=== PATIENT | male | born 1965 | race Caucasian/White ===

== ENCOUNTER → 2016-12-08 | Outpatient (CLI) | payer BC ==
[~2016-12-08] MED LIST: ATEN25TA PO; BAYE325T12 PO; ELIQ5TAB PO; FLEC150T PO; FLEC50TA PO
--- NOTE | 2016-12-10 06:27 | SLEEPCENT ---
DATE OF PROCEDURE: 12/08/2016 ORDERED BY: MIS Woods Nocturnal polysomnography was performed for re-titration of pressure therapy in this patient with obstructive sleep apnea syndrome. For testing, a ResMed Mirage Quattro full face mask was used of medium size. 10 cm of water was applied to the circuit and the lights were extinguished. 7 hours and 54 minutes of data were reviewed. There were 376 minutes of sleep identified. Sleep latency was mildly prolonged at 27 minutes. Rapid eye movement (REM) latency was short at 55 minutes. Sleep architecture was fair, but there was some fragmentation early in the study. Overall sleep efficiency was good at 81%. The patient's electrocardiogram (EKG) showed a sinus rhythm with an average heart rate of 56 beats per minute. Electroencephalogram (EEG) showed fairly normal waveforms for awake and sleep. Respiratory events were found best palliated with CPAP at pressure of +12. CPAP tolerance was reasonably good. Some limb activity was noted. Only 1 train of 30 events. Limb movement arousal index was 5.3. IMPRESSION: Obstructive sleep apnea syndrome (G47.33). RECOMMENDATION: Nightly use of pressure therapy 12 cm of water.
== END ==
LOC: M SLEEP 19:52
PROVIDERS: ATTEND Nurse Practitioner Adult Health
DX: G47.33 Obstructive sleep apnea (adult) (pediatric) (principal)

== ENCOUNTER → 2016-12-16 | Outpatient (REF) | payer BC ==
[2016-12-16 13:06] LABS: MEAN CORPUSCULAR HEMOGLOBIN 29.8 pg (27.0-33.0); MEAN CORPUSCULAR HGB CONC 33.2 g/dl (32.0-36.5); MEAN CORPUSCULAR VOLUME 89.5 fl (80.0-96.0); RED CELL DISTRIBUTION WIDTH 12.5 % (11.5-14.5); WHITE BLOOD COUNT 5.3 K/mm3 (4.0-10.0)
[2016-12-16 13:30] LABS: ALBUMIN 3.9 GM/DL (3.2-5.2); ALBUMIN/GLOBULIN RATIO 1.44 (1.00-1.93); ALKALINE PHOSPHATASE 65 U/L (45-117); ALT/SGPT 59 U/L (12-78); ANION GAP 6 MEQ/L (8-16); AST/SGOT 24 U/L (15-37); BILIRUBIN,TOTAL 0.5 MG/DL (0.2-1.0); BLOOD UREA NITROGEN 17 MG/DL (7-18); CALCIUM LEVEL 8.6 MG/DL (8.5-10.1); CARBON DIOXIDE LEVEL 31 MEQ/L (21-32); CHLORIDE LEVEL 104 MEQ/L (98-107); CHOLESTEROL LEVEL 170 MG/DL (<200); CREATININE FOR GFR 0.84 MG/DL (0.70-1.30); FREE T4 1.13 NG/DL (0.76-1.46); GLOMERULAR FILTRATION RATE > 60.0 (>60); GLUCOSE, FASTING 97 MG/DL (70-105); POTASSIUM SERUM 4.6 MEQ/L (3.5-5.1); SODIUM LEVEL 141 MEQ/L (136-145); TOTAL PROTEIN 6.6 GM/DL (6.4-8.2); TRIGLYCERIDES LEVEL 90 MG/DL (<150)
== END ==
LOC: M SFHCADAM 12:33
PROVIDERS: ATTEND Family Medicine
DX: R53.82 Chronic fatigue, unspecified (principal); R94.6 Abnormal results of thyroid function studies; E29.1 Testicular hypofunction; E55.9 Vitamin D deficiency, unspecified

== ENCOUNTER → 2017-05-29 | Outpatient (REF) | payer BC | LOC: M LAB REF 08:33 | PROVIDERS: ATTEND Family Medicine | DX: R19.7 Diarrhea, unspecified (principal) ==

== ENCOUNTER → 2017-10-27 | Outpatient (REF) | payer BC ==
[2017-10-27 12:35] LABS: MEAN CORPUSCULAR HEMOGLOBIN 29.7 pg (27.0-33.0); MEAN CORPUSCULAR HGB CONC 33.8 g/dl (32.0-36.5); PLATELET COUNT, AUTOMATED 197 10^3/uL (150-450); RED CELL DISTRIBUTION WIDTH 12.7 % (11.5-14.5); WHITE BLOOD COUNT 7.6 10^3/uL (4.0-10.0)
[2017-10-27 13:32] LABS: ALBUMIN 3.7 GM/DL (3.2-5.2); ALBUMIN/GLOBULIN RATIO 1.12 (1.00-1.93); ALKALINE PHOSPHATASE 67 U/L (45-117); ALT/SGPT 33 U/L (12-78); ANION GAP 5 MEQ/L (8-16); AST/SGOT 18 U/L (7-37); BILIRUBIN,TOTAL 0.4 MG/DL (0.2-1.0); BLOOD UREA NITROGEN 21 MG/DL (7-18); CALCIUM LEVEL 8.8 MG/DL (8.5-10.1); CARBON DIOXIDE LEVEL 31 MEQ/L (21-32); CHLORIDE LEVEL 107 MEQ/L (98-107); CHOLESTEROL LEVEL 196 MG/DL (<200); CREATININE FOR GFR 0.86 MG/DL (0.70-1.30); FREE T4 1.07 NG/DL (0.76-1.46); GLOMERULAR FILTRATION RATE > 60.0 (>56); GLUCOSE, FASTING 97 MG/DL (70-105); POTASSIUM SERUM 4.4 MEQ/L (3.5-5.1); PSA SCREENING 1.27 NG/ML (< 4.0); SODIUM LEVEL 143 MEQ/L (136-145); TRIGLYCERIDES LEVEL 53 MG/DL (<150)
== END ==
LOC: M SFHCADAM 08:19
DX: I48.91 Unspecified atrial fibrillation (principal); Z98.890 Other specified postprocedural states; I11.9 Hypertensive heart disease without heart failure; R94.6 Abnormal results of thyroid function studies; E78.5 Hyperlipidemia, unspecified; Z12.5 Encounter for screening for malignant neoplasm of prostate; E55.9 Vitamin D deficiency, unspecified
CPT/HCPCS: 84443

== ENCOUNTER → 2018-05-09 | Outpatient (REF) | payer BC ==
[2018-05-09 12:48] LABS: CHOLESTEROL LEVEL 188 MG/DL (<200); HDL CHOLESTEROL 39 MG/DL (>40); NON-HDL-C 149 MG/DL; TRIGLYCERIDES LEVEL 60 MG/DL (<150)
== END ==
LOC: M SFHCADAM 10:51
DX: E78.5 Hyperlipidemia, unspecified (principal)

== ENCOUNTER → 2018-11-16 | Outpatient (REF) | payer BC ==
[~2018-11-16] MED LIST changes: +FLEC50HA PO; -FLEC50TA PO
[2018-11-16 13:01] LABS: HEMATOCRIT 48.7 % (42.0-52.0); HEMOGLOBIN 16.1 g/dl (13.5-17.5); MEAN CORPUSCULAR HEMOGLOBIN 29.7 pg (27.0-33.0); MEAN CORPUSCULAR HGB CONC 33.1 g/dl (32.0-36.5); MEAN CORPUSCULAR VOLUME 89.9 fl (80.0-96.0); PLATELET COUNT, AUTOMATED 204 10^3/uL (150-450); RED BLOOD COUNT 5.42 10^6/uL (4.30-6.10); WHITE BLOOD COUNT 6.6 10^3/uL (4.0-10.0)
[2018-11-16 13:13] LABS: ALBUMIN 3.7 GM/DL (3.2-5.2); ALT/SGPT 34 U/L (12-78); BILIRUBIN,TOTAL 0.7 MG/DL (0.2-1.0); BLOOD UREA NITROGEN 16 MG/DL (7-18); CALCIUM LEVEL 8.9 MG/DL (8.5-10.1); CARBON DIOXIDE LEVEL 27 MEQ/L (21-32); CHLORIDE LEVEL 106 MEQ/L (98-107); CHOLESTEROL LEVEL 173 MG/DL (<200); CHOLESTEROL RISK RATIO 4.805 (<5); CREATININE FOR GFR 0.79 MG/DL (0.70-1.30); FREE T4 1.07 NG/DL (0.76-1.46); GLOMERULAR FILTRATION RATE > 60.0 (>56); GLUCOSE, FASTING 92 MG/DL (70-100); HDL CHOLESTEROL 36 MG/DL (>40); LDL CHOLESTEROL 125 MG/DL (<100); NON-HDL-C 137 MG/DL; POTASSIUM SERUM 4.4 MEQ/L (3.5-5.1); SODIUM LEVEL 142 MEQ/L (136-145); TOTAL PROTEIN 6.9 GM/DL (6.4-8.2); TRIGLYCERIDES LEVEL 60 MG/DL (<150)
== END ==
LOC: M SFHCADAM 08:11
PROVIDERS: ATTEND Family Medicine
DX: I11.9 Hypertensive heart disease without heart failure (principal); I48.91 Unspecified atrial fibrillation; R94.6 Abnormal results of thyroid function studies; E78.5 Hyperlipidemia, unspecified; Z12.5 Encounter for screening for malignant neoplasm of prostate
CPT/HCPCS: 80053; 80061; 84439; 84443; 85027; G0103

== ENCOUNTER 2019-01-08 08:10 | Day surgery (SDC) | payer BC ==
[~2019-01-08] VITALS: Ht 170.2 cm; Wt 85.3 kg
[~2019-01-08 08:10] MED LIST changes: +AMLO10TA5 PO; +ASPI1TAB PO; +SOTA80TA2 PO
[2019-01-08] MEDS ORDERED: LIDOCAINE 2% INJ 100 MG/5 ML SDV (FOR ANES.) As Ordered ONE (08:43)
[2019-01-08] MEDS ORDERED: PROPOFOL 200 MG/20 ML VIAL As Ordered ONE ×2 (08:43→09:34)
[2019-01-08] MEDS ORDERED: NS 1,000 ML IV ONE (09:00)
--- NOTE | 2019-01-08 09:45 | ROOR ---
Patient Name: Dyllan Cuevas Procedure Date: 01/08/2019 9:00 AM Date of : 1965 Age: 53 Room: [facility] Gender: Male Note Status: Finalized Procedure: Colonoscopy Indications: Screening for colorectal malignant neoplasm Providers: Aleks DUNCAN MD Referring MD: Aron Ayon MD Requesting Provider: Medicines: Monitored Anesthesia Care Complications: No immediate complications. Procedure: Pre-Anesthesia Assessment: - The heart rate, respiratory rate, oxygen saturations, blood pressure, adequacy of pulmonary ventilation, and response to care were monitored throughout the procedure. The Colonoscope was introduced through the anus and advanced to the cecum, identified by appendiceal orifice and ileocecal valve. The colonoscopy was performed without difficulty. The patient tolerated the procedure well. The quality of the bowel preparation was good. Findings: The perianal and digital rectal examinations were normal. A 40 mm polyp was found in the mid ascending colon. The polyp was multi-lobulated. The polyp was removed with a piecemeal technique using a hot snare. Polyp resection was incomplete, and the resected tissue was partially retrieved. To prevent bleeding after the polypectomy, six hemostatic clips were successfully placed. Area was successfully injected with 4 mL Vivian ink for tattooing. The ileocecal valve was moderately lipomatous. This was biopsied with a cold forceps for histology-r/o adenoma. The exam was otherwise without abnormality on direct and retroflexion views. Impression: - One large (~40 mm) flat multilobed polyp in the mid ascending colon, removed piecemeal using a hot snare. Polyp resection was INCOMPLETE, and the resected tissue was partially retrieved. Clips were placed. Injected with Tattoo. - Lipomatous ileocecal valve. Biopsied. - The examination was otherwise normal on direct and retroflexion views. Recommendation: - No ibuprofen, naproxen, or other non-steroidal anti-inflammatory drugs for 10 days after polyp removal. - Await pathology results. - If the pathology report is benign, then repeat colonoscopy for surveillance after piecemeal polypectomy in 4 months. - If the pathology report is malignant, then refer to a surgeon. - Telephone endoscopist for pathology results in 2 weeks. Aleks Duncan MD Aleks DUNCAN MD 01/08/2019 9:44:24 AM This report has been signed electronically. Number of Addenda: 0 Note Initiated On: 01/08/2019 9:00 AM Estimated Blood Loss: Estimated blood loss: none.
[2019-01-08 10:37] VITALS: BP 127/79
== END 2019-01-08 10:37 | disposition home or self-care (01) ==
LOC: M OPP 08:10
PROVIDERS: ATTEND Internal Medicine Gastroenterology
DX: Z12.11 Encounter for screening for malignant neoplasm of colon (principal); D12.2 Benign neoplasm of ascending colon; K63.89 Other specified diseases of intestine; I48.91 Unspecified atrial fibrillation; G47.30 Sleep apnea, unspecified; Z79.82 Long term (current) use of aspirin; Z79.899 Other long term (current) drug therapy

== ENCOUNTER → 2019-05-04 | Outpatient (REF) | payer BC ==
[~2019-05-04] MED LIST changes: -ASPI1TAB PO; +ASPI81TA26 PO
[2019-05-04 13:09] LABS: CHOLESTEROL RISK RATIO 4.093 (<5)
[2019-05-04 13:10] LABS: TOTAL 25(OH) VITAMIN D 55.6 NG/ML (30.0-100.0)
== END ==
LOC: M SFHCADAM 08:08
PROVIDERS: ATTEND Family Medicine
DX: I11.9 Hypertensive heart disease without heart failure (principal); I48.91 Unspecified atrial fibrillation; E78.5 Hyperlipidemia, unspecified; E55.9 Vitamin D deficiency, unspecified

== ENCOUNTER → 2019-05-10 | Outpatient (REF) | payer BC ==
[2019-05-10 13:41] LABS: FREE T4 0.99 NG/DL (0.76-1.46); THYROID STIMULATING HORMONE 2.71 uIU/ML (0.358-3.740)
== END ==
LOC: M SFHCADAM 08:48
PROVIDERS: ATTEND Family Medicine
DX: I48.91 Unspecified atrial fibrillation (principal); R94.6 Abnormal results of thyroid function studies

== ENCOUNTER 2019-08-07 07:51 | Day surgery (SDC) | payer BC ==
[~2019-08-07] VITALS: Ht 170.2 cm; Wt 83.0 kg
[~2019-08-07 07:51] MED LIST changes: +propofoL 200 MG/20 ML VIAL As Ordered ONE
[2019-08-07] MEDS ORDERED: NS 1,000 ML IV ONE (08:30)
[2019-08-07] MEDS ORDERED: propofoL 200 MG/20 ML VIAL As Ordered ONE (09:32)
--- NOTE | 2019-08-07 09:36 | ROOR ---
Patient Name: Dyllan Cuevas Procedure Date: 08/07/2019 9:00 AM Date of : 1965 Age: 53 Room: [facility] Gender: Male Note Status: Finalized Procedure: Colonoscopy Indications: Last colonoscopy: December 2018, Therapeutic procedure for known colon polyp, Therapeutic procedure for known colon mass Providers: Aleks DUNCAN MD Referring MD: Aron Ayon MD Requesting Provider: Medicines: Monitored Anesthesia Care Complications: No immediate complications. Procedure: Pre-Anesthesia Assessment: - The heart rate, respiratory rate, oxygen saturations, blood pressure, adequacy of pulmonary ventilation, and response to care were monitored throughout the procedure. The Colonoscope was introduced through the anus and advanced to the cecum, identified by appendiceal orifice and ileocecal valve. The colonoscopy was performed without difficulty. The patient tolerated the procedure well. The quality of the bowel preparation was good. Findings: The perianal and digital rectal examinations were normal. A tattoo was seen in the mid ascending colon. The tattoo site appeared abnormal. A 30 mm polyp was found in the mid ascending colon. The polyp was sessile. The polyp was removed with a hot snare. Resection and retrieval were complete. The exam was otherwise without abnormality on direct and retroflexion views. Impression: - A tattoo was seen in the mid ascending colon. The tattoo site appeared abnormal. - One 25-30 mm residual polyp/lesion in the mid ascending colon, removed sucessfully piecemeal with a hot snare. Resected piecemeal and retrieved. Final visual result suggests excision is complete. - The examination was otherwise normal on direct and retroflexion views. Recommendation: - No ibuprofen, naproxen, or other non-steroidal anti-inflammatory drugs for 10 days after polyp removal. - Await pathology results. - Repeat colonoscopy in 1 year for surveillance after piecemeal polypectomy. - Telephone endoscopist for pathology results in 2 weeks. Aleks Duncan MD Aleks DUNCAN MD 08/07/2019 9:36:23 AM Electronically signed by Aleks DUNCAN MD Number of Addenda: 0 Note Initiated On: 08/07/2019 9:00 AM Estimated Blood Loss: Estimated blood loss: none.
[2019-08-07 09:50] VITALS: BP 120/72
== END 2019-08-07 10:03 | disposition home or self-care (01) ==
LOC: M OPP 07:51
PROVIDERS: ATTEND Internal Medicine Gastroenterology
DX: D37.4 Neoplasm of uncertain behavior of colon (principal); Z86.010 Personal history of colon polyps; D12.2 Benign neoplasm of ascending colon; K63.89 Other specified diseases of intestine; I48.91 Unspecified atrial fibrillation; I10 Essential (primary) hypertension; G47.30 Sleep apnea, unspecified; Z79.82 Long term (current) use of aspirin; Z79.899 Other long term (current) drug therapy

== ENCOUNTER → 2019-11-15 | Outpatient (REF) | payer BC ==
[~2019-11-15] MED LIST changes: -propofoL 200 MG/20 ML VIAL As Ordered ONE
[2019-11-15 12:51] LABS: HEMATOCRIT 52.9 % (42.0-52.0); HEMOGLOBIN 17.1 g/dl (13.5-17.5); MEAN CORPUSCULAR HEMOGLOBIN 29.3 pg (27.0-33.0); MEAN CORPUSCULAR HGB CONC 32.3 g/dl (32.0-36.5); MEAN CORPUSCULAR VOLUME 90.7 fl (80.0-96.0); PLATELET COUNT, AUTOMATED 169 10^3/uL (150-450); RED BLOOD COUNT 5.83 10^6/uL (4.30-6.10); WHITE BLOOD COUNT 7.2 10^3/uL (4.0-10.0)
[2019-11-15 13:03] LABS: ALBUMIN 3.9 GM/DL (3.2-5.2); ALT/SGPT 41 U/L (12-78); BILIRUBIN,TOTAL 0.5 MG/DL (0.2-1.0); BLOOD UREA NITROGEN 18 MG/DL (7-18); CALCIUM LEVEL 8.6 MG/DL (8.5-10.1); CARBON DIOXIDE LEVEL 28 MEQ/L (21-32); CHLORIDE LEVEL 109 MEQ/L (98-107); CHOLESTEROL LEVEL 188 MG/DL (<200); CHOLESTEROL RISK RATIO 4.947 (<5); CREATININE FOR GFR 0.86 MG/DL (0.70-1.30); FREE T4 0.96 NG/DL (0.76-1.46); GLOMERULAR FILTRATION RATE > 60.0 (>56); GLUCOSE, FASTING 93 MG/DL (70-100); HDL CHOLESTEROL 38 MG/DL (>40); LDL CHOLESTEROL 140 MG/DL (<100); NON-HDL-C 150 MG/DL; POTASSIUM SERUM 4.3 MEQ/L (3.5-5.1); SODIUM LEVEL 141 MEQ/L (136-145); TOTAL PROTEIN 7.1 GM/DL (6.4-8.2); TRIGLYCERIDES LEVEL 52 MG/DL (<150)
[2019-11-15 13:04] LABS: VITAMIN B12 LEVEL 730 PG/ML (247-911)
[2019-11-15 15:16] LABS: FOLATE > 24.0 NG/ML (>5.4)
== END ==
LOC: M SFHCADAM 08:04
PROVIDERS: ATTEND Family Medicine
DX: Z12.5 Encounter for screening for malignant neoplasm of prostate (principal); R53.83 Other fatigue; I11.9 Hypertensive heart disease without heart failure; E78.5 Hyperlipidemia, unspecified; R94.6 Abnormal results of thyroid function studies
CPT/HCPCS: 80053; 80061; 82607; 82746; 84439; 84443; 85027; G0103

== ENCOUNTER → 2020-01-01 | Outpatient (REF) | payer BC ==
[2020-01-01 13:04] LABS: FREE T4 1.13 NG/DL (0.76-1.46); THYROID STIMULATING HORMONE 0.98 uIU/ML (0.358-3.740)
== END ==
LOC: M SFHCADAM 08:16
PROVIDERS: ATTEND Family Medicine
DX: E03.9 Hypothyroidism, unspecified (principal)

== ENCOUNTER → 2020-01-10 | Outpatient (REF) | payer BC ==
[2020-01-10 13:23] LABS: HEMATOCRIT 50.3 % (42.0-52.0); HEMOGLOBIN 16.3 g/dl (13.5-17.5); MEAN CORPUSCULAR HEMOGLOBIN 29.4 pg (27.0-33.0); MEAN CORPUSCULAR HGB CONC 32.4 g/dl (32.0-36.5); MEAN CORPUSCULAR VOLUME 90.8 fl (80.0-96.0); PLATELET COUNT, AUTOMATED 167 10^3/uL (150-450); RED BLOOD COUNT 5.54 10^6/uL (4.30-6.10); WHITE BLOOD COUNT 9.2 10^3/uL (4.0-10.0)
[2020-01-10 13:52] LABS: ALBUMIN 3.8 GM/DL (3.2-5.2); ALT/SGPT 39 U/L (12-78); BILIRUBIN,TOTAL 0.6 MG/DL (0.2-1.0); BLOOD UREA NITROGEN 20 MG/DL (7-18); CALCIUM LEVEL 9.2 MG/DL (8.5-10.1); CARBON DIOXIDE LEVEL 30 MEQ/L (21-32); CHLORIDE LEVEL 108 MEQ/L (98-107); CREATININE FOR GFR 0.77 MG/DL (0.70-1.30); GLOMERULAR FILTRATION RATE > 60.0 (>56); GLUCOSE, FASTING 112 MG/DL (70-100); POTASSIUM SERUM 4.2 MEQ/L (3.5-5.1); SODIUM LEVEL 141 MEQ/L (136-145); TOTAL PROTEIN 6.9 GM/DL (6.4-8.2)
[2020-01-12 00:11] LABS: LEAD BLOOD ADULT <1 ug/dL (0-4); MERCURY LEVEL None Detected ug/L (0.0-14.9)
== END ==
LOC: M SFHCADAM 10:37
PROVIDERS: ATTEND Family Medicine
DX: R53.83 Other fatigue (principal); Z91.89 Other specified personal risk factors, not elsewhere classified

== ENCOUNTER → 2020-04-23 | Outpatient (REF) | payer BC ==
[~2020-04-23] MED LIST changes: -AMLO10TA5 PO; +AMLO1TAB25 PO
[2020-04-23 17:40] LABS: FREE T4 1.05 NG/DL (0.76-1.46); MAGNESIUM LEVEL 2.4 MG/DL (1.8-2.4); THYROID STIMULATING HORMONE 0.77 uIU/ML (0.358-3.740); TOTAL 25(OH) VITAMIN D 28.3 NG/ML (30.0-100.0)
== END ==
LOC: M SFHCADAM 15:08
PROVIDERS: ATTEND Family Medicine
DX: R94.6 Abnormal results of thyroid function studies (principal); I48.91 Unspecified atrial fibrillation; E55.9 Vitamin D deficiency, unspecified

== ENCOUNTER → 2020-09-08 | Outpatient (REF) | payer BC ==
[2020-09-08 13:55] LABS: HEMATOCRIT 51.6 % (42.0-52.0); HEMOGLOBIN 16.3 g/dl (13.5-17.5); MEAN CORPUSCULAR HEMOGLOBIN 29.2 pg (27.0-33.0); MEAN CORPUSCULAR HGB CONC 31.6 g/dl (32.0-36.5); MEAN CORPUSCULAR VOLUME 92.3 fl (80.0-96.0); PLATELET COUNT, AUTOMATED 183 10^3/uL (150-450); RED BLOOD COUNT 5.59 10^6/uL (4.30-6.10); WHITE BLOOD COUNT 5.8 10^3/uL (4.0-10.0)
[2020-09-08 14:59] LABS: ALBUMIN 3.8 GM/DL (3.2-5.2); ALT/SGPT 45 U/L (12-78); BILIRUBIN,TOTAL 0.7 MG/DL (0.2-1.0); BLOOD UREA NITROGEN 17 MG/DL (7-18); CALCIUM LEVEL 9.2 MG/DL (8.5-10.1); CARBON DIOXIDE LEVEL 31 MEQ/L (21-32); CHLORIDE LEVEL 107 MEQ/L (98-107); GLOMERULAR FILTRATION RATE > 60.0 (>56); GLUCOSE, FASTING 95 MG/DL (70-100); POTASSIUM SERUM 4.5 MEQ/L (3.5-5.1); SODIUM LEVEL 141 MEQ/L (136-145)
== END ==
LOC: M SFHCADAM 08:21
PROVIDERS: ATTEND Family Medicine
DX: E55.9 Vitamin D deficiency, unspecified (principal); B35.1 Tinea unguium

== ENCOUNTER → 2020-12-04 | Outpatient (REF) | payer BC | LOC: M SFHCADAM 13:52 | PROVIDERS: ATTEND Physician Assistant | DX: J01.90 Acute sinusitis, unspecified (principal) ==

== ENCOUNTER → 2020-12-19 | Outpatient (CLI) | payer BC ==
[~2020-12-19] MED LIST changes: +LEVO50TA5 PO; +METO1TAB7 PO
== END ==
LOC: M LABSMTC 13:06
PROVIDERS: ATTEND Anesthesiology
DX: Z01.812 Encounter for preprocedural laboratory examination (principal); Z20.822 Contact with and (suspected) exposure to COVID-19

== ENCOUNTER 2020-12-23 11:43 | Day surgery (SDC) | payer BC ==
[~2020-12-23] VITALS: Ht 170.2 cm; Wt 87.1 kg
[~2020-12-23 11:43] MED LIST changes: +NS 1,000 ML IV ONE
--- OUTSIDE RECORDS SUMMARY | 2020-12-23 11:46 | CCD | Continuity of Care Document ---
Author Author Dyllan SURESH Organization Unknown Address [address], [place] [address] Phone [phone] Care Team Providers Care Financial Processing Clerk Name Role Phone Aron Ayon MD AUTM [phone] Problems Active Problems Provider Date Allergic rhinitis due to house dust mite Jordon Suresh M.D. Onset: 07/09/2020 Note: On IT. 3+ reaction to dust mite on intradermal test completed in 2018. Allergic rhinitis due to pollen Onset: 0 03/16/2018 Note: On IT. 2+ reaction to tree mix #1 and ragweed on intradermal test completed in 2019. Essential hypertension ISABELL Gibson Onset: 08/23/20 19 Vasomotor rhinitis Jordon Suresh M.D. Onset: 020 Social History Type Date Description Comments Sex Unknown Tobacco Use Reviewed: 07/10/20 Patient has never smoked Smoking Status Reviewed: 07/10/20 Patient has never smoked Allergies, Adverse Reactions, Alerts Description No Known Drug Allergies Medications Active Medications SIG Qnty Indications Ordering Provide r Date Levocetirizine Dihydrochloride 5mg Tablets take 1 tablet (5 mg) by oral route once daily prn itching and sn eezing 30tabs Jordon Suresh M.D. 08/13/2020 Azelastine HCL (Nasal) 0.15% Solut ion 2 sprays each nostril twice a day for congestion 90ml J30.0 Jordon Suresh M.D. 07/10/2020 Flonase Allergy Relief 50mcg/Act Suspension 2 sprays each nostril daily for congestion 15.800ml J30.8 9 Jordon Suresh M.D. 03/06/2020 Levothyroxine Sodium 100mcg Tablet s Take one half-tablet ( 50 mcg) by mouth once daily as directed Unknown SM Aspirin Adult Low Strength 81mg Tablets DR Unknown Metoprolol Succinate ER 50mg Tablets ER 24HR Take One Tablet By Mouth Every Day Unknow n Medications Administered in Office Medication SIG Qnty Indications Ordering Provider Date Allergy Injection 2 Or More Injection Jordon Suresh M.D. 12/22/2020 Allergy Injection 2 Or More Injection Jordon Suresh M.D. 12/03/2020 Allergy Injection 2 Or More Injection Jordon Suresh M.D. 11/11/2020 Allergy Injection 2 Or More Injection Jordon Suresh M.D. 10/21/2020 Allergy Injection 2 Or More Injection Jordon Suresh M.D. 09/30/2020 Allergy Injection 2 Or More Injection Jordon Suresh M.D. 09/11/2020 Allergy Injection 2 Or More Injection Jordon Suresh M.D. 08/21/2020 Allergy Injection 2 Or More Injection MIS Chavez 07/31/2020 Allergy Injection 2 Or More Injection Jordon Suresh M.D. 07/31/2020 Allergy Injection 2 Or More Injection Jordon Suresh M.D. 07/10/2020 Allergy Injection 2 Or More Injection Jordon Suresh M.D. 06/17/2020 Allergy Injection 2 Or More Injection Jordon Suresh M.D. 05/29/2020 Allergy Injection 2 Or More Injection Jordon Suresh M.D. 05/08/2020 Allergy Injection 2 Or More Injection Jordon Suresh M.D. 04/17/2020 Allergy Injection 2 Or More Injection Jordon Suresh M.D. 03/27/2020 Allergy Injection 2 Or More Injection Jordon Suresh M.D. 03/05/2020 Allergy Injection 2 Or More Injection Jordon Suresh M.D. 02/14/2020 Allergy Injection 2 Or More Injection Jordon Suresh M.D. 01/24/2020 Allergy Injection 2 Or More Injection Camila Perla.Allyssa 01/01/2020 Allergy Injection 2 Or More Injection Jordonterrie Suresh M.DMarie 12/18/2019 Allergy Injection 2 Or More Injection Jordonterrie Suresh M.DMarie 12/11/2019 Allergy Injection 2 Or More Injection Jordonterrie Suresh M.DMarie 12/04/2019 Allergy Injection 2 Or More Injection JordonCamila Bob.DMarie 11/27/2019 Allergy Injection 2 Or More Injection Jordonterrie Suresh M.DMarie 11/20/2019 Allergy Injection 2 Or More Injection Jordonterrie Suresh M.DMarie 11/13/2019 Allergy Injection 2 Or More Injection JordonCamila Bob.DMarie 11/06/2019 Allergy Injection 2 Or More Injection JordonCamila Bob.DMarie 10/29/2019 Allergy Injection 2 Or More Injection Camila Perla.Allyssa 10/22/2019 Allergy Injection 2 Or More Injection Camila Perla.Allyssa 10/16/2019 Allergy Injection 2 Or More Injection Jordon Suresh M.DMarie 10/10/2019 Allergy Injection 2 Or More Injection Camila Perla.lAlyssa 10/02/2019 Allergy Injection 2 Or More Injection Camila Perla.DMarie 09/25/2019 Allergy Injection 2 Or More Injection Jordonterrie Suresh M.DMarie 09/18/2019 Allergy Injection 2 Or More Injection Camila Perla.DMarie 09/11/2019 Allergy Injection 2 Or More Injection Jordon Suresh M.DMarie 09/04/2019 Allergy Injection 2 Or More Injection Jordonterrie Suresh M.DMarie 08/28/2019 Allergy Injection 2 Or More Injection Jordonterrie Suresh M.DMarie 08/21/2019 Allergy Injection 2 Or More Injection Jordonterrie Suresh M.DMarie 08/14/2019 Allergy Injection 2 Or More Injection Jordonterrie Suresh M.DMarie 08/07/2019 Allergy Injection 2 Or More Injection ISABELL Gibson 07/31/2019 Allergy Injection 2 Or More Injection Jordonterrie Suresh M.D. 07/31/2019 Allergy Injection 2 Or More Injection NATHANAEL Gibson-Jean 07/24/2019 Allergy Injection 2 Or More Injection Jordon Suresh M.D. 07/24/2019 Allergy Injection 2 Or More Injection Jordon Suresh M.D. 07/17/2019 Allergy Injection 2 Or More Injection Jordon Suresh M.D. 07/10/2019 Allergy Injection 2 Or More Injection Jordon Suresh M.D. 07/03/2019 Allergy Injection 2 Or More Injection Jordon Suresh M.D. 06/26/2019 Immunizations Description No Information Available Vital Signs Date Vital Result Comment 07/10/2020 3:52pm Weight 188.50 lb Height 67 inches 5'7" Heart Rate 66 /min Respiratory Rate 16 /min BP Systolic 138 mmHg BP Diastolic 77 mmHg BMI (Body Mass Index) 29.5 kg/m2 03/06/2020 3:47pm Weight 188.38 lb Height 67 inches 5'7" Heart Rate 61 /min Respiratory Rate 18 /min BP Systolic 154 mmHg BP Diastolic 76 mmHg BMI (Body Mass Index) 29.5 kg/m2 Results Description No Information Available Procedures Date Code Description Status 12/22/2020 06697 Allergy Injection 2 Or More Comp leted 12/03/2020 37040 Allergy Injection 2 Or More Comp leted 11/11/2020 99062 Allergy Injection 2 Or More Comp leted 10/21/2020 49880 Allergy Injection 2 Or More Comp leted 09/30/2020 96177 Allergy Injection 2 Or More Comp leted 09/19/2020 41528 Allergy Antigens Single Or Multi ple Completed 09/11/2020 91823 Allergy Injection 2 Or More Comp leted 08/21/2020 86821 Allergy Injection 2 Or More Comp leted 07/31/2020 72627 Allergy Injection 2 Or More Comp leted 07/31/2020 65886 Allergy Injection 2 Or More Comp leted 07/10/2020 93607 Allergy Injection 2 Or More Comp leted Medical Devices Description No Information Available Encounters Description No Information Available Assessments Date Code Description Provider 12/22/2020 J30.1 Allergic rhinitis due to pollen Jordon Suresh M.D. 12/22/2020 J30.89 Other allergic rhinitis Jordon Suresh M.D. Plan of Treatment Future Appointment(s):* 03/10/2021 9:15 am - Jordon Suresh M.D. at Main Office 07/10/2020 - Jordon Suresh M.D.* J30.1 Allergic rhinitis due to pollen* Recommendations:* The patient should stay on immunotherapy as per protocol. Risks and benefits associated with allergy injections were reviewed. Because of severity of symptoms and significant nonallergic component to his symptoms I decided to start mr. Cuevas on Astelin. * J30.89 Allergic rhinitis due to house dust mite* Recommendations:* See recommendations above. * J30.0 Vasomotor rhinitis* New Medication:* Azelastine HCL (Nasal) 0.15 % - 2 sprays each nostril twice a day for congestion * Recommendations:* Because his rhinitis problem is to some extent nonallergic I recommended to try this patient on Astelin nasal as that spray is considered more effective in treating nonallergic rhinitis symptoms. * All * Follow up:* 8 months. Sooner if needed. Functional Status Description No Information Available Mental Status Description No Information Available Referrals Description No Information Available
--- OUTSIDE RECORDS SUMMARY | 2020-12-23 11:46 | CCD ---
Author Author [facility] Organization [facility] Address Unknown Phone Unavailable Care Team Providers Care Land Title Examiner Name Role Phone Katie Harvey Unavailable PROBLEMS Type Condition ICD9-CM Code RNO07-SA Code Onset Dates Condition S tatus W/U Status Risk SNOMED Code Notes Problem Low testosterone level in male E29.1 Active confir med 325191046 Problem S/P ablation of atrial fibrillation Z98.89 Active c onfirmed Problem KIKI on CPAP G47.33 Active confirmed 03210062 Problem Potential for heavy metal poisoning Z91.89 Acti ve confirmed 15887073 Problem Thyroid function test abnormal R94.6 Active confir med 216030223 Problem Atrial fibrillation I48.91 Active confirmed 13244106 converted to NSR, Eliquis d/c 18 by cardio Problem Personal history of other diseases of the circulatory syst em Z86.79 Active confirmed 076269640 Problem Chronic fatigue and malaise R53.82 Active confirmed 424057821 Problem Hypertensive heart disease without heart failure I 11.9 Active confirmed 67093527 Problem Allergic rhinitis, unspecified J30.9 Active confir med 21644860 Problem Vitamin D deficiency E55.9 Active confirmed 97874853 Problem Hypothyroidism, unspecified type E03.9 Active conf irmed 10256609 Problem Allergic rhinitis J30.9 Active confirmed 61 187969 Problem Allergic rhinitis, unspecifi ed allergic rhinitis trigger, unspecified rhinitis seasonality J30.9 Active confirmed 11904339 Problem Screening for prostate cancer Z12.5 Active confirm ed 306696520 Problem Other and unspecified hyperlipidemia E78.5 Act stephanie confirmed 88324369 Problem Acute atopic conjunctivitis, bilateral H10.13 A ctive confirmed [id number] ALLERGIES No Known Allergies ENCOUNTERS from 1965 to 2020-12-18 Encounter Location Date Provider Diagnosis [facility] D[facility]at[facility] [address] [place] [address] Dec, Katie Harvey IMMUNIZATIONS No Information SOCIAL HISTORY Tobacco Use: Social History Observation Description Date Details (start date - stop date) Never Smoker Sex Assigned At : Social History Observation Description Sex Assigned At Unknown Audit Question Answer Notes Interpretation: Alcohol Education Total Score: 0 Sexual Hx: Question Answer Notes Had sex in the last 12 months (vaginal, oral, or anal)? No Have you ever had an STD? No Drug and Alcohol Question Answer Notes Interpretation: No problems reported Total Score: 0 Tobacco Use: Question Answer Notes Are you a: never smoker REASON FOR REFERRAL No Information VITAL SIGNS No information MEDICATIONS Medication SIG (Take, Route, Frequency, Duration) Notes Start Da te End Date Status Amoxicillin 875 MG 1 tablet Orally every 12 hrs for 10 days Dec, Active Levothyroxine Sodium 50 MCG 1 tablet in the morning on an empty stomach Orally Once a day for 30 Active Diflucan 150 MG 1 tablet Orally once weekly as instructed for 30 days Active Metoprolol Tartrate 50 MG 1 tablet with food Orally Daily Active Vitamin D 125 MCG (5000 UT) 1 capsule Orally twice a week Active Flonase Allergy Relief 50 MCG/ACT 1 spray in each nost ril Nasally Once a day for 30 day(s) Not-Taking Aspir-81 81 MG 2 tablet Orally Once a day Active Diflucan 150 MG 1 tablet Orally Once a week for 30 days Apr, Active PROCEDURES No Information RESULTS No Results REASON FOR VISIT RX refill MEDICAL (GENERAL) HISTORY Type Description Date Medical History at [facility], failed ablation-- fo [place] cardio Dr Sorenson (limited records). Converted NSR, taken off Eliquis by cardio 02/15, started aspirin Medical History chronic fatigue Medical History ? hypothyroidism-- saw endoc rine 03/15, nl TFTs off TRT, felt to be euthyroid; nl TFT 10/16 Medical History hypogonadism- saw endo 03/15, offered tx/ declined Medical History contaminated well 2015, saw chalk cutter [facility] 05/15, felt to be w/o evidence of poisoning Medical History all rhinitis Medical History KIKI, on nasal CPAP Medical History TIA Medical History HTN Medical History Vit D defic-- resolved 11/20 Medical History hyperlipidemia-10 yr ASCVD risk 3.7% (6 ) Surgical History cardiac ablation Dr Delta ABDI 03/08/15 Surgical History colonoscopy--tubular adenoma (fragments) 01/16 Hospitalization History at [facility]-- [facility]15 Goals Section No Information Health Concerns No Information MEDICAL EQUIPMENT No Information MENTAL STATUS No Information FUNCTIONAL STATUS No Information ASSESSMENTS No Information PLAN OF TREATMENT Medication Medication Name Sig Start Date Stop Date Diflucan 150 MG 1 tablet Orally Once a week for 30 days Apr, Amoxicillin 875 MG 1 tablet Orally every 12 hrs for 10 days 05 eb, 2020 Next Appt Details Provider Name:Katie Harvey, 02:30:00 PM, [address], [address], [place], [address], Provider Name:Aron Gabo, 2021-02 08:15:00 AM, [address], [place], [address], Insurance Providers Payer Name Payer Address Payer Phone Insured Name Patient Relati onship to Insured Coverage Start Date Coverage End Date BCBS [place] PPO [phone] [facility] [place] [id number] [place] O[employer] self
--- OUTSIDE RECORDS SUMMARY | 2020-12-23 11:47 | CCD ---
Author Author [facility] Organization [facility] Address Unknown Phone Unavailable Care Team Providers Care Relations Specialist Name Role Phone Aron Ayon Unavailable PROBLEMS Type Condition ICD9-CM Code [id number] Code Onset Dates Condition S tatus SNOMED Code Notes Problem Low testosterone level in male E29.1 Active 1 77938051 Problem S/P ablation of atrial fibrillation Z98.89 Acti ve Problem KIKI on CPAP G47.33 Active 80749030 Problem Potential for heavy metal poisoning Z91.89 Acti ve 08734912 Problem Thyroid function test abnormal R94.6 Active 3 69028467 Problem Atrial fibrillation I48.91 Active 83835201 con verted to Erum ARTEAGA d/c 02/15 by cardio Problem Personal history of other diseases of the circulatory syst em Z86.79 Active 326527020 Problem Chronic fatigue and malaise R53.82 Active 2717 23776 Problem Hypertensive heart disease without heart failure I 11.9 Active 68598110 Problem Allergic rhinitis, unspecified J30.9 Active 6 4846394 Problem Vitamin D deficiency E55.9 Active 95953610 Problem Hypothyroidism, unspecified type E03.9 Active 04638858 Problem Allergic rhinitis J30.9 Active 21410046 Problem Allergic rhinitis, unspecifi ed allergic rhinitis trigger, unspecified rhinitis seasonality J30.9 Active 88001220 Problem Screening for prostate cancer Z12.5 Active 24 2416825 Problem Other and unspecified hyperlipidemia E78.5 Act stephanie 10717913 Problem Acute atopic conjunctivitis, bilateral H10.13 A ctive 414201627 ALLERGIES No Known Allergies ENCOUNTERS from 1965 to 2020-11-18 Encounter Location Date Provider Diagnosis [facility] [address] [place] [address] Oct, Bharathi Ayon Hypothyroidism, unspecified type E03.9 IMMUNIZATIONS No Information SOCIAL HISTORY Tobacco Use: Social History Observation Description Date Details (start date - stop date) Never Smoker Sex Assigned At : Social History Observation Description Sex Assigned At Unknown Audit Question Answer Notes Total Score: 0 Interpretation: Alcohol Education Sexual Hx: Question Answer Notes Had sex in the last 12 months (vaginal, oral, or anal)? No Have you ever had an STD? No Drug and Alcohol Question Answer Notes Total Score: 0 Interpretation: No problems reported Tobacco Use: Question Answer Notes Are you a: never smoker REASON FOR REFERRAL No Information VITAL SIGNS No information MEDICATIONS Medication SIG (Take, Route, Frequency, Duration) Notes Start Da te End Date Status Vitamin D 125 MCG (5000 UT) 1 capsule Orally twice a week Active Aspir-81 81 MG 2 tablet Orally Once a day Active Levothyroxine Sodium 50 MCG 1 tablet in the morning on an empty stomach Orally Once a day for 30 Active Flonase Allergy Relief 50 MCG/ACT 1 spray in each nost ril Nasally Once a day for 30 day(s) Not-Taking Diflucan 150 MG 1 tablet Orally Once a week for 30 days Apr, Active Metoprolol Tartrate 50 MG 1 tablet with food Orally Daily Active Diflucan 150 MG 1 tablet Orally once weekly as instructed for 30 days Aug, Active PROCEDURES No Information RESULTS No Results REASON FOR VISIT refill MEDICAL (GENERAL) HISTORY Type Description Date Medical History at [facility], failed ablation[facility] cardio [facility] Sorenson (limited records). Converted NSR, taken off Eliquis by cardio 02/15, started aspirin Medical History chronic fatigue Medical History ? hypothyroidism-- saw endoc rine 03/15, nl TFTs off TRT, felt to be euthyroid; nl TFT 10/16 Medical History hypogonadism- saw endo 03/15, offered tx/ declined Medical History contaminated well 2015, saw guard lieutenant TRINIDAD 05/15, felt to be w/o evidence of poisoning Medical History all rhinitis Medical History KIKI, on nasal CPAP Medical History TIA Medical History HTN Medical History Vit D defic-- resolved 09/19 Medical History hyperlipidemia-10 yr ASCVD risk 3.7% () Surgical History cardiac ablation Dr Delta ABDI 03/08/15 Surgical History colonoscopy--tubular adenoma (fragments) 01/16 Hospitalization History at [facility]-- [facility] 10/13/15 Goals Section No Information Health Concerns No Information MEDICAL EQUIPMENT No Information MENTAL STATUS No Information FUNCTIONAL STATUS No Information ASSESSMENTS Encounter Date Diagnosis Assessment Notes Treatment Notes Treatm ent Clinical Notes Oct, Hypothyroidism, unspecified type (ICD-10 - E03.9 ) PLAN OF TREATMENT Medication Medication Name Sig Start Date Stop Date Metoprolol Tartrate 50 MG 1 tablet with food Orally Daily Vitamin D 125 MCG (5000 UT) 1 capsule Orally twice a week Aspir-81 81 MG 2 tablet Orally Once a day Levothyroxine Sodium 50 MCG 1 tablet in the morning on an empty stomach Orally Once a day for 30 Diflucan 150 MG 1 tablet Orally once weekly as instructe d for 30 days Aug, Next Appt Details Provider Name:Katie Harvey, 11:15:00 AM, [address] [place], [address], Insurance Providers Payer Name Payer Address Payer Phone Insured Name Patient Relati onship to Insured Coverage Start Date Coverage End Date [facility] [phone] [facility] Ablynx [address] [facility] [id number] EST[place]LS[place] self
--- OUTSIDE RECORDS SUMMARY | 2020-12-23 11:47 | CCD ---
Author Author [facility] Organization [facility] Address Unknown Phone Unavailable Care Team Providers Care Garment Form Assembler Name Role Phone Xiao Ayon Unavailable PROBLEMS Type Condition ICD9-CM Code [id number] Code Onset Dates Condition S tatus W/U Status Risk SNOMED Code Notes Problem Low testosterone level in male E29.1 Active confir med 904477347 Problem S/P ablation of atrial fibrillation Z98.89 Active c onfirmed Problem KIKI on CPAP G47.33 Active confirmed 96020253 Problem Potential for heavy metal poisoning Z91.89 Acti ve confirmed 56468246 Problem Thyroid function test abnormal R94.6 Active confir med 714559317 Problem Atrial fibrillation I48.91 Active confirmed 40759621 converted to NSR, Eliquis d/c /18 by cardio Problem Personal history of other diseases of the circulatory syst em Z86.79 Active confirmed 364801078 Problem Chronic fatigue and malaise R53.82 Active confirmed 434712834 Problem Hypertensive heart disease without heart failure I 11.9 Active confirmed 63084029 Problem Allergic rhinitis, unspecified J30.9 Active confir med 14639215 Problem Vitamin D deficiency E55.9 Active confirmed 35975840 Problem Hypothyroidism, unspecified type E03.9 Active conf irmed 89762058 Problem Allergic rhinitis J30.9 Active confirmed 61 419877 Problem Allergic rhinitis, unspecifi ed allergic rhinitis trigger, unspecified rhinitis seasonality J30.9 Active confirmed 30679460 Problem Screening for prostate cancer Z12.5 Active confirm ed 222045420 Problem Other and unspecified hyperlipidemia E78.5 Act stephanie confirmed 66704216 Problem Acute atopic conjunctivitis, bilateral H10.13 A ctive confirmed 318349617 ALLERGIES No Known Allergies ENCOUNTERS from 1965 to 2020-12-05 Encounter Location Date Provider Diagnosis [address] [address] Dec, Xiao Ayon IMMUNIZATIONS No Information SOCIAL HISTORY Tobacco Use: [...] weekly as instructed for 30 days Active Diflucan 150 MG 1 tablet Orally Once a week for 30 days Apr, Active Vitamin D 125 MCG (5000 UT) 1 capsule Orally twice a week Active Flonase Allergy Relief 50 MCG/ACT 1 spray in each nost ril Nasally Once a day for 30 day(s) Not-Taking Aspir-81 81 MG 2 tablet Orally Once a day Active Metoprolol Tartrate 50 MG 1 tablet with food Orally Daily Active PROCEDURES No Information RESULTS No Results REASON FOR VISIT Sinus drainge MEDICAL (GENERAL) HISTORY Type Description Date Medical History at [facility], failed ablation-- fo [facility] cardio Dr Sorenson (limited records). Converted NSR, taken off Eliquis by cardio 02/15, started aspirin Medical History chronic fatigue Medical History ? hypothyroidism-- saw endoc rine 03/15, nl TFTs off TRT, felt to be euthyroid; nl TFT 10/16 Medical History hypogonadism- saw endo 03/15, offered tx/ declined Medical History contaminated well 2015, saw mica washer gluer TRINIDAD 05/15, felt to be w/o evidence of poisoning Medical History all rhinitis Medical History KIKI, on nasal CPAP Medical History TIA Medical History HTN Medical History Vit D defic-- resolved 09/19 Medical History hyperlipidemia-10 yr ASCVD risk 3.7% (6 ) Surgical History cardiac ablation Dr Delta ABDI 03/08/15 Surgical History colonoscopy--tubular adenoma (fragments) 01/16 Hospitalization History at [facility]-- [facility] 10/13/15 Goals Section No Information Health Concerns No Information MEDICAL EQUIPMENT No Information MENTAL STATUS No Information FUNCTIONAL STATUS No Information ASSESSMENTS No Information PLAN OF TREATMENT Medication Medication Name Sig Start Date Stop Date Amoxicillin 875 MG 1 tablet Orally every 12 hrs for 10 days 05 F , 2020 Next Appt Details Provider Name:Katie Harvey, 02:30:00 PM, [address] [facility], [address] Floor, [place], [address], Insurance Providers Payer Name Payer Address Payer Phone Insured Name Patient Relati onship to Insured Coverage Start Date Coverage End Date BCBS [place] [facility] [id number] [facility] [place] [id number] ESTEVAN OLSEN self
--- OUTSIDE RECORDS SUMMARY | 2020-12-23 11:47 | CCD | Continuity of Care Document ---
Author Author Dyllan SURESH Organization Unknown Address [address], [place] [address] Phone [phone] Care Team Providers Care Infantry Assaultman Name Role Phone Aron Ayon MD AUTM [phone] Problems Active Problems Provider Date Allergic rhinitis [...] 01/24/2020 Allergy Injection 2 Or More Injection Jordon Suresh M.D. 01/01/2020 Allergy Injection 2 Or More Injection Jordon Suresh M.D. 12/18/2019 Allergy Injection 2 Or More Injection Jordon Suresh M.D. 12/11/2019 Allergy Injection 2 Or More Injection Jordon Suresh M.D. 12/04/2019 Allergy Injection 2 Or More Injection Jordon Suresh M.D. 11/27/2019 Allergy Injection 2 Or More Injection Jordon Suresh M.D. 11/20/2019 Allergy Injection 2 Or More Injection Jordon Suresh M.D. 11/13/2019 Allergy Injection 2 Or More Injection Jordon Suresh M.D. 11/06/2019 Allergy Injection 2 Or More Injection Jordon Suresh M.D. 10/29/2019 Allergy Injection 2 Or More Injection Jordon Suresh M.D. 10/22/2019 Allergy Injection 2 Or More Injection Jordon Surehs M.D. 10/16/2019 Allergy Injection 2 Or More Injection Jordon Suresh M.D. 10/10/2019 Allergy Injection 2 Or More Injection Jordon Suresh M.D. 10/02/2019 Allergy Injection 2 Or More Injection Jordon Suresh M.D. 09/25/2019 Allergy Injection 2 Or More Injection Jordon Suresh M.D. 09/18/2019 Allergy Injection 2 Or More Injection Jordon Suresh M.D. 09/11/2019 Allergy Injection 2 Or More Injection Jordon Suresh M.D. 09/04/2019 Allergy Injection 2 Or More Injection Jordon Suresh M.D. 08/28/2019 Allergy Injection 2 Or More Injection Jordon Suresh M.D. 08/21/2019 Allergy Injection 2 Or More Injection Jordon Suresh M.D. 08/14/2019 Allergy Injection 2 Or More Injection Jordon Suresh M.D. 08/07/2019 Allergy Injection 2 Or More Injection ISABELL Gibson 07/31/2019 Allergy Injection 2 Or More Injection Jordon Suresh M.D. 07/31/2019 Allergy Injection 2 Or More Injection ISABELL Gibson 07/24/2019 Allergy Injection 2 Or More Injection [...] Information Available Procedures Date Code Description Status 10/21/2020 50537 Allergy Injection 2 Or More Comp leted 09/30/2020 84163 Allergy Injection 2 Or More Comp leted 09/19/2020 45318 Allergy Antigens Single Or Multi ple Completed 09/11/2020 57653 Allergy Injection 2 Or More Comp leted 08/21/2020 69915 Allergy Injection 2 Or More Comp leted 07/31/2020 55806 Allergy Injection 2 Or More Comp leted 07/31/2020 40978 Allergy Injection 2 Or More Comp leted 07/10/2020 97624 Allergy Injection 2 Or More Comp leted 06/17/2020 77409 Allergy Injection 2 Or More Comp leted 05/29/2020 07958 Allergy Injection 2 Or More Comp leted 05/08/2020 18239 Allergy Injection 2 Or More Comp leted Medical Devices Description No Information Available Encounters Description No Information Available Assessments Date Code Description Provider 10/21/2020 J30.1 Allergic rhinitis due to pollen Jordon Suresh M.D. 10/21/2020 J30.89 Other allergic rhinitis Jordon Suresh M.D. Plan of Treatment Future Appointment(s):* 11/11/2020 9:40 am - Allergy Injection at Main Office * 03/10/2021 9:15 am - Jordon Suresh M.D. [...]
--- OUTSIDE RECORDS SUMMARY | 2020-12-23 11:47 | CCD ---
Author Author [facility] Organization [facility] Address Unknown Phone Unavailable Care Team Providers Care Corporate Legal Secretary Name Role Phone Xiao Ayon Unavailable PROBLEMS Type Condition ICD9-CM Code [id number] Code Onset Dates Condition S tatus W/U Status Risk SNOMED Code Notes Problem Low testosterone level in male E29.1 Active confir med 465949923 Problem S/P ablation of atrial fibrillation Z98.89 Active c onfirmed Problem KIKI on CPAP G47.33 Active confirmed 74844430 Problem Potential for heavy metal poisoning Z91.89 Acti ve confirmed 08119978 Problem Thyroid function test abnormal R94.6 Active confir med 163448895 Problem Atrial fibrillation I48.91 Active confirmed 63304443 converted to NSR, Eliquis d/c 4/18 by cardio Problem Personal history of other diseases of the circulatory syst em Z86.79 Active confirmed 273131006 Problem Chronic fatigue and malaise R53.82 Active confirmed 989403407 Problem Hypertensive heart disease without heart failure I 11.9 Active confirmed 26106109 Problem Allergic rhinitis, unspecified J30.9 Active confir med 66546082 Problem Vitamin D deficiency E55.9 Active confirmed 61365997 Problem Hypothyroidism, unspecified type E03.9 Active conf irmed 54709593 Problem Allergic rhinitis J30.9 Active confirmed 61 105479 Problem Allergic rhinitis, unspecifi ed allergic rhinitis trigger, unspecified rhinitis seasonality J30.9 Active confirmed 35132633 Problem Screening for prostate cancer Z12.5 Active confirm ed 208148183 Problem Other and unspecified hyperlipidemia E78.5 Act stephanie confirmed 02989688 Problem Acute atopic conjunctivitis, bilateral H10.13 A ctive confirmed 436904019 ALLERGIES No Known Allergies ENCOUNTERS from 1965 to 2020-12-10 Encounter Location Date Provider Diagnosis [facility] [address] [place] [address] Dec, Reg ruben Ayon Acute non-recurrent sinusitis, unspecified location J01.90 IMMUNIZATIONS No Information SOCIAL HISTORY Tobacco Use: [...] REASON FOR REFERRAL No Information VITAL SIGNS Weight 194 lbs Dec, Height 5'6" in Dec, BMI 31.31 kg/m2 Dec, Heart Rate 87 /min Dec, Respiratory Rate 18 /min Dec, Temperature 97.5 degrees Fahrenheit Dec, Oximetry 95 Dec, Blood pressure systolic 130 mm Hg Dec, Blood pressure diastolic 74 mm Hg Dec, MEDICATIONS Medication SIG (Take, Route, Frequency, Duration) [...] Orally Daily Active PROCEDURES No Information RESULTS Component Value Reference Range Coronavirus 2019 Nasopharygeal (Send Out ) COVID Reviewed date:12/09/2020 08:17:36 Interpretation: Performing Lab:[facility], [facility] [address] [facility] [address] , ,[place] [address] CORONAVIRUS 2019 NASOPHARYGEAL This nucleic acid ampli fication test was developed and its CORONAVIRUS 2019 NASOPHARYGEAL performance characteris tics determined by [facility] CORONAVIRUS 2019 NASOPHARYGEAL Laboratories. Nucleic a jesús amplification tests include RT- CORONAVIRUS 2019 NASOPHARYGEAL PCR and TMA. This test has not been FDA cleared or CORONAVIRUS 2019 NASOPHARYGEAL approved. This test has been authorized by FDA under an CORONAVIRUS 2019 NASOPHARYGEAL Emergency Use Authoriza tion (EUA). This test is only CORONAVIRUS 2019 NASOPHARYGEAL authorized for the dura tion of time the declaration that CORONAVIRUS 2019 NASOPHARYGEAL circumstances exist jus tifying the authorization of the CORONAVIRUS 2019 NASOPHARYGEAL emergency use of in vit ro diagnostic tests for detection of CORONAVIRUS 2019 NASOPHARYGEAL SARS-CoV-2 virus and/or diagnosis of COVID-19 infection CORONAVIRUS 2019 NASOPHARYGEAL under section 564(b)(1) of the Act, 21 U.S.C. 360bbb-3(b) CORONAVIRUS 2019 NASOPHARYGEAL (1), unless the authori zation is terminated or revoked CORONAVIRUS 2019 NASOPHARYGEAL sooner. CORONAVIRUS 2019 NASOPHARYGEAL When diagnostic testing is negative, the possibility of a CORONAVIRUS 2019 NASOPHARYGEAL false negative result s hould be considered in the context CORONAVIRUS 2019 NASOPHARYGEAL of a patient's recent e xposures and the presence of CORONAVIRUS 2019 NASOPHARYGEAL clinical signs and symp toms consistent with COVID-19. An CORONAVIRUS 2019 NASOPHARYGEAL individual without symp toms of COVID-19 and who is not CORONAVIRUS 2019 NASOPHARYGEAL shedding SARS-CoV-2 vir us would expect to have a negative CORONAVIRUS 2019 NASOPHARYGEAL (not detected) result in this assay. CORONAVIRUS 2019 NASOPHARYGEAL Performed at: [facility] CORONAVIRUS 2019 NASOPHARYGEAL [address], [place], [place] [id number] CORONAVIRUS 2019 NASOPHARYGEAL Shaker Operator: Loly Schaeffer PhD, Phone: [phone] CORONAVIRUS 2019 NASOPHARYGEAL CORONAVIRUS 2019 NASOPHARYGEAL Not Detected CORONAVIRUS 2019 NASOPHARYGEAL REASON FOR VISIT Pt is c/o sinus pain,sinus congestion,post nasal drip x 3 days [id number] MEDICAL (GENERAL) HISTORY Type Description Date Medical History at [facility], failed ablation-- [facility] Sorenson (limited records). Converted NSR, taken off Eliquis by cardio 02/15, started aspirin Medical History chronic fatigue Medical History ? hypothyroidism-- saw endoc rine 03/15, nl TFTs off TRT, felt to be euthyroid; nl TFT 10/16 Medical History hypogonadism- saw endo 03/15, offered tx/ declined Medical History contaminated well 2015, saw carrot buncher TRINIDAD 05/15, felt to be w/o evidence of poisoning Medical History all rhinitis Medical History KIKI, on nasal CPAP Medical History TIA Medical History HTN Medical History Vit D defic-- resolved 09/19 Medical History hyperlipidemia-10 yr ASCVD risk 3.7% () Surgical History cardiac ablation Dr Delta ABDI 03/08/15 Surgical History colonoscopy--tubular adenoma (fragments) 01/16 Hospitalization History at [facility]-- [facility] 10/13/15 Goals Section No Information Health Concerns No Information MEDICAL EQUIPMENT No Information MENTAL STATUS No Information FUNCTIONAL STATUS No Information ASSESSMENTS Encounter Date Diagnosis Assessment Notes Treatment Notes Treatm ent Clinical Notes Dec, Acute non-recurrent sinusiti s, unspecified location (ICD-10 - J01.90) viral infection, no indication for antibiotics. Symptomatic tx only at this point. Discussed indications for reevaluation. handout given on supportive care Initiate saline rinses - info givne. Start abx if symptoms worsen or persist PLAN OF TREATMENT Medication Medication Name Sig Start Date Stop Date Amoxicillin 875 MG 1 tablet Orally every 12 hrs for 10 days 2020 Treatment Notes Assessment Notes Clinical Notes Acute non-recurrent sinusitis, unspecified location viral infection, no indication for antibiotics. Symptomatic tx only at this point. Discussed indications for reevaluation. handout given on supportive careInitiate saline rinses - info givne. Start abx if symptoms worsen or persist Treatment Notes Test Name Order Date [place] (Point of Care) 2020-12-04 Next Appt Details prn Reason: Provider Name:Katie Harvey, 02:30:00 PM, [address] [facility], [address] Floor, [place], [address], Insurance Providers Payer Name Payer Address Payer Phone Insured Name Patient Relati onship to Insured Coverage Start Date Coverage End Date [facility] [place] [facility] [phone] [facility] [place] [id number] ESTEVAN OLSEN self
--- OUTSIDE RECORDS SUMMARY | 2020-12-23 11:47 | CCD ---
Author Author [facility] Organization [facility] Address Unknown Phone Unavailable Care Team Providers Care Autoglazier Name Role Phone Katie Harvey Unavailable PROBLEMS Type Condition ICD9-CM Code [id number] Code Onset Dates Condition S tatus SNOMED Code Notes Problem Low testosterone level in male E29.1 Active 1 39765241 Problem S/P ablation of atrial fibrillation Z98.89 Acti ve Problem KIKI on CPAP G47.33 Active 92541114 Problem Potential for heavy metal poisoning Z91.89 Acti ve 35307924 Problem Thyroid function test abnormal R94.6 Active 3 21593370 Problem Atrial fibrillation I48.91 Active 93662110 con verted to Erum ARTEAGA d/c 02/15 by cardio Problem Personal history of other diseases of the circulatory syst em Z86.79 Active 835830844 Problem Chronic fatigue and malaise R53.82 Active 2717 49993 Problem Hypertensive heart disease without heart failure I 11.9 Active 58243109 Problem Allergic rhinitis, unspecified J30.9 Active 6 9836307 Problem Vitamin D deficiency E55.9 Active 34716373 Problem Hypothyroidism, unspecified type E03.9 Active 83938317 Problem Allergic rhinitis J30.9 Active 22691183 Problem Allergic rhinitis, unspecifi ed allergic rhinitis trigger, unspecified rhinitis seasonality J30.9 Active 89851860 Problem Screening for prostate cancer Z12.5 Active 24 8184197 Problem Other and unspecified hyperlipidemia E78.5 Act stephanie 30716388 Problem Acute atopic conjunctivitis, bilateral H10.13 A ctive [id number] ALLERGIES No Known Allergies ENCOUNTERS from 1967 to 2020-11-19 Encounter Location Date Provider Diagnosis [facility] Dermatology [address] [address] Oct, Katie Gamingsarbjit Onychomycosis B35.1 IMMUNIZATIONS No Information SOCIAL HISTORY Tobacco Use: [...] 1 capsule Orally twice a week Active Levothyroxine Sodium 50 MCG 1 tablet in the morning on an empty stomach Orally Once a day for 30 Active Metoprolol Tartrate 50 MG 1 tablet with food Orally Daily Active Flonase Allergy Relief 50 MCG/ACT 1 spray in each nost ril Nasally Once a day for 30 day(s) Not-Taking Diflucan 150 MG 1 tablet Orally Once a week for 30 days Apr, Active Diflucan 150 MG 1 tablet Orally once weekly as instructed for 30 days Aug, Active Aspir-81 81 MG 2 tablet Orally Once a day Active PROCEDURES No Information RESULTS No Results REASON FOR VISIT NEW SCRIPT MEDICAL (GENERAL) HISTORY Type Description Date Medical History at [facility], failed ablation-- fo [facility] cardio Dr Sorenson (limited records). Converted NSR, taken off Eliquis by cardio 02/15, started aspirin Medical History chronic fatigue Medical History ? hypothyroidism-- saw endoc rine 03/15, nl TFTs off TRT, felt to be euthyroid; nl TFT 10/16 Medical History hypogonadism- saw endo 03/15, offered tx/ declined Medical History contaminated well 2015, saw economic developer TRINIDAD 05/15, felt to be w/o evidence of poisoning Medical History all rhinitis Medical History KIKI, on nasal CPAP Medical History TIA Medical History HTN Medical History Vit D defic-- resolved 09/19 Medical History hyperlipidemia-10 yr ASCVD risk 3.7% () Surgical History cardiac ablation Dr Delta ABDI 03/08/15 Surgical History colonoscopy--tubular adenoma (fragments) 01/16 Hospitalization History at [facility]-- [facility] 10/13/15 Goals Section No Information Health Concerns No Information MEDICAL EQUIPMENT No Information MENTAL STATUS No Information FUNCTIONAL STATUS No Information ASSESSMENTS Encounter Date Diagnosis Assessment Notes Treatment Notes Treatm ent Clinical Notes Oct, Onychomycosis (ICD-10 - B35.1) PLAN OF TREATMENT Medication Medication Name Sig Start Date Stop Date Diflucan 150 MG 1 tablet Orally once weekly as instructe d for 30 days Aug, Vitamin D 125 MCG (5000 UT) 1 capsule Orally twice a week Levothyroxine Sodium 50 MCG 1 tablet in the morning on an empty stomach Orally Once a day for 30 Metoprolol Tartrate 50 MG 1 tablet with food Orally Daily Aspir-81 81 MG 2 tablet Orally Once a day Next Appt Details Provider Name:Katie Harvey, 11:15:00 AM, [facility] [place], [address], Insurance Providers Payer Name Payer Address Payer Phone Insured Name Patient Relati onship to Insured Coverage Start Date Coverage End Date [facility] [phone] [facility] [employer] [facility] [id number] ESTEVAN OLSEN self
--- OUTSIDE RECORDS SUMMARY | 2020-12-23 11:47 | CCD ---
Author Author [facility] Organization [facility] Address Unknown Phone Unavailable Care Team Providers Care Clerk Guide Name Role Phone Katie Harvey Unavailable PROBLEMS Type Condition ICD9-CM Code [id number] Code Onset Dates Condition S tatus SNOMED Code Notes Problem Low testosterone level in male E29.1 Active 1 24850135 Problem S/P ablation of atrial fibrillation Z98.89 Acti ve Problem KIKI on CPAP G47.33 Active 60426177 Problem Potential for heavy metal poisoning Z91.89 Acti ve 10384224 Problem Thyroid function test abnormal R94.6 Active 3 91176495 Problem Atrial fibrillation I48.91 Active 43988876 con verted to Erum ARTEAGA d/c 02/15 by cardio Problem Personal history of other diseases of the circulatory syst em Z86.79 Active 281121001 Problem Chronic fatigue and malaise R53.82 Active 2717 19180 Problem Hypertensive heart disease without heart failure I 11.9 Active 60627870 Problem Allergic rhinitis, unspecified J30.9 Active 6 3824147 Problem Vitamin D deficiency E55.9 Active 20235356 Problem Hypothyroidism, unspecified type E03.9 Active 16961402 Problem Allergic rhinitis J30.9 Active 34765135 Problem Allergic rhinitis, unspecifi ed allergic rhinitis trigger, unspecified rhinitis seasonality J30.9 Active 23923297 Problem Screening for prostate cancer Z12.5 Active 24 4345073 Problem Other and unspecified hyperlipidemia E78.5 Act stephanie 08019142 Problem Acute atopic conjunctivitis, bilateral H10.13 A ctive 548980208 ALLERGIES No Known Allergies ENCOUNTERS from 1967 to 2020-10-21 Encounter Location Date Provider Diagnosis [facility] Dermatology [address] [address] Sep, Katie Harvey Onychomycosis B35.1 IMMUNIZATIONS No Information SOCIAL HISTORY [...] an empty stomach Orally Once a day Active Aspir-81 81 MG 2 tablet Orally Once a day Active Flonase Allergy Relief 50 MCG/ACT 1 [...] Information RESULTS No Results REASON FOR VISIT REFILL MEDICAL (GENERAL) HISTORY Type Description Date Medical History at [facility], failed ablation-- fo [place] cardio Dr Sorenson (limited records). Converted NSR, taken off Eliquis by cardio 02/15, started aspirin Medical History chronic fatigue Medical History ? hypothyroidism-- saw endoc rine 03/15, nl TFTs off TRT, felt to be euthyroid; nl TFT 10/16 Medical History hypogonadism- saw endo 03/15, offered tx/ declined Medical History contaminated well 2015, saw piped pocket machine operator TRINIDAD 05/15, felt to be w/o evidence of poisoning Medical History all rhinitis Medical History KIKI, on nasal CPAP Medical History TIA Medical History HTN Medical History Vit D defic-- resolved 09/19 Medical History hyperlipidemia-10 yr ASCVD risk 3.7% () Surgical History cardiac ablation Dr Delta ABDI 03/08/15 Surgical History colonoscopy--tubular adenoma (fragments) 01/16 Hospitalization History at [facility]-- [facility] 10/13/15 Goals Section No Information Health Concerns No Information MEDICAL EQUIPMENT No Information MENTAL STATUS No Information FUNCTIONAL STATUS No Information ASSESSMENTS Encounter Date Diagnosis Assessment Notes Treatment Notes Treatm ent Clinical Notes Sep, Onychomycosis (ICD-10 - B35.1) PLAN OF TREATMENT Medication Medication Name Sig Start Date Stop Date Metoprolol Tartrate 50 MG 1 tablet with food Orally Daily Vitamin D 125 MCG (5000 UT) 1 capsule Orally twice a week Levothyroxine Sodium 50 MCG 1 tablet in the morning on an empty stomach Orally Once a day Aspir-81 81 MG 2 tablet Orally Once a day Diflucan 150 MG 1 tablet Orally once weekly as instructe d for 30 days Aug, Next Appt Details Provider Name:Katie Harvey, 11:15:00 AM, [address], [address], [place], [address], Insurance Providers Payer Name Payer Address Payer Phone Insured Name Patient Relati onship to Insured Coverage Start Date Coverage End Date [facility] [phone] [facility] [place] [address] ESTEVAN OLSEN self
--- OUTSIDE RECORDS SUMMARY | 2020-12-23 11:47 | CCD | Continuity of Care Document ---
Author Author Dyllan [facility] Organization Unknown Address [address] [place] [address], [address] [place] [address] Phone [phone] Care Team Providers Care Layer Out Name Role Phone Aron Ayon M.D. AUTM [phone] Problems Active Problems Provider Date Deviated nasal septum Edward Albrecht MD Onset: 10/02/2015 Dysfunction of eustachian tube Edwrad Albrecht MD Onset: Other specified disorders of Eustachian tube, bilateral Hermelindo as Brayden OTERO PA-C Onset: 03/18/2016 Atrial fibrillation Shavonne Maria, A.N.P. Onset: 2014 Disturbance of consciousness Shavonne Maria A.N.P. Onse t: 09/11/2015 Obstructive sleep apnea syndrome Shavonne Maria, A.N.P. Onset: 09/11/2015 Social History Type Date Description Comments Sex Unknown ETOH Use Denies alcohol use Tobacco Use Start: Unknown Patient has never smoked Smoking Status Reviewed: 04/17/20 Patient has never smoked Allergies, Adverse Reactions, Alerts Active Allergies Reaction Severity Comments Date NKDA 06/26/2018 Dust Mites 06/11/2015 Mold 06/11/2015 Pollen 06/26/2018 Medications Active Medications SIG Qnty Indications Ordering Provide r Date Clenpiq 10-3.5-12mg-GM -GM/160ML S olution take as directed per doctor's bowel prep instructions. 320ml Z12.1 1 Aleks Duncan MD 10/09/2020 Milk Of Magnesia 1200mg/15ML Suspe nsion take 45 milliliters by mouth as directed on colonoscopy prep sheet. Z12.11 Aleks Duncan MD 10/09/2020 CPAP 12cm lcw Unknown Aspirin Adult Low Dose 81mg Tablet s DR 2 tabs by mouth every day Unknown 00 Levothyroxine Sodium 50mcg Tablets 1 tab by mouth every day 30tabs Unknown Metoprolol Succinate ER 50mg Tablets ER 24HR 1 tab by mouth everyday Unknown Vitamin D 2000Unit Tablets Take 1 tablet daily. Unknown Immunizations Description No Information Available Vital Signs Date Vital Result Comment 10/09/2020 11:01am BP Systolic 132 mmHg BP Diastolic 78 mmHg Height 67 inches 5'7" Weight 193.00 lb BMI (Body Mass Index) 30.2 kg/m2 [place] Body Weight 148 lb Weight 87.545 kg BSA (Body Surface Area) 1.99 m2 04/17/2020 8:27am BP Systolic 124 mmHg BP Diastolic 72 mmHg Heart Rate 78 /min O2 % BldC Oximetry 97 % Room Air Body Temperature 96.7 F Height 67 inches 5'7" Weight 191.00 lb BMI (Body Mass Index) 29.9 kg/m2 [place] Body Weight 148 lb Weight 86.638 kg BSA (Body Surface Area) 1.98 m2 Results Description No Information Available Procedures Description No Information Available Medical Devices Description No Information Available Encounters Type Date Location Provider Dx Diagnosis Office Visit 04/17/2020 8:30a [facility] Lawrenc jazmín Hull MD G47.33 Obstructive sleep apnea (adult) (pediatr ic) J30.9 Allergic rhinitis, unspecifi ed Assessments Date Code Description Provider 10/09/2020 Z12.11 Encounter for screening for jan gnant neoplasm of colon Batool Damon RPA-Jean 10/09/2020 Z86.010 Personal history of colonic poly ps Batool Damon RPA-C 04/17/2020 G47.33 Obstructive sleep apnea (adult) (pediatric) Rusty Hull MD 04/17/2020 J30.9 Allergic rhinitis, unspecified L evert Hull MD Plan of Treatment 10/09/2020 - WENCESLAO Kirk* Z12.11 Encounter for screening for malignant neoplasm of colon * Z86.010 Personal history of colonic polyps * * New Medication:* Clenpiq 10-3.5-12 mg-GM -GM/160ML * Milk Of Magnesia 1200 mg/15ML * New Orders:* Colonoscopy, Ordered: 10/09/20 * Comments:* Will arrange for colonoscopy. Reviewed risks and benefits of the procedure, as well as other options, with the patient. Bowel prep procedure was discussed with patient, as well as risks and side effects associated with the bowel prep. Patient verbalized understanding of all of the above and is in agreement to proceed. Patient will seek medical attention for any acute changes. Will monitor. * Follow up:* As scheduled, sooner if needed. Functional Status Description No Information Available Mental Status Description No Information Available Referrals Description No Information Available
--- OUTSIDE RECORDS SUMMARY | 2020-12-23 11:47 | CCD | Continuity of Care Document ---
Author Author Dyllan SURESH Organization Unknown Address [address], [place] [address] Phone [phone] Care Team Providers Care Supervisor Ticket Sales Name Role Phone Aron Ayon MD AUTM [phone] Problems Active Problems Provider Date Allergic rhinitis [...] a day for congestion 90ml J30.0 Jordon Surseh M.D. 07/10/2020 Flonase Allergy Relief 50mcg/Act Suspension [...] 11/27/2019 Allergy Injection 2 Or More Injection Camila Perla.Allyssa 11/20/2019 Allergy Injection 2 Or More Injection Jordon Suresh M.D. 11/13/2019 Allergy Injection 2 Or More Injection Camila Perla.Allyssa 11/06/2019 Allergy Injection 2 Or More Injection Camila Perla.Allyssa 10/29/2019 Allergy Injection 2 Or More Injection Jordon Suresh M.D. 10/22/2019 Allergy Injection 2 Or More Injection Camila Perla.Allyssa 10/16/2019 Allergy Injection 2 Or More Injection Jordon Suresh M.D. 10/10/2019 Allergy Injection 2 Or More Injection Jordon Suresh M.D. 10/02/2019 Allergy Injection 2 Or More Injection Camila Perla.Allyssa 09/25/2019 Allergy Injection 2 Or More Injection Jordon Suresh M.D. 09/18/2019 Allergy Injection 2 Or More Injection Jordon Suresh M.D. 09/11/2019 Allergy Injection 2 Or More Injection Camila Perla.Allyssa 09/04/2019 Allergy Injection 2 Or More Injection Jordon Suresh M.D. 08/28/2019 Allergy Injection 2 Or More Injection Jordon Suresh M.D. 08/21/2019 Allergy Injection 2 Or More Injection Camila Perla.Allyssa 08/14/2019 Allergy Injection 2 Or More Injection [...] Information Available Procedures Date Code Description Status 11/11/2020 49127 Allergy Injection 2 Or More Comp leted 10/21/2020 16234 Allergy Injection 2 Or More Comp leted 09/30/2020 95141 Allergy Injection 2 Or More Comp leted 09/19/2020 77130 Allergy Antigens Single Or Multi ple Completed 09/11/2020 67094 Allergy Injection 2 Or More Comp leted 08/21/2020 52527 Allergy Injection 2 Or More Comp leted 07/31/2020 06033 Allergy Injection 2 Or More Comp leted 07/31/2020 92242 Allergy Injection 2 Or More Comp leted 07/10/2020 05015 Allergy Injection 2 Or More Comp leted 06/17/2020 35275 Allergy Injection 2 Or More Comp leted 05/29/2020 31632 Allergy Injection 2 Or More Comp leted Medical Devices Description No Information Available Encounters Description No Information Available Assessments Date Code Description Provider 11/11/2020 J30.1 Allergic rhinitis due to pollen Jordon Suresh M.D. 11/11/2020 J30.89 Other allergic rhinitis Jordon Suresh M.D. Plan of Treatment Future Appointment(s):* 12/02/2020 9:10 am - Allergy Injection at Main Office [...]
--- OUTSIDE RECORDS SUMMARY | 2020-12-23 11:48 | CCD ---
Author Author [facility] Organization [facility] Address Unknown Phone Unavailable Care Team Providers Care Electrophysiology Scientist Name Role Phone Noreen, L Chelsie SUPERVISOR [employer]ICE STORE Unavailable Unavailable [place], L Chelsie SUPERVISOR SEL[employer] SERVICE STORE Unavailable Unavailable [place], L Chelsie SUPERVISOR SELF SERVICE STORE Unavailable Unavailable Noreen, L Chelsie SUPERVISOR SELF SERVICE STORE Unavailable Unavailable Noreen, L Chelsie SUPERVISOR SELF SERVICE STORE Unavailable Unavailable [place], L Chelsie SUPERVISOR SELF SERVICE STORE Unavailable Unavailable Noreen, L Chelsie SUPERVISOR SELF SERVICE STORE Unavailable Unavailable [place], L Chelsie SUPERVISOR SELF SERVICE STORE Unavailable Unavailable [place], L Chelsie SUPERVISOR SELF SERVICE STORE Unavailable Unavailable [place], L Chelsie SUPERVISOR SELF SERVICE STORE Unavailable Unavailable [place], L Chelsie SUPERVISOR SELF SERVICE STORE Unavailable Unavailable Noreen, L Chelsie SUPERVISOR SELF SERVICE STORE Unavailable Unavailable [place], L Chelsie SUPERVISOR SELF SERVICE STORE Unavailable Unavailable Noreen, L Chelsei SUPERVISOR SELF SERVICE STORE Unavailable Unavailable Noreen, L Chelsie SUPERVISOR SELF SERVICE STORE Unavailable Unavailable [place], L Chelsie SUPERVISOR SELF SERVICE STORE Unavailable Unavailable [place], L Chelsie SUPERVISOR SELF SERVICE STORE Unavailable Unavailable [place], L Chelsie SUPERVISOR SELF SERVICE STORE Unavailable Unavailable [place], L Chelsie SUPERVISOR SELF SERVICE STORE Unavailable Unavailable [place], L Chelsie SUPERVISOR SELF SERVICE STORE Unavailable Unavailable Noreen, L Chelsie SUPERVISOR SELF SERVICE STORE Unavailable Unavailable Noreen, L Chelsie SUPERVISOR SEL[facility] SERVICE STORE Unavailable Unavailable Noreen, L Chelsie SUPERVISOR SELF SERVICE STORE Unavailable Unavailable [place], L Chelsie SUPERVISOR SELF SERVICE STORE Unavailable Unavailable Noreen, L Chelsie SUPERVISOR SELF SERVICE STORE Unavailable Unavailable [place], L Chelsie SUPERVISOR SELF SERVICE STORE Unavailable Unavailable [place], L Chelsie SUPERVISOR SELF SERVICE STORE Unavailable Unavailable Noreen, L Chelsie SUPERVISOR SELF SERVICE STORE Unavailable Unavailable Noreen, L Chelsie SUPERVISOR SELF SERVICE STORE Unavailable Unavailable [place], L Chelsie SUPERVISOR SELF SERVICE STORE Unavailable Unavailable Noreen, L Chelsie SUPERVISOR SELF SERVICE STORE Unavailable Unavailable [place], L Chelsie SUPERVISOR SELF SERVICE STORE Unavailable Unavailable [place], L Chelsie SUPERVISOR SELF SERVICE STORE Unavailable Unavailable Eren Hull MD Unavailable Unavailable Eren Hull MD Unavailable Unavailable Eren Hull MD Unavailable Unavailable Eren Hull MD Unavailable Unavailable Eren Hull MD Unavailable Unavailable Eren Hull MD Unavailable Unavailable Eren Hull MD Unavailable Unavailable Eren Hull MD Unavailable Unavailable Eren Hull MD Unavailable Unavailable Eren Hull MD Unavailable Unavailable Eren Hull MD Unavailable Unavailable Eren Hull MD Unavailable Unavailable Eren Hull MD Unavailable Unavailable Eren Hull MD Unavailable Unavailable Eren Hull MD Unavailable Unavailable Eren Hull MD Unavailable Unavailable Eren Hull MD Unavailable Unavailable Eren Hull MD Unavailable Unavailable Eren Hull MD Unavailable Unavailable Eren Hull MD Unavailable Unavailable Eren Hull MD Unavailable Unavailable Eren Hull MD Unavailable Unavailable Eren Hull MD Unavailable Unavailable Eren Hull MD Unavailable Unavailable Eren Hull MD Unavailable Unavailable Eren Hull MD Unavailable Unavailable Eren Hull MD Unavailable Unavailable Eren Hull MD Unavailable Unavailable Eren Hull MD Unavailable Unavailable Eren Hull MD Unavailable Unavailable Eren Hull MD Unavailable Unavailable Eren Hull MD Unavailable Unavailable Eren Hull MD Unavailable Unavailable Eren Hull MD Unavailable Unavailable Eren Hull MD Unavailable Unavailable Eren Hull MD Unavailable Unavailable Eren Hull MD Unavailable Unavailable Eren Hull MD Unavailable Unavailable Eren Hull MD Unavailable Unavailable Eren Hull MD Unavailable Unavailable Eren Hull MD Unavailable Unavailable Eren Hull MD Unavailable Unavailable Eren Hull MD Unavailable Unavailable Eren Hull MD Unavailable Unavailable Eren Hull MD Unavailable Unavailable Eren Hull MD Unavailable Unavailable Eren Hull MD Unavailable Unavailable Eren Hull MD Unavailable Unavailable Eren Hull MD Unavailable Unavailable Eren Hull MD Unavailable Unavailable Eren Hull MD Unavailable Unavailable Re-disclosure Warning The records that you are about to access may contain information from federally-assisted alcohol or drug abuse programs. If such information is present, then the following federally mandated warning applies: This information has been disclosed to you from records protected by federal confidentiality rules (42 CFR part 2). The federal rules prohibit you from making any further disclosure of this information unless further disclosure is expressly permitted by the written consent of the person to whom it pertains or as otherwise permitted by 42 CFR part 2. A general authorization for the release of medical or other information is NOT sufficient for this purpose. The Federal rules restrict any use of the information to criminally investigate or prosecute any alcohol or drug abuse patient.The records that you are about to access may contain highly sensitive health information, the redisclosure of which is protected by Article 27-F of the [facility] Public Health law. If you continue you may have access to information: Regarding HIV / AIDS; Provided by facilities licensed or operated by the [facility] Office of Mental Health; or Provided by the [facility] Office for People With Developmental Disabilities. If such information is present, then the following [facility] mandated warning applies: This information has been disclosed to you from confidential records which are protected by state law. State law prohibits you from making any further disclosure of this information without the specific written consent of the person to whom it pertains, or as otherwise permitted by law. Any unauthorized further disclosure in violation of state law may result in a fine or intermediate sentence or both. A general authorization for the release of medical or other information is NOT sufficient authorization for further disc losure. Family History Family Member Name Family Member Gender Family Member Status Date o f Status Description Data Source(s) Unknown Unknown Problem MEDENT ([facility]) Encounters Encounter Providers Location Date Indications Data Source(s ) [place] [address] [facility] [address] 12/16/2020 12:00:00 AM EST eCW1 ([facility]) Outpatient [address] [facility] [address] 12/04/2020 12:00:00 AM EST eCW1 ([facility]) [place] [address] [facility] [address] 12/04/2020 12:00:00 AM EST eCW1 ([facility]) [place] [address] [facility] [address] 11/17/2020 12:00:00 AM EST eCW1 ([facility]) [place] [address] [facility] [address] 11/17/2020 12:00:00 AM EST eCW1 ([facility]) [place] [address] [facility] [address] 10/21/2020 12:00:00 AM EST eCW1 ([facility]) [place] [address] [facility] [address] 09/11/2020 12:00:00 AM EST eCW1 ([facility]) [place] [address] [facility] [address] 09/09/2020 12:00:00 AM EST eCW1 ([facility]) [place] [address] [facility] [address] 09/05/2020 12:00:00 AM EST eCW1 ([facility]) [place] [address] [facility] [address] 09/05/2020 12:00:00 AM EST eCW1 ([facility]) [place] [address] [facility] [address] 08/25/2020 12:00:00 AM EDT eCW1 ([facility]) [place] [address] [facility] [address] 08/25/2020 12:00:00 AM EDT eCW1 ([facility]) Unknown [address] [facility] [address] 08/18/2020 12:00:00 AM EDT eCW1 ([facility]) [place] [address] [facility] [address] 08/15/2020 12:00:00 AM EDT eCW1 ([facility]) [facility] Dermatology [address] [place] [phone] 06/19/2020 12:00:00 AM EDT eCW1 ([facility]) Unknown [address] [place] [address] 05/21/2020 12:00:00 AM EDT [facility] [address] [address] 05/06/2020 12:00:00 AM EDT [facility] Outpatient [address] [place] [phone] 05/01/2020 12:00:00 AM EDT eCW1 [facility]) Outpatient Attender: Rusty Huang/Joseph/Ambrocio/Darrian blanca 04/17/2020 08:30:00 AM EDT MEDENT ([facility]) [address] [address] 03/18/2020 12:00:00 AM EDT eCW1 [facility]) Outpatient Attender: Chelsie COOLEY Main Office 03/06/2020 03:45:0 0 PM EDT MEDENT ([facility]) [address] [address] 01/10/2020 12:00:00 AM EDT eCW1 ([facility]) [address] [place] [address] 01/01/2020 12:00:00 AM EST eCW1 [facility]) [address] [place] [address] 11/28/2019 12:00:00 AM EST eCW1 ([facility]) [address] [address] 11/22/2019 12:00:00 AM EST [facility]CW[facility] [address] [facility] [address] 11/01/2019 12:00:00 AM EST eCW1 ([facility]) Medications Medication Brand Name Start Date Product Form Dose Route Admi nistrative Instructions Pharmacy Instructions Status Indications Reaction Description Data Source(s) 1-0.05 % 12/22/2020 12:00:00 AM EST cream 15 APPLY TWO TIMES A DAY FOR 5 DAYS APPLY TWO TIMES A DAY FOR 5 DAYS SOLD: 12/22/2020 [facility] Allergy Injection 2 Or More 12/22/2020 12:00:00 AM EST completed MEDENT ([facility]) Medication administered onsite 150 mg 12/16/2020 12:00:00 AM EST tablet 4 TAKE ONE TABLET BY MOUTH ONCE A WEEK TAKE ONE TABLET BY MOUTH ONCE A WEEK SOLD: 12/17/2020 [facility] 875 mg 12/05/2020 12:00:00 AM EST tablet 20 TAKE ONE TABLET BY MOUTH EVERY 12 HOURS TAKE ONE TABLET BY MOUTH EVERY 12 HOURS SOLD: 12/05/2020 [facility] Amoxicillin 875 MG Oral Tablet Amoxicillin 875 MG 12/05/2020 12:00: 00 AM EST 1.0 {tablet} active Amoxicillin 875 MG eCW1 ([facility]) Amoxicillin 875 MG Oral Tablet Amoxicillin 875 MG 12/05/2020 12:00: 00 AM EST 1.0 {tablet} active Amoxicillin 875 MG eCW1 ([facility]) Amoxicillin 875 MG Oral Tablet Amoxicillin 875 MG 12/05/2020 12:00: 00 AM EST 1.0 {tablet} active Amoxicillin 875 MG eCW1 ([facility]) Allergy Injection 2 Or More 12/03/2020 12:00:00 AM EST completed MED[facility] ([facility]) Medication administered onsite 150 mg 11/19/2020 12:00:00 AM EST tablet 4 TAKE ONE TABLET BY MOUTH ONCE WEEKLY DIRECTED TAKE ONE TABLET BY MOUTH ONCE WEEKLY DIRECTED SOLD: 11/19/2020 [facility] 50 mcg 11/18/2020 12:00:00 AM EST tablet 30 TAKE ONE TABLET BY MOUTH EVERY MORNING ON AN EMPTY STOMACH TAKE ONE TABLET BY MOUTH EVERY MORNING O N AN EMPTY STOMACH SOLD: 12/17/2020 [facility] 50 mcg 11/18/2020 12:00:00 AM EST tablet 30 TAKE ONE TABLET BY MOUTH EVERY MORNING ON AN EMPTY STOMACH TAKE ONE TABLET BY MOUTH EVERY MORNING O N AN EMPTY STOMACH SOLD: 11/18/2020 [facility] Allergy Injection 2 Or More 11/11/2020 12:00:00 AM EST completed MED[facility] ([facility]) Medication administered onsite Allergy Injection 2 Or More 10/21/2020 12:00:00 AM EST completed [facility] ([facility]) Medication administered onsite 150 mg 10/21/2020 12:00:00 AM EST tablet 4 TAKE ONE TABLET BY MOUTH EVERY WEEK DIRECTED TAKE ONE TABLET BY MOUTH EVERY WEEK DIRECTED SOLD: 10/23/2020 [facility] 10 mg-3.5 gram -12 gram/160 mL 10/09/2020 12:00:00 AM EST so lution 320 TAKE DIRECTED PER [employer] PREP INSTRUCTIONS TAKE DIRECTED PER [employer] PREP INSTRUCTIONS SOLD: 10/18/2020 [facility] Magnesium Hydroxide 80 MG/ML Oral Suspension Milk Of Magnesi a 10/09/2020 12:00:00 AM EST ORAL active M EDENT ([facility] ) Clenpiq Clenpiq 10/09/2020 12:00:00 AM EST active MEDENT ([facility] ) Allergy Injection 2 Or More 09/30/2020 12:00:00 AM EST completed MED[facility] ([facility]) Medication administered onsite 150 mg 09/20/2020 12:00:00 AM EST tablet 4 TAKE 1 TABLET BY MOUTH ONCE A WEEK TAKE 1 TABLET BY MOUTH ONCE A WEEK SOLD: 09/21/2020 [facility] Allergy Injection 2 Or More 09/11/2020 12:00:00 AM EST completed [facility] ([facility]) Medication administered onsite Fluconazole 150 MG Oral Tablet [Diflucan] Diflucan 150 MG Di flucan 150 MG 09/05/2020 12:00:00 AM EST 1.0 {tablet} active Diflucan 150 MG eCW1 ([facility]) Fluconazole 150 MG Oral Tablet [Diflucan] Diflucan 150 MG Di flucan 150 MG 09/05/2020 12:00:00 AM EST 1.0 {tablet} active Diflucan 150 MG eCW1 ([facility]) Fluconazole 150 MG Oral Tablet [Diflucan] Diflucan 150 MG Di flucan 150 MG 09/05/2020 12:00:00 AM EST 1.0 {tablet} active Diflucan 150 MG eCW1 ([facility]) Fluconazole 150 MG Oral Tablet [Diflucan] Diflucan 150 MG Di flucan 150 MG 09/05/2020 12:00:00 AM EST 1.0 {tablet} active Diflucan 150 MG eCW1 ([facility]) Fluconazole 150 MG Oral Tablet [Diflucan] Diflucan 150 MG Di flucan 150 MG 09/05/2020 12:00:00 AM EST 1.0 {tablet} active Diflucan 150 MG eCW1 ([facility]) Fluconazole 150 MG Oral Tablet [Diflucan] Diflucan 150 MG Di flucan 150 MG 09/05/2020 12:00:00 AM EST 1.0 {tablet} active Diflucan 150 MG eCW1 ([facility]) Fluconazole 150 MG Oral Tablet [Diflucan] Diflucan 150 MG Di flucan 150 MG 09/05/2020 12:00:00 AM EST 1.0 {tablet} active Diflucan 150 MG eCW1 ([facility]) 150 mg 08/25/2020 12:00:00 AM EDT tablet 4 TAKE ONE TABLET BY MOUTH ONCE A WEEK TAKE ONE TABLET BY MOUTH ONCE A WEEK SOLD: 2020 [facility] Allergy Injection 2 Or More 08/21/2020 12:00:00 AM EDT completed MEDENT ([facility]) Medication administered onsite 50 mg 08/16/2020 12:00:00 AM EDT tablet extended release 24 hr 30 TAKE ONE TABLET BY MOUTH EVERY DAY TAKE ONE TABLET BY MOUTH EVERY DAY SOLD: 10/26/2020 [facility] 50 mg 08/16/2020 12:00:00 AM EDT tablet extended release 24 hr 30 TAKE ONE TABLET BY MOUTH EVERY DAY TAKE ONE TABLET BY MOUTH EVERY DAY SOLD: 11/24/2020 [facility] 50 mg 08/16/2020 12:00:00 AM EDT tablet extended release 24 hr 30 TAKE ONE TABLET BY MOUTH EVERY DAY TAKE ONE TABLET BY MOUTH EVERY DAY SOLD: 08/19/2020 [facility] 50 mg 08/16/2020 12:00:00 AM EDT tablet extended release 24 hr 30 TAKE ONE TABLET BY MOUTH EVERY DAY TAKE ONE TABLET BY MOUTH EVERY DAY SOLD: 09/24/2020 [facility] levocetirizine dihydrochloride 5 MG Oral Tablet Levocetirizi ne Dihydrochloride 08/13/2020 12:00:00 AM EDT active MEDENT ([facility]) Allergy Injection 2 Or More 07/31/2020 12:00:00 AM EDT completed MED[facility] ([facility]) Medication administered onsite Allergy Injection 2 Or More 07/31/2020 12:00:00 AM EDT completed MED[facility] ([facility]) Medication administered onsite Azelastine hydrochloride 0.206 MG/ACTUAT Metered Dose Nasal [place] 0.15 % (205.5 mcg) AZELASTINE HCL 07/11/2020 12:00:00 AM EDT spray,non-aerosol 30 SPRAY 2 SPRAYS IN EACH NOSTRIL TWO TIMES A DAY SPRAY 2 SPRAYS IN EACH NOSTRIL TWO TIMES A DAY SOLD: 07/14/2020 [facility] Allergy Injection 2 Or More 07/10/2020 12:00:00 AM EDT completed MED[facility] ([facility]) Medication administered onsite Azelastine HCL (Nasal) Azelastine HCL (Nasal) 07/10/2020 12:00:00 AM E DT active [facility] ([facility]) Allergy Injection 2 Or More 06/17/2020 12:00:00 AM EDT completed MEDENT ([facility]) Medication administered onsite Allergy Injection 2 Or More 05/29/2020 12:00:00 AM EDT completed MEDENT ([facility]) Medication administered onsite 50 mcg 05/22/2020 12:00:00 AM EDT tablet 30 TAKE 1 TABLET BY MOUTH ONCE DAILY IN THE MORNING ON EMPTY STOMACH TAKE 1 TABLET BY MOUTH ONCE DAILY IN THE MORNING ON EMPTY STOMACH SOLD: 06/21/2020 [facility] 50 mcg 05/22/2020 12:00:00 AM EDT tablet 30 TAKE 1 TABLET BY MOUTH ONCE DAILY IN THE MORNING ON EMPTY STOMACH TAKE 1 TABLET BY MOUTH ONCE DAILY IN THE MORNING ON EMPTY STOMACH SOLD: 07/21/2020 [facility] 50 mcg 05/22/2020 12:00:00 AM EDT tablet 30 TAKE 1 TABLET BY MOUTH ONCE DAILY IN THE MORNING ON EMPTY STOMACH TAKE 1 TABLET BY MOUTH ONCE DAILY IN THE MORNING ON EMPTY STOMACH SOLD: 08/19/2020 [facility] 50 mcg 05/22/2020 12:00:00 AM EDT tablet 30 TAKE 1 TABLET BY MOUTH ONCE DAILY IN THE MORNING ON EMPTY STOMACH TAKE 1 TABLET BY MOUTH ONCE DAILY IN THE MORNING ON EMPTY STOMACH SOLD: 05/22/2020 [facility] 50 mcg 05/22/2020 12:00:00 AM EDT tablet 30 TAKE 1 TABLET BY MOUTH ONCE DAILY IN THE MORNING ON EMPTY STOMACH TAKE 1 TABLET BY MOUTH ONCE DAILY IN THE MORNING ON EMPTY STOMACH SOLD: 10/18/2020 [facility] 50 mcg 05/22/2020 12:00:00 AM EDT tablet 30 TAKE 1 TABLET BY MOUTH ONCE DAILY IN THE MORNING ON EMPTY STOMACH TAKE 1 TABLET BY MOUTH ONCE DAILY IN THE MORNING ON EMPTY STOMACH SOLD: 09/18/2020 [facility] 150 mg 05/08/2020 12:00:00 AM EDT tablet 4 TAKE ONE TABLET BY MOUTH ONCE WEEKLY TAKE ONE TABLET BY MOUTH ONCE WEEKLY SOLD: 06/30/2020 [facility] 150 mg 05/08/2020 12:00:00 AM EDT tablet 4 TAKE ONE TABLET BY MOUTH ONCE WEEKLY TAKE ONE TABLET BY MOUTH ONCE WEEKLY SOLD: 06/05/2020 [facility] 150 mg 05/08/2020 12:00:00 AM EDT tablet 4 TAKE ONE TABLET BY MOUTH ONCE WEEKLY TAKE ONE TABLET BY MOUTH ONCE WEEKLY SOLD: 05/09/2020 [facility] 150 mg 05/08/2020 12:00:00 AM EDT tablet 4 TAKE ONE TABLET BY MOUTH ONCE WEEKLY TAKE ONE TABLET BY MOUTH ONCE WEEKLY SOLD: 07/29/2020 [facility] Allergy Injection 2 Or More 05/08/2020 12:00:00 AM EDT completed MEDENT ([facility]) Medication administered onsite Fluconazole 150 MG Oral Tablet [Diflucan] Diflucan 150 MG Di flucan 150 MG 05/07/2020 12:00:00 AM EDT 1.0 {tablet} active Diflucan 150 MG W1 ([facility]) Fluconazole 150 MG Oral Tablet [Diflucan] Diflucan 150 MG Di flucan 150 MG 05/07/2020 12:00:00 AM EDT 1.0 {tablet} active Diflucan 150 MG eCW1 ([facility]) Fluconazole 150 MG Oral Tablet [Diflucan] Diflucan 150 MG Di flucan 150 MG 05/07/2020 12:00:00 AM EDT 1.0 {tablet} active Diflucan 150 MG eCW1 ([facility]) Fluconazole 150 MG Oral Tablet [Diflucan] Diflucan 150 MG Di flucan 150 MG 05/07/2020 12:00:00 AM EDT 1.0 {tablet} active Diflucan 150 MG eCW1 ([facility]) Fluconazole 150 MG Oral Tablet [Diflucan] Diflucan 150 MG Di flucan 150 MG 05/07/2020 12:00:00 AM EDT 1.0 {tablet} active Diflucan 150 MG eCW1 ([facility]) Fluconazole 150 MG Oral Tablet [Diflucan] Diflucan 150 MG Di flucan 150 MG 05/07/2020 12:00:00 AM EDT 1.0 {tablet} active Diflucan 150 MG eCW1 ([facility]) Fluconazole 150 MG Oral Tablet [Diflucan] Diflucan 150 MG Di flucan 150 MG 05/07/2020 12:00:00 AM EDT 1.0 {tablet} active Diflucan 150 MG eCW1 ([facility]) Fluconazole 150 MG Oral Tablet [Diflucan] Diflucan 150 MG Di flucan 150 MG 05/07/2020 12:00:00 AM EDT 1.0 {tablet} active Diflucan 150 MG eCW1 ([facility]) Fluconazole 150 MG Oral Tablet [Diflucan] Diflucan 150 MG Di flucan 150 MG 05/07/2020 12:00:00 AM EDT 1.0 {tablet} active Diflucan 150 MG eCW1 ([facility]) Fluconazole 150 MG Oral Tablet [Diflucan] Diflucan 150 MG Di flucan 150 MG 05/07/2020 12:00:00 AM EDT 1.0 {tablet} active Diflucan 150 MG eCW1 ([facility]) Fluconazole 150 MG Oral Tablet [Diflucan] Diflucan 150 MG Di flucan 150 MG 05/07/2020 12:00:00 AM EDT 1.0 {tablet} active Diflucan 150 MG eCW1 ([facility]) Fluconazole 150 MG Oral Tablet [Diflucan] Diflucan 150 MG Di flucan 150 MG 05/07/2020 12:00:00 AM EDT 1.0 {tablet} active Diflucan 150 MG eCW1 ([facility]) Fluconazole 150 MG Oral Tablet [Diflucan] Diflucan 150 MG Di flucan 150 MG 05/07/2020 12:00:00 AM EDT 1.0 {tablet} active Diflucan 150 MG eCW1 ([facility]) Fluconazole 150 MG Oral Tablet [Diflucan] Diflucan 150 MG Di flucan 150 MG 05/07/2020 12:00:00 AM EDT 1.0 {tablet} active Diflucan 150 MG eCW1 ([facility]) Fluconazole 150 MG Oral Tablet [Diflucan] Diflucan 150 MG Di flucan 150 MG 05/07/2020 12:00:00 AM EDT 1.0 {tablet} active Diflucan 150 MG eCW1 ([facility]) Fluconazole 150 MG Oral Tablet [Diflucan] Diflucan 150 MG Di flucan 150 MG 05/07/2020 12:00:00 AM EDT 1.0 {tablet} active Diflucan 150 MG eCW1 ([facility]) Allergy Injection 2 Or More 04/17/2020 12:00:00 AM EDT completed MED[facility] ([facility]) Medication administered onsite Allergy Injection 2 Or More 03/27/2020 12:00:00 AM EDT completed MED[facility] ([facility]) Medication administered onsite Flonase Allergy Relief Flonase Allergy Relief 03/06/2020 12:00:00 AM E DT active [facility] ([facility] 50 mcg/actuation 03/06/2020 12:00:00 AM EDT spray,suspension 16 SPRAY TWO SPRAYS IN EACH NOSTRIL DAILY FOR CONGESTION SPRAY TWO SPRAYS IN EACH NOSTRIL DAILY FOR CONGESTION SOLD: 04/06/2020 [facility] 50 mcg/actuation 03/06/2020 12:00:00 AM EDT spray,suspension 16 SPRAY TWO SPRAYS IN EACH NOSTRIL DAILY FOR CONGESTION SPRAY TWO SPRAYS IN EACH NOSTRIL DAILY FOR CONGESTION SOLD: 03/06/2020 [facility] Allergy Injection 2 Or More 03/05/2020 12:00:00 AM EDT completed MEDENT ([facility]) Medication administered onsite 81 mg 03/01/2020 12:00:00 AM EDT tablet,delayed release (DR/EC) 60 TAKE TWO TABLETS BY MOUTH EVERY DAY TAKE TWO TABLETS BY MOUTH EVERY DAY SOLD: 10/30/2020 [facility] 81 mg 03/01/2020 12:00:00 AM EDT tablet,delayed release (DR/EC) 60 TAKE TWO TABLETS BY MOUTH EVERY DAY TAKE TWO TABLETS BY MOUTH EVERY DAY SOLD: 06/02/2020 [facility] 81 mg 03/01/2020 12:00:00 AM EDT tablet,delayed release (DR/EC) 60 TAKE TWO TABLETS BY MOUTH EVERY DAY TAKE TWO TABLETS BY MOUTH EVERY DAY SOLD: 03/30/2020 [facility] 81 mg 03/01/2020 12:00:00 AM EDT tablet,delayed release (DR/EC) 60 TAKE TWO TABLETS BY MOUTH EVERY DAY TAKE TWO TABLETS BY MOUTH EVERY DAY SOLD: 11/29/2020 [facility] 81 mg 03/01/2020 12:00:00 AM EDT tablet,delayed release (DR/EC) 60 TAKE TWO TABLETS BY MOUTH EVERY DAY TAKE TWO TABLETS BY MOUTH EVERY DAY SOLD: 04/29/2020 [facility] 81 mg 03/01/2020 12:00:00 AM EDT tablet,delayed release (DR/EC) 60 TAKE TWO TABLETS BY MOUTH EVERY DAY TAKE TWO TABLETS BY MOUTH EVERY DAY SOLD: 07/02/2020 [facility] 81 mg 03/01/2020 12:00:00 AM EDT tablet,delayed release (DR/EC) 60 TAKE TWO TABLETS BY MOUTH EVERY DAY TAKE TWO TABLETS BY MOUTH EVERY DAY SOLD: 03/01/2020 [facility] 81 mg 03/01/2020 12:00:00 AM EDT tablet,delayed release (DR/EC) 60 TAKE TWO TABLETS BY MOUTH EVERY DAY TAKE TWO TABLETS BY MOUTH EVERY DAY SOLD: 09/01/2020 [facility] 81 mg 03/01/2020 12:00:00 AM EDT tablet,delayed release (DR/EC) 60 TAKE TWO TABLETS BY MOUTH EVERY DAY TAKE TWO TABLETS BY MOUTH EVERY DAY SOLD: 10/01/2020 [facility] 81 mg 03/01/2020 12:00:00 AM EDT tablet,delayed release (DR/EC) 60 TAKE TWO TABLETS BY MOUTH EVERY DAY TAKE TWO TABLETS BY MOUTH EVERY DAY SOLD: 08/01/2020 [facility] Allergy Injection 2 Or More 02/14/2020 12:00:00 AM EDT completed [facility] ([facility] Medication administered onsite Allergy Injection 2 Or More 01/24/2020 12:00:00 AM EDT completed [facility] ([facility] Medication administered onsite Allergy Injection 2 Or More 01/01/2020 12:00:00 AM EST completed [facility] ([facility] Medication administered onsite Allergy Injection 2 Or More 12/18/2019 12:00:00 AM EST completed [facility] ([facility] Medication administered onsite Allergy Injection 2 Or More 12/11/2019 12:00:00 AM EST completed [facility] ([facility] Medication administered onsite Allergy Injection 2 Or More 12/04/2019 12:00:00 AM EST completed [facility] ([facility] Medication administered onsite Allergy Injection 2 Or More 11/27/2019 12:00:00 AM EST completed [facility] ([facility] Medication administered onsite Levothyroxine Sodium 0.05 MG Oral Tablet Levothyroxine Sodium 50 MCG Levothyroxine Sodium 50 MCG 11/22/2019 12:00:00 AM EST active 1 tablet in the morning on an empty stomach eCW1 ([facility]) 50 mcg 11/22/2019 12:00:00 AM EST tablet 30 TAKE ONE TABLET BY MOUTH EVERY MORNING ON EMPTY STOMACH TAKE ONE TABLET BY MOUTH EVERY MORNING O N EMPTY STOMACH SOLD: 02/20/2020 [facility] 50 mcg 11/22/2019 12:00:00 AM EST tablet 30 TAKE ONE TABLET BY MOUTH EVERY MORNING ON EMPTY STOMACH TAKE ONE TABLET BY MOUTH EVERY MORNING O N EMPTY STOMACH SOLD: 12/20/2019 [facility] Levothyroxine Sodium 0.05 MG Oral Tablet Levothyroxine Sodium 50 MCG Levothyroxine Sodium 50 MCG 11/22/2019 12:00:00 AM EST active 1 tablet in the morning on an empty stomach eCW1 ([facility]) 50 mcg 11/22/2019 12:00:00 AM EST tablet 30 TAKE ONE TABLET BY MOUTH EVERY MORNING ON EMPTY STOMACH TAKE ONE TABLET BY MOUTH EVERY MORNING O N EMPTY STOMACH SOLD: 04/21/2020 [facility] Levothyroxine Sodium 0.05 MG Oral Tablet Levothyroxine Sodium 50 MCG Levothyroxine Sodium 50 MCG 11/22/2019 12:00:00 AM EST active 1 tablet in the morning on an empty stomach eCW1 ([facility]) 50 mcg 11/22/2019 12:00:00 AM EST tablet 30 TAKE ONE TABLET BY MOUTH EVERY MORNING ON EMPTY STOMACH TAKE ONE TABLET BY MOUTH EVERY MORNING O N EMPTY STOMACH SOLD: 11/22/2019 [facility] 50 mcg 11/22/2019 12:00:00 AM EST tablet 30 TAKE ONE TABLET BY MOUTH EVERY MORNING ON EMPTY STOMACH TAKE ONE TABLET BY MOUTH EVERY MORNING O N EMPTY STOMACH SOLD: 03/21/2020 [facility] 50 mcg 11/22/2019 12:00:00 AM EST tablet 30 TAKE ONE TABLET BY MOUTH EVERY MORNING ON EMPTY STOMACH TAKE ONE TABLET BY MOUTH EVERY MORNING O N EMPTY STOMACH SOLD: 01/18/2020 [facility] Levothyroxine Sodium 0.05 MG Oral Tablet Levothyroxine Sodium 50 MCG Levothyroxine Sodium 50 MCG 11/22/2019 12:00:00 AM EST active Levothyroxine Sodium 50 MCG eCW1 ([facility]) Allergy Injection 2 Or More 11/20/2019 12:00:00 AM EST completed [facility] ([facility] Medication administered onsite Allergy Injection 2 Or More 11/13/2019 12:00:00 AM EST completed [facility] ([facility] Medication administered onsite Allergy Injection 2 Or More 11/06/2019 12:00:00 AM EST completed [facility] ([facility]) Medication administered onsite Allergy Injection 2 Or More 10/29/2019 12:00:00 AM EST completed [facility] ([facility] Medication administered onsite 25 mg 08/21/2019 12:00:00 AM EDT tablet extended release 24 hr 30 TAKE ONE TABLET BY MOUTH EVERY DAY TAKE ONE TABLET BY MOUTH EVERY DAY SOLD: 08/09/2020 [facility] 25 mg 08/21/2019 12:00:00 AM EDT tablet extended release 24 hr 30 TAKE ONE TABLET BY MOUTH EVERY DAY TAKE ONE TABLET BY MOUTH EVERY DAY SOLD: 06/08/2020 [facility] 25 mg 08/21/2019 12:00:00 AM EDT tablet extended release 24 hr 30 TAKE ONE TABLET BY MOUTH EVERY DAY TAKE ONE TABLET BY MOUTH EVERY DAY SOLD: 04/08/2020 [facility] 25 mg 08/21/2019 12:00:00 AM EDT tablet extended release 24 hr 30 TAKE ONE TABLET BY MOUTH EVERY DAY TAKE ONE TABLET BY MOUTH EVERY DAY SOLD: 02/07/2020 [facility] 25 mg 08/21/2019 12:00:00 AM EDT tablet extended release 24 hr 30 TAKE ONE TABLET BY MOUTH EVERY DAY TAKE ONE TABLET BY MOUTH EVERY DAY SOLD: 03/09/2020 [facility] 25 mg 08/21/2019 12:00:00 AM EDT tablet extended release 24 hr 30 TAKE ONE TABLET BY MOUTH EVERY DAY TAKE ONE TABLET BY MOUTH EVERY DAY SOLD: 05/08/2020 [facility] 25 mg 08/21/2019 12:00:00 AM EDT tablet extended release 24 hr 30 TAKE ONE TABLET BY MOUTH EVERY DAY TAKE ONE TABLET BY MOUTH EVERY DAY SOLD: 07/08/2020 [facility] 10 mg 04/24/2019 12:00:00 AM EDT tablet 30 TAKE ONE TABLET BY MOUTH EVERY DAY TAKE ONE TABLET BY MOUTH EVERY DAY SOLD: 01/18/2020 [facility] 10 mg 04/24/2019 12:00:00 AM EDT tablet 30 TAKE ONE TABLET BY MOUTH EVERY DAY TAKE ONE TABLET BY MOUTH EVERY DAY SOLD: 11/01/2019 [facility] 81 mg 02/08/2019 12:00:00 AM EDT tablet,delayed release (DR/EC) 60 TAKE TWO TABLETS BY MOUTH EVERY DAY TAKE TWO TABLETS BY MOUTH EVERY DAY SOLD: 11/16/2019 [facility] 81 mg 02/08/2019 12:00:00 AM EDT tablet,delayed release (DR/EC) 60 TAKE TWO TABLETS BY MOUTH EVERY DAY TAKE TWO TABLETS BY MOUTH EVERY DAY SOLD: 01/15/2020 [facility] 81 mg 02/08/2019 12:00:00 AM EDT tablet,delayed release (DR/EC) 60 TAKE TWO TABLETS BY MOUTH EVERY DAY TAKE TWO TABLETS BY MOUTH EVERY DAY SOLD: 12/16/2019 [facility] 81 mg 02/08/2019 12:00:00 AM EDT tablet,delayed release (DR/EC) 60 TAKE TWO TABLETS BY MOUTH EVERY DAY TAKE TWO TABLETS BY MOUTH EVERY DAY SOLD: 01/31/2020 [facility] Insurance Providers Payer name Policy type / Coverage type Policy ID Covered green party ID 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 Policy Barber Plan Information [place] [facility] 302/[id number] SP [id number] [place] 302/307 [id number] SP [id number] [place] 302/307 [id number] SP [id number] [facility] [place] [id number] Self [id number] ANSI-Commercial [id number] ANSI-Commercial [id number] [facility] [id number] Blue Cross/Blue Shield [id number] [facility] [place] [id number] Self [id number] ANSI-Commercial [id number] [facility] [id number] Self [id number] ANSI-Commercial [id number] ANSI-Commercial [id number] [facility] [id number] Self [id number] ANSI-Commercial [id number] [facility] (HMO) [id number] Self [id number] ANSI-Commercial [id number] ANSI-Commercial [id number] ANSI-Commercial [id number] ANSI-Commercial [id number] [place] P[place] 302/307 [id number] SP [id number] [facility] (HMO) [id number] Self [id number] [facility] (HMO) [id number] Self [id number] BCBS Ppo Commercial [id number] Self [id number] [place] 302/307 [id number] SP [id number] [place]PO 302/307 [id number] SP [id number] [place] 305/805 [id number] SP [id number] Blue Cross Blue Shield Commercial Self [employer] Blue Ppo Ufcw Commercial Self BLUE CROSS BLUE SHIELD-O/P [id number] BLUE CROSS O [id number] S [id number] Problems, Conditions, and Diagnoses Code Display Name Description Problem Type Effective Dates Data Source(s) J30.0 Vasomotor rhinitis Vasomotor rhinitis Problem 0 12:00:00 AM EDT [facility] ([facility]) [id number] Allergic rhinitis due to house dust mite Allergic rhinitis due to house dust mite Problem 07/09/2020 12:00:00 AM EDT [facility] ([facility]) Note: On IT. 3+ reaction to dust mite on intradermal test completed in 2019. E03.9 [id number] Hypothyroidism, unspecified type Problem 11/22/2019 12:00:00 AM EST eCW1 ([facility]) E03.9 [id number] Hypothyroidism, unspecified type Problem 11/22/2019 12:00:00 AM EST eCW1 ([facility]) Surgeries/Procedures Procedure Description Date Indications Data Source(s) PROF ARACELI GHOSH IMMNTX X W/PRV ALLGIC XTRCS NJXS 2020 12:00:00 AM EST [facility] ([facility]) PROF CHARLES ALLChaitanya IMMNTX X W/PRV ALLGIC XTRCS NJXS 2020 12:00:00 AM EST [facility] ([facility]) PROF ARACELI GHOSH IMMNTX X W/PRV ALLGIC XTRCS NJXS 2020 12:00:00 AM EST [facility] ([facility]) PROF ARACELI GHOSH IMMNTX X W/PRV ALLGIC XTRCS NJXS 2019 12:00:00 AM EST [facility] ([facility]) PROF ARACELI GHOSH IMMNTX X W/PRV ALLGIC XTRCS NJXS 2019 12:00:00 AM EST [facility] ([facility]) PREPJ& ALLERGEN IMMUNOTHERAPY 1/RN INTAKE ANTIGEN 09/19/2020 12:00:00 AM EST [facility] ([facility]) PROF SVCS ALLG IMMNTX X W/PRV ALLGIC XTRCS NJXS 2019 12:00:00 AM EST [facility] ([facility]) PROF SV ALLG IMMNTX X W/PRV ALLGIC XTRCS NJXS 2019 12:00:00 AM EDT [facility] ([facility]) PROF SV ALLG IMMNTX X W/PRV ALLGIC XTRCS NJXS 2019 12:00:00 AM EDT [facility] ([facility]) PROF SV ALLG IMMNTX X W/PRV ALLGIC XTRCS NJXS 2019 12:00:00 AM EDT [facility] ([facility]) PROF SV ALLG IMMNTX X W/PRV ALLGIC XTRCS NJXS 2019 12:00:00 AM EDT [facility] ([facility]) PROF [facility] ALLG IMMNTX X W/PRV ALLGIC XTRCS NJXS 2019 12:00:00 AM EDT [facility] ([facility]) PROF [facility] ALLG IMMNTX X W/PRV ALLGIC XTRCS NJXS 2019 12:00:00 AM EDT [facility] ([facility]) PROF HANNA ALLG IMMNTX X W/PRV ALLGIC XTRCS NJXS 2019 12:00:00 AM EDT [facility] ([facility]) INJECTION 1 TENDON SHEATH/LIGAMENT APONEUROSIS 2 020 12:00:00 AM EDT [facility] ([facility] ) X-Ray Elbow Ap & Lateral 2 Views 04/29/2020 12:00:00 A M EDT [facility] ([facility]) PROF [facility] ALLG IMMNTX X W/PRV ALLGIC XTRCS NJXS 2019 12:00:00 AM EDT [facility] ([facility]) PREPJ& ALLERGEN IMMUNOTHERAPY 1/RN INTAKE ANTIGEN 04/02/2020 12:00:00 AM EDT [facility] ([facility]) PROF ARACELI ALLG IMMNTX X W/PRV ALLGIC XTRCS NJXS 2019 12:00:00 AM EDT [facility] ([facility]) PROF [facility] ALLG IMMNTX X W/PRV ALLGIC XTRCS NJXS 2019 12:00:00 AM EDT [facility] ([facility]) PROF SV ALLG IMMNTX X W/PRV ALLGIC XTRCS NJXS 2019 12:00:00 AM EDT [facility] ([facility]) PROF [facility] ALLG IMMNTX X W/PRV ALLGIC XTRCS NJXS 2019 12:00:00 AM EDT [facility] ([facility]) PROF [facility] ALLG IMMNTX X W/PRV ALLGIC XTRCS NJXS 2019 12:00:00 AM EST [facility] ([facility]) PROF [facility] ALLG IMMNTX X W/PRV ALLGIC XTRCS NJXS 2019 12:00:00 AM EST [facility] ([facility]) PROF [facility] ALLG IMMNTX X W/PRV ALLGIC XTRCS NJXS 2019 12:00:00 AM EST [facility] ([facility]) PROF [facility] ALLG IMMNTX X W/PRV ALLGIC XTRCS NJXS 2019 12:00:00 AM EST [facility] ([facility]) PROF [facility] ALLG IMMNTX X W/PRV ALLGIC XTRCS NJXS 2019 12:00:00 AM EST [facility] ([facility]) PROF [facility] ALLG IMMNTX X W/PRV ALLGIC XTRCS NJXS 2019 12:00:00 AM EST [facility] ([facility]) PROF [facility] ALLG IMMNTX X W/PRV ALLGIC XTRCS NJXS 2019 12:00:00 AM EST [facility] ([facility]) PROF [facility] ALLG IMMNTX X W/PRV ALLGIC XTRCS NJXS 2019 12:00:00 AM EST [facility] ([facility]) PROF [facility] ALLG IMMNTX X W/PRV ALLGIC XTRCS NJXS 2018 12:00:00 AM EST [facility] ([facility] Results ID Date Data Source [id number] 12/19/2020 01:00:00 PM EST [facility] Name Value Range Interpretation Code Description Data Kym rce(s) Supporting Document(s) SARS coronavirus 2 RNA Not Detected [facility] [place] This lab was ordered by [facility] and reported by [facility]. ID Date Data Source [id number] 12/04/2020 01:52:00 PM EST [facility] Name Value Range Interpretation Code Description Data Kym rce(s) Supporting Document(s) SARS coronavirus 2 RNA Not Detected [facility] [place] This lab was ordered by [facility] and reported by [facility]. ID Date Data Source [id number] 12/04/2020 12:58:00 PM EST [facility] Name Value Range Interpretation Code Description Data Kym rce(s) Supporting Document(s) SARS COVID ANTIGEN NEGATIVE [facility] This lab was ordered by [facility] reported by [facility]. ID Date Data Source Coronavirus 2019 Nasopharygeal (Send Out) COVID 12/04/2020 1 2:00:00 AM EST eCW1 ([facility]) Name Value Range Interpretation Code Description Data Kym rce(s) Supporting Document(s) This nucleic acid amplification test was developed and its CORONAVIRUS 2019 NASOPHARYGEAL eCW1 ([facility]) ID Date Data Source Comprehensive Metabolic Profile (CMP) 09/08/2020 04:20:33 AM EST eCW1 ([facility]) Name Value Range Interpretation Code Description Data Kym rce(s) Supporting Document(s) 95 GLUCOSE, FASTING eCW1 ([facility]) 17 BLOOD UREA NITROGEN eCW1 ([facility]) 1.00 CREATININE FOR GFR eCW1 ([facility]) 141 SODIUM LEVEL eCW1 ([facility]) > 60.0 GLOMERULAR FILTRATION RATE eCW 1 ([facility]) 4.5 POTASSIUM SERUM eCW1 ([facility]) 107 CHLORIDE LEVEL eCW1 ([facility]) 22 AST/SGOT eCW1 ([facility]) 31 CARBON DIOXIDE LEVEL eCW1 ([facility]) 9.2 CALCIUM LEVEL eCW1 ([facility]) 0.7 BILIRUBIN,TOTAL eCW1 ([facility]) 7.0 TOTAL PROTEIN eCW1 ([facility]) 45 ALT/SGPT eCW1 ([facility]) 71 ALKALINE PHOSPHATASE eCW1 ([facility]) 1.2 ALBUMIN/GLOBULIN RATIO eCW1 ([facility]) 3.8 ALBUMIN eCW1 ([facility]) ID Date Data Source CBC - Complete Blood Count 09/08/2020 03:10:42 AM EST eCW1 ( [facility]) Name Value Range Interpretation Code Description Data Kym rce(s) Supporting Document(s) 5.8 WHITE BLOOD COUNT eCW1 ([facility]) 5.59 RED BLOOD COUNT eCW1 ([facility]) 16.3 HEMOGLOBIN eCW1 ([facility]placed by [facility]) 51.6 HEMATOCRIT eCW1 (Replaced by [facility]) 29.2 MEAN CORPUSCULAR HEMOGLOBIN eC W1 ([facility]) 92.3 MEAN CORPUSCULAR VOLUME eCW1 ( [facility]) 31.6 MEAN CORPUSCULAR HGB CONC eCW1 ([facility]) 183 PLATELET COUNT, AUTOMATED eCW1 ([facility]) 12.3 RED CELL DISTRIBUTION WIDTH eC W1 ([facility]) ID Date Data Source MERCURY LEVEL 01/10/2020 12:00:00 AM EDT eCW1 ([facility]) Name Value Range Interpretation Code Description Data Kym rce(s) Supporting Document(s) None Detected 0.0-14.9 MERCURY LEVEL eCW1 ([facility]) ID Date Data Source LEAD BLOOD ADULT 01/10/2020 12:00:00 AM EDT eCW1 ([facility]) Name Value Range Interpretation Code Description Data Kym rce(s) Supporting Document(s) <1 0-4 LEAD BLOOD ADULT eCW1 ([facility]) Procedure Social History Code Duration Value Status Description Data Source(s ) Smoking 12/04/2020 12:00:00 AM EST Never Smoker completed Never S moker eCW1 ([facility]) Smoking 12/04/2020 12:00:00 AM EST Never Smoker completed Never S moker eCW1 ([facility]) Smoking 12/04/2020 12:00:00 AM EST Never Smoker completed Never S moker eCW1 ([facility]) Smoking 09/11/2020 12:00:00 AM EST Never Smoker completed Never S moker eCW1 ([facility]) Smoking 09/11/2020 12:00:00 AM EST Never Smoker completed Never S moker eCW1 ([facility]) Smoking 09/11/2020 12:00:00 AM EST Never Smoker completed Never S moker eCW1 ([facility]) Smoking 09/11/2020 12:00:00 AM EST Never Smoker completed Never S moker eCW1 ([facility]) Smoking 09/11/2020 12:00:00 AM EST Never Smoker completed Never S moker eCW1 ([facility]) Smoking 09/05/2020 12:00:00 AM EST Never Smoker completed Never S moker eCW1 ([facility]) Smoking 09/05/2020 12:00:00 AM EST Never Smoker completed Never S moker eCW1 ([facility]) Smoking 07/10/2020 12:00:00 AM EDT Patient has never smoked co mpleted Patient has never smoked [facility] ([facility] ) Smoking 05/07/2020 12:00:00 AM EDT Never Smoker completed Never S moker eCW1 ([facility]) Smoking 05/07/2020 12:00:00 AM EDT Never Smoker completed Never S moker eCW1 ([facility]) Smoking 05/07/2020 12:00:00 AM EDT Never Smoker completed Never S moker eCW1 ([facility]) Smoking 05/07/2020 12:00:00 AM EDT Never Smoker completed Never S moker eCW1 ([facility]) Smoking 05/07/2020 12:00:00 AM EDT Never Smoker completed Never S moker eCW1 ([facility]) Smoking 05/07/2020 12:00:00 AM EDT Never Smoker completed Never S moker eCW1 ([facility]) Smoking 04/17/2020 12:00:00 AM EDT Patient has never smoked co mpleted Patient has never smoked MEDENT ([facility]) Vital Signs ID Date Data Source UNK Name Value Range Interpretation Code Description Data Source(s) Diastolic blood pressure 74 mm[Hg] 74 mm[Hg] eCW1 ([facility]) Systolic blood pressure 130 mm[Hg] 130 mm[Hg] e CW1 ([facility]) Body temperature 97.5 [degF] 97.5 [degF] eCW1 ( [facility]) Respiratory rate 18 /min 18 /min eCW1 ([facility]) Heart rate 87 /min 87 /min eCW1 ([facility]) Body mass index (BMI) [Ratio] 31.31 kg/m2 31.31 kg/m2 eCW1 ([facility]) Body height [in_i] eCW1 ([facility]) Body weight 194 [lb_av] 194 [lb_av] eCW1 ([facility]) Body surface area Derived from formula 1.99 m2 1.99 m2 [facility] Body weight 87.545 kg 87.545 kg [facility] ([facility]) [place] body weight 148 [lb_av] 148 [lb_av] MEDEN T ([facility]) Body mass index (BMI) [Ratio] 30.2 kg/m2 30.2 k g/m2 [facility] ([facility]) Body weight 193.00 [lb_av] 193.00 [lb_av] MEDEN T ([facility]) Body height 67 [in_i] 67 [in_i] [facility] ([facility]) 5'7" Diastolic blood pressure 78 mm[Hg] 78 mm[Hg] MEDENT ([facility]) Systolic blood pressure 132 mm[Hg] 132 mm[Hg] M EDENT ([facility], ) Diastolic blood pressure 86 mm[Hg] 86 mm[Hg] eCW1 ([facility]) Systolic blood pressure 144 mm[Hg] 144 mm[Hg] e CW1 ([facility]) Body temperature 96.9 [degF] 96.9 [degF] eCW1 ( [facility]) Respiratory rate 18 /min 18 /min eCW1 ([facility]) Heart rate 58 /min 58 /min eCW1 ([facility]) Body mass index (BMI) [Ratio] 31.31 kg/m2 31.31 kg/m2 eCW1 ([facility]) Body height [in_i] eCW1 ([facility]) Body weight 194 [lb_av] 194 [lb_av] eCW1 ([facility]) Diastolic blood pressure 76 mm[Hg] 76 mm[Hg] eCW1 ([facility]) Systolic blood pressure 126 mm[Hg] 126 mm[Hg] e CW1 ([facility]) Body mass index (BMI) [Ratio] 30.99 kg/m2 30.99 kg/m2 eCW1 ([facility]) Body height [in_i] eCW1 ([facility]) Body weight 192 [lb_av] 192 [lb_av] eCW1 ([facility]) Body mass index (BMI) [Ratio] 29.5 kg/m2 29.5 k g/m2 [facility] ([facility]) Diastolic blood pressure 77 mm[Hg] 77 mm[Hg] [facility] ([facility]) Systolic blood pressure 138 mm[Hg] 138 mm[Hg] M EDENT ([facility]) Respiratory rate 16 /min 16 /min [facility] ( [facility]) Heart rate 66 /min 66 /min [facility] ([facility] Body height 67 [in_i] 67 [in_i] [facility] ([facility]) 5'7" Body weight 188.50 [lb_av] 188.50 [lb_av] MEDEN T ([facility]) Diastolic blood pressure 78 mm[Hg] 78 mm[Hg] eCW1 ([facility]) Systolic blood pressure 138 mm[Hg] 138 mm[Hg] e CW1 ([facility]) Body temperature 97.6 [degF] 97.6 [degF] eCW1 ( [facility]) Respiratory rate 18 /min 18 /min eCW1 ([facility]) Heart rate 83 /min 83 /min eCW1 ([facility]) Body mass index (BMI) [Ratio] 31.31 kg/m2 31.31 kg/m2 eCW1 ([facility]) Body height [in_i] eCW1 ([facility]) Body weight 194 [lb_av] 194 [lb_av] eCW1 ([facility]) Body surface area Derived from formula 1.98 m2 1.98 m2 [facility] ([facility], ) Body weight 86.638 kg 86.638 kg [facility] ([facility]) [place] body weight 148 [lb_av] 148 [lb_av] MEDEN T ([facility]) Body mass index (BMI) [Ratio] 29.9 kg/m2 29.9 k g/m2 [facility] ([facility]) Body weight 191.00 [lb_av] 191.00 [lb_av] MEDEN T ([facility], ) Body height 67 [in_i] 67 [in_i] [facility] ([facility]) 5'7" Body temperature 96.7 [degF] 96.7 [degF] [facility] ([facility], ) Oxygen saturation in Arterial blood by Pulse oximetry 97 % 97 % [facility] ([facility]) Room Air Heart rate 78 /min 78 /min [facility] ([facility]) Diastolic blood pressure 72 mm[Hg] 72 mm[Hg] [facility] ([facility]) Systolic blood pressure 124 mm[Hg] 124 mm[Hg] M EDHEMANT ([facility]) Diastolic blood pressure 72 mm[Hg] 72 mm[Hg] eCW1 ([facility]) Systolic blood pressure 124 mm[Hg] 124 mm[Hg] e CW1 ([facility]) Body temperature 96.8 [degF] 96.8 [degF] eCW1 ( [facility]) Respiratory rate 18 /min 18 /min eCW1 ([facility]) Heart rate 71 /min 71 /min eCW1 ([facility]) Body mass index (BMI) [Ratio] 30.63 kg/m2 30.63 kg/m2 eCW1 ([facility]) Body height [in_us] eCW1 ([facility]) Body weight Measured 189.8 [lb_av] 189.8 [lb_av ] eCW1 ([facility]) Body mass index (BMI) [Ratio] 29.5 kg/m2 29.5 k g/m2 MEDENT ([facility]) Diastolic blood pressure 76 mm[Hg] 76 mm[Hg] [facility] ([facility]) Systolic blood pressure 154 mm[Hg] 154 mm[Hg] M EDENT ([facility] Respiratory rate 18 /min 18 /min [facility] ( [facility]) Heart rate 61 /min 61 /min [facility] ([facility] Body height 67 [in_i] 67 [in_i] [facility] ([facility] 5'7" Body weight 188.38 [lb_av] 188.38 [lb_av] MEDEN T ([facility]) Diastolic blood pressure 80 mm[Hg] 80 mm[Hg] eCW1 ([facility]) Systolic blood pressure 132 mm[Hg] 132 mm[Hg] e CW1 ([facility]) Body temperature 97.5 [degF] 97.5 [degF] eCW1 ( [facility]) Respiratory rate 18 /min 18 /min eCW1 ([facility]) Heart rate 85 /min 85 /min eCW1 ([facility]) Body mass index (BMI) [Ratio] 30.82 kg/m2 30.82 kg/m2 eCW1 ([facility]) Body height [in_us] eCW1 ([facility]) Body weight Measured 191 [lb_av] 191 [lb_av] eC W1 ([facility]) Diastolic blood pressure 70 mm[Hg] 70 mm[Hg] eCW1 ([facility]) Systolic blood pressure 128 mm[Hg] 128 mm[Hg] e CW1 ([facility]) Body temperature 97.1 [degF] 97.1 [degF] eCW1 ( [facility]) Respiratory rate 18 /min 18 /min eCW1 ([facility]) Heart rate 70 /min 70 /min eCW1 ([facility]) Body mass index (BMI) [Ratio] 30.02 kg/m2 30.02 kg/m2 eCW1 ([facility]) Body height [in_us] eCW1 ([facility]) Body weight Measured 186 [lb_av] 186 [lb_av] eC W1 ([facility]) Patient Treatment Plan of Care Planned Activity Planned Date Details Description Data Source (s) Amoxicillin 875 MG Oral Tablet 12/05/2020 12:00:00 AM EST eCW1 ([facility]) Amoxicillin 875 MG Oral Tablet 12/05/2020 12:00:00 AM EST eCW1 ([facility]) Amoxicillin 875 MG Oral Tablet 12/05/2020 12:00:00 AM EST eCW1 ([facility]) Fluconazole 150 MG Oral Tablet [Diflucan] 09/05/2020 12:00:00 AM ES T eCW1 ([facility]) Fluconazole 150 MG Oral Tablet [Diflucan] 09/05/2020 12:00:00 AM ES T eCW1 ([facility]) Fluconazole 150 MG Oral Tablet [Diflucan] 09/05/2020 12:00:00 AM ES T eCW1 ([facility]) Fluconazole 150 MG Oral Tablet [Diflucan] 09/05/2020 12:00:00 AM ES T eCW1 ([facility]) Fluconazole 150 MG Oral Tablet [Diflucan] 09/05/2020 12:00:00 AM ES T eCW1 ([facility]) Fluconazole 150 MG Oral Tablet [Diflucan] 05/07/2020 12:00:00 AM ED T eCW1 ([facility]) Fluconazole 150 MG Oral Tablet [Diflucan] 05/07/2020 12:00:00 AM ED T eCW1 ([facility]) Fluconazole 150 MG Oral Tablet [Diflucan] 05/07/2020 12:00:00 AM ED T eCW1 ([facility]) Fluconazole 150 MG Oral Tablet [Diflucan] 05/07/2020 12:00:00 AM ED T eCW1 ([facility]) Fluconazole 150 MG Oral Tablet [Diflucan] 05/07/2020 12:00:00 AM ED T eCW1 ([facility]) Fluconazole 150 MG Oral Tablet [Diflucan] 05/07/2020 12:00:00 AM ED T eCW1 ([facility]) Fluconazole 150 MG Oral Tablet [Diflucan] 05/07/2020 12:00:00 AM ED T eCW1 ([facility]) Fluconazole 150 MG Oral Tablet [Diflucan] 05/07/2020 12:00:00 AM ED T eCW1 ([facility]) Levothyroxine Sodium 0.05 MG Oral Tablet 11/22/2019 12:00:00 AM EST eCW1 ([facility])
[2020-12-23] MEDS ORDERED: LIDOCAINE 2% 100MG/5ML SDV (FOR ANES.) As Ordered ONE (14:20)
[2020-12-23] MEDS ORDERED: propofoL 500 MG/50 ML VIAL As Ordered ONE (14:20)
--- NOTE | 2020-12-23 14:40 | ROOR ---
Patient Name: Dyllan Cuevas Procedure Date: 12/23/2020 2:16 PM Date of : 1965 Age: 55 Room: [facility] Gender: Male Note Status: Finalized Procedure: Colonoscopy Indications: High risk colon cancer surveillance: Personal history of colonic polyps Providers: Aleks DUNCAN MD Referring MD: Aron Ayon MD Requesting Provider: Medicines: Monitored Anesthesia Care Complications: No immediate complications. Procedure: Pre-Anesthesia Assessment: - The heart rate, respiratory rate, oxygen saturations, blood pressure, adequacy of pulmonary ventilation, and response to care were monitored throughout the procedure. The Colonoscope was introduced through the anus and advanced to 10 cm into the ileum. The colonoscopy was performed without difficulty. The patient tolerated the procedure well. The quality of the bowel preparation was good. Findings: The perianal and digital rectal examinations were normal. A tattoo was seen in the mid ascending colon. A post-polypectomy scar was found at the tattoo site. There was no evidence of residual polyp tissue. Two sessile polyps were found in the proximal ascending colon and distal ascending colon. The polyps were 5 to 6 mm in size. These polyps were removed with a cold snare. Resection and retrieval were complete. The mucosa vascular pattern in the rectum and in the sigmoid colon was segmentally decreased. This was biopsied with a cold forceps for histology. Small Internal Hemorrhoids. The exam was otherwise without abnormality. Impression: - A tattoo was seen in the mid ascending colon. A post-polypectomy scar was found at the tattoo site. There was no evidence of residual polyp tissue. - Two 5 to 6 mm polyps in the proximal ascending colon and in the distal ascending colon, removed with a cold snare. Resected and retrieved. - Decreased mucosa vascular pattern in the rectum and in the sigmoid colon. Biopsied. - Small Internal Hemorrhoids. - The colon and terminal ileum examination is otherwise normal. Recommendation: - Repeat colonoscopy in 3 years for surveillance. Procedure Code(s): --- Professional --- 67241, Colonoscopy, flexible; with removal of tumor(s), polyp(s), or other lesion(s) by snare technique 01767, 59, Colonoscopy, flexible; with biopsy, single or multiple Diagnosis Code(s): --- Professional --- K63.5, Polyp of colon Z86.010, Personal history of colonic polyps CPT copyright 2019 [employer]. All rights reserved. The codes documented in this report are preliminary and upon retail agent review may be revised to meet current compliance requirements. Aleks Duncan MD Aleks DUNCAN MD 12/23/2020 2:39:54 PM Electronically signed by Aleks DUNCAN MD Number of Addenda: 0 Note Initiated On: 12/23/2020 2:16 PM Estimated Blood Loss: Estimated blood loss: none.
[2020-12-23 15:00] VITALS: BP 122/77
== END 2020-12-23 15:07 | disposition home or self-care (01) ==
LOC: M OPP 11:43
PROVIDERS: ATTEND Internal Medicine Gastroenterology
DX: Z12.11 Encounter for screening for malignant neoplasm of colon (principal); Z86.010 Personal history of colon polyps; D12.2 Benign neoplasm of ascending colon; K64.8 Other hemorrhoids; I48.91 Unspecified atrial fibrillation; I10 Essential (primary) hypertension; E03.9 Hypothyroidism, unspecified; G47.30 Sleep apnea, unspecified; Z79.82 Long term (current) use of aspirin; Z79.899 Other long term (current) drug therapy

== ENCOUNTER → 2021-03-03 | Outpatient (REF) | payer BC ==
[~2021-03-03] MED LIST changes: -NS 1,000 ML IV ONE
[2021-03-03 12:31] LABS: HEMATOCRIT 50.6 % (42.0-52.0); HEMOGLOBIN 16.3 g/dl (13.5-17.5); MEAN CORPUSCULAR HEMOGLOBIN 29.2 pg (27.0-33.0); MEAN CORPUSCULAR HGB CONC 32.2 g/dl (32.0-36.5); MEAN CORPUSCULAR VOLUME 90.5 fl (80.0-96.0); PLATELET COUNT, AUTOMATED 188 10^3/uL (150-450); RED BLOOD COUNT 5.59 10^6/uL (4.30-6.10); WHITE BLOOD COUNT 6.3 10^3/uL (4.0-10.0)
[2021-03-03 13:09] LABS: ALBUMIN 3.9 GM/DL (3.2-5.2); ALT/SGPT 41 U/L (12-78); BILIRUBIN,TOTAL 0.7 MG/DL (0.2-1.0); BLOOD UREA NITROGEN 18 MG/DL (7-18); CALCIUM LEVEL 9.4 MG/DL (8.5-10.1); CARBON DIOXIDE LEVEL 31 MEQ/L (21-32); CHLORIDE LEVEL 105 MEQ/L (98-107); CHOLESTEROL LEVEL 185 MG/DL (<200); CHOLESTEROL RISK RATIO 4.111 (<5); CREATININE FOR GFR 0.85 MG/DL (0.70-1.30); FREE T4 1.13 NG/DL (0.76-1.46); GLOMERULAR FILTRATION RATE > 60.0 (>56); GLUCOSE, FASTING 95 MG/DL (70-100); HDL CHOLESTEROL 45 MG/DL (>40); LDL CHOLESTEROL 129 MG/DL (<100); NON-HDL-C 140 MG/DL; POTASSIUM SERUM 4.3 MEQ/L (3.5-5.1); SODIUM LEVEL 140 MEQ/L (136-145); TOTAL PROTEIN 6.9 GM/DL (6.4-8.2); TRIGLYCERIDES LEVEL 53 MG/DL (<150)
== END ==
LOC: M SFHCADAM 08:13
PROVIDERS: ATTEND Family Medicine
DX: R53.82 Chronic fatigue, unspecified (principal); G47.33 Obstructive sleep apnea (adult) (pediatric); I11.9 Hypertensive heart disease without heart failure; E03.9 Hypothyroidism, unspecified; E78.5 Hyperlipidemia, unspecified; Z12.5 Encounter for screening for malignant neoplasm of prostate
CPT/HCPCS: 80053; 80061; 84439; 84443; 85027; G0103

== ENCOUNTER → 2021-03-12 | Outpatient (REF) | payer BC | LOC: M SFHCADAM 08:53 | PROVIDERS: ATTEND Family Medicine | DX: E55.9 Vitamin D deficiency, unspecified (principal) ==

== ENCOUNTER → 2021-07-27 | Outpatient (REF) | payer BC | LOC: M LAB REF 14:04 | PROVIDERS: ATTEND Physician Assistant | DX: B35.1 Tinea unguium (principal) ==

== ENCOUNTER → 2021-07-30 | Outpatient (REF) | payer BC ==
[2021-07-30 13:34] LABS: ALBUMIN 3.7 GM/DL (3.2-5.2); ALT/SGPT 39 U/L (12-78); BILIRUBIN,TOTAL 0.5 MG/DL (0.2-1.0); BLOOD UREA NITROGEN 23 MG/DL (7-18); CALCIUM LEVEL 8.8 MG/DL (8.5-10.1); CARBON DIOXIDE LEVEL 31 MEQ/L (21-32); CHLORIDE LEVEL 107 MEQ/L (98-107); FREE T4 0.95 NG/DL (0.76-1.46); GLOMERULAR FILTRATION RATE > 60.0 (>56); GLUCOSE, FASTING 95 MG/DL (70-100); POTASSIUM SERUM 4.7 MEQ/L (3.5-5.1); SODIUM LEVEL 139 MEQ/L (136-145); TOTAL 25(OH) VITAMIN D 52.1 NG/ML (30.0-100.0); TOTAL PROTEIN 6.7 GM/DL (6.4-8.2)
== END ==
LOC: M SFHCADAM 08:19
PROVIDERS: ATTEND Family Medicine
DX: I48.91 Unspecified atrial fibrillation (principal); R94.6 Abnormal results of thyroid function studies; E55.9 Vitamin D deficiency, unspecified

== ENCOUNTER 2021-09-17 07:53 | Emergency (ER) | payer BC ==
[~2021-09-17] VITALS: Ht 170.2 cm; Wt 84.1 kg
--- OUTSIDE RECORDS SUMMARY | 2021-09-17 07:59 | CCD | Continuity of Care Document ---
Author Author Dyllan SURESH Organization Unknown Address [address], [place] [address] Phone [phone] Care Team Providers Care Pulmonology Physician Name Role Phone Aron Ayon MD AUTM [phone] Problems Active Problems Provider Date Allergic rhinitis [...] Description Comments Sex Unknown Tobacco Use Reviewed: 05/14/21 Patient has never smoked Smoking Status Reviewed: 05/14/21 Patient has never smoked Allergies and adverse reactions Description No Known Drug Allergies Medications Active Medications SIG Qnty Indications Ordering Provide r Date Azelastine HCL (Nasal) 137mcg/[place] Solution 2 sprays each nostril up to twice a day 1units J30.0 Jordon Suresh M.D. 05/14/2021 Cetirizine HCL 10mg Tablets take 1 tablet (10 mg) by oral route once daily for 30 days 30tabs Chau Suresh M.D. Levothyroxine Sodium 100mcg Tablet s Take one half-tablet ( 50 mcg) by mouth once daily as directed Unknown SM Aspirin Adult Low Strength 81mg Tablets DR Unknown Metoprolol Succinate ER 50mg Tablets ER 24HR Take One Tablet By Mouth Every Day Unknow n Fluconazole 150mg Tablets Take 1 tablet once weekly Katie Harvey MPAS RPA-C Saline Mist [place] 0.65% Solution 1 spray each nostril three times a day as needed Unknown Medications Administered in Office Medication SIG Qnty Indications Ordering Provider Date Allergy Injection 2 Or More Injection Jordon Suresh M.D. 08/27/2021 Allergy Injection 2 Or More Injection Jordon Suresh M.D. 08/06/2021 Allergy Injection 2 Or More Injection Jordon Suresh M.D. 07/16/2021 Allergy Injection 2 Or More Injection Jordon Suresh M.D. 06/18/2021 Allergy Injection 2 Or More Injection Jordon Suresh M.D. 05/28/2021 Allergy Injection 2 Or More Injection Jordon Suresh M.D. 05/05/2021 Allergy Injection 2 Or More Injection Jordon Suresh M.D. 04/06/2021 Allergy Injection 2 Or More Injection Jordon Suresh M.D. 03/18/2021 Allergy Injection 2 Or More Injection Jordon Suresh M.D. 02/26/2021 Allergy Injection 2 Or More Injection Jordon Suresh M.D. 02/03/2021 Allergy Injection 2 Or More Injection Jordon Suresh M.D. 01/14/2021 Allergy Injection 2 Or More Injection Jordon [...] 11/27/2019 Allergy Injection 2 Or More Injection Jordongraeme Suresh M.D. 11/20/2019 Allergy Injection 2 Or More Injection Jordon Suresh M.D. 11/13/2019 Allergy Injection 2 Or More Injection Jordon Suresh M.D. 11/06/2019 Allergy Injection 2 Or More Injection JordonVee MarvinDMarie 10/29/2019 Allergy Injection 2 Or More Injection Jordon Suresh M.D. 10/22/2019 Allergy Injection 2 Or More Injection Jordon Suresh M.D. 10/16/2019 Allergy Injection 2 Or More [...] Available Vital Signs Date Vital Result Comment 05/14/2021 9:47am Weight 184.25 lb Height 67 inches 5'7" Heart Rate 74 /min Respiratory Rate 16 /min BP Systolic 125 mmHg BP Diastolic 69 mmHg BMI (Body Mass Index) 28.9 kg/m2 07/10/2020 3:52pm Weight 188.50 lb Height 67 inches 5'7" Heart Rate 66 /min Respiratory Rate 16 /min BP Systolic 138 mmHg BP Diastolic 77 mmHg BMI (Body Mass Index) 29.5 kg/m2 Results Description No Information Available Procedures Date Code Description Status 08/28/2021 40881 Allergy Antigens Single Or Multi ple Completed 08/27/2021 79672 Allergy Injection 2 Or More Comp leted 08/06/2021 25994 Allergy Injection 2 Or More Comp leted 07/16/2021 15723 Allergy Injection 2 Or More Comp leted 06/18/2021 67546 Allergy Injection 2 Or More Comp leted 05/28/2021 98270 Allergy Injection 2 Or More Comp leted 05/14/2021 19492 Office/Outpatient Established Mo d MDM 30-39 Min Completed 05/05/2021 98138 Allergy Injection 2 Or More Comp leted 04/06/2021 52435 Allergy Injection 2 Or More Comp leted 04/03/2021 32495 Allergy Antigens Single Or Multi ple Completed 03/18/2021 22343 Allergy Injection 2 Or More Comp leted Medical Devices Description No Information Available Encounters Type Date Location Provider Dx Diagnosis Office Visit 05/14/2021 9:45a Main Office Jordon Suresh M.D. J30.0 Vasomotor rhinitis J30.1 Allergic rhinitis due to brijesh kristy J30.89 Other allergic rhinitis Assessments Date Code Description Provider 08/28/2021 J30.1 Allergic rhinitis due to pollen Jordon Suresh M.D. 08/28/2021 J30.89 Other allergic rhinitis Jordon Suresh M.D. Plan of Treatment Future Appointment(s):* 09/17/2021 9:00 am - Allergy Injection at Main Office * 11/19/2021 8:45 am - Jordon Suresh M.D. at Main Office 05/14/2021 - Jordon Suresh M.D.* J30.0 Vasomotor rhinitis* New Medication:* Azelastine HCL (Nasal) 137 mcg/[place] - 2 sprays each nostril up to twice a day * Recommendations:* Poor response to IT suggests that we have significant nonallergic component to symptoms. Will try Astelin again x 4-6 weeks. If better that will reconfirm vasomotor rhinitis. If improvement is not optimal may consider to add Nexium for 4-6 weeks as a trial approach (silent reflux may be contributing). If not better with either treatment option may need to see ENT for evaluation to rule out structural or functional sinus issue. * J30.1 Allergic rhinitis due to pollen* Recommendations:* The patient should stay on immunotherapy as per protocol. Risks and benefits associated with allergy injections were reviewed. Because of severity of symptoms and significant nonallergic component to his symptoms I decided to start mr. Lisa garcia on Astelin. * J30.89 Other allergic rhinitis* Recommendations:* The patient should continue using nasal spray every night. The spray should be used consistently to be effective. See recommendations above. * All * Follow up:* 8 months. Sooner if needed. He will call us if not better with either Astelin or Nexium. Will decide on ENT referral if not better. Functional Status Description No Information Available Mental Status Description No Information Available Referrals Description No Information Available
--- OUTSIDE RECORDS SUMMARY | 2021-09-17 08:00 | CCD | Continuity of Care Document ---
Author Author Dyllan BERTRAND MD Organization Unknown Address [address] [place] [address] [address] [place] [address] Phone [phone] Care Team Providers Care Channel Manager Name Role Phone Aron Ayon M.D. AUTM [phone] AUTM Unavailable Problems Active Problems Provider Date Deviated nasal septum Edward Albrecht MD Onset: 10/02/2015 Dysfunction of eustachian tube Edward Albrecht MD Onset: Other specified disorders of Eustachian tube, bilateral Hermelindo as Brayden OTERO PA-C Onset: 03/18/2016 Atrial fibrillation Shavonne Maria, A.N.P. Onset: 2014 Disturbance of consciousness Shavonne Maria A.N.P. Onse t: 09/11/2015 Obstructive sleep apnea syndrome Shavonne Maria, A.N.P. Onset: 09/11/2015 Hypertrophy of nasal turbinates Aleks Bertrand MD Onset: 1 Social History Type Date Description Comments Sex Unknown ETOH Use Denies alcohol use Tobacco Use Start: Unknown Patient has never smoked Smoking Status Reviewed: 04/21/21 Patient has never smoked Allergies and adverse reactions Active Allergies Criticality Reaction | Severity Comments Date NKDA Unable to assess criticality 06/26/2018 Dust Mites Unable to assess criticality 06/11/2015 Mold Unable to assess criticality 06/11/2015 Pollen Unable to assess criticality 06/26/2018 Medications Active Medications SIG Qnty Indications Ordering Provide r Date CPAP 12cm lcw Unknown Aspirin Adult Low Dose 81mg Tablet s DR 2 tabs by mouth every day Unknown 00 Levothyroxine Sodium 50mcg Tablets 1 tab by mouth every day 30tabs Unknown Metoprolol Succinate ER 50mg Tablets ER 24HR 1 tab by mouth everyday Unknown Vitamin D 2000Unit Tablets 1 by mouth every day Unknown Fish Oil 1000mg Capsules 2 by mouth every day Unknown Immunizations Description No Information Available Vital Signs Date Vital Result Comment 08/21/2021 9:55am BP Systolic 136 mmHg BP Diastolic 72 mmHg Heart Rate 70 /min O2 % BldC Oximetry 97 % Height 67 inches 5'7" Weight 189.00 lb BMI (Body Mass Index) 29.6 kg/m2 [place] Body Weight 148 lb Weight 85.730 kg BSA (Body Surface Area) 1.97 m2 04/21/2021 8:42am BP Systolic 118 mmHg BP Diastolic 80 mmHg Heart Rate 70 /min O2 % BldC Oximetry 98 % Room Air Height 67 inches 5'7" Weight 188.00 lb BMI (Body Mass Index) 29.4 kg/m2 [place] Body Weight 148 lb Weight 85.277 kg BSA (Body Surface Area) 1.97 m2 Results Description No Information Available Procedures Date Code Description Status 08/21/2021 27550 Office/Outpatient New Low MDM 30 -44 Minutes Completed 08/21/2021 25874 Endoscopy Nasal Diagnostic Compl eted 04/21/2021 86008 Office/Outpatient Established Lo w MDM 20-29 Min Completed Medical Devices Description No Information Available Encounters Type Date Location Provider Dx Diagnosis Office Visit 08/21/2021 10:00a [facility] [place] J34.3 Hypertrophy of nasal turbinates Office Visit 04/21/2021 8:45a [facility] Pulmonary/Thoracic Lawrenc jazmín Hull MD G47.33 Obstructive sleep apnea (adult) (pediatr ic) J30.9 Allergic rhinitis, unspecifi ed Assessments Date Code Description Provider 08/21/2021 J34.3 Hypertrophy of nasal turbinates Aleks Bertrand MD 04/21/2021 G47.33 Obstructive sleep apnea (adult) (pediatric) Rusty Hull MD 04/21/2021 J30.9 Allergic rhinitis, unspecified L evert Hull MD Plan of Treatment No Information Available Functional Status Description No Information Available Mental Status Description No Information Available Referrals Refer to Reason for Referral Status Appt Date Aleks Bertrand M.D. [facility] Closed [address] [address] [phone]
--- OUTSIDE RECORDS SUMMARY | 2021-09-17 08:00 | CCD | Continuity of Care Document ---
Author Author Dyllan BERTRAND MD Organization Unknown Address [address] [place] [address] [address] [place] [address] Phone [phone] Care Team Providers Care Battery Repairer Name Role Phone Aron Ayon M.D. AUTM [phone] AUTM Unavailable Problems Active Problems Provider Date [...] 24HR 1 tab by mouth everyday Unknown 00 Vitamin D 2000Unit Tablets 1 by mouth [...] lb BMI (Body Mass Index) 29.6 kg/m2 [place] Body Weight 148 lb Weight 85.730 kg BSA (Body Surface Area) 1.97 m2 04/21/2021 8:42am BP Systolic 118 mmHg BP Diastolic 80 mmHg Heart Rate 70 /min O2 % BldC Oximetry 98 % Room Air Height 67 inches 5'7" Weight 188.00 lb BMI (Body Mass Index) 29.4 kg/m2 [place] [facility] Weight 148 lb Weight 85.277 kg BSA (Body Surface Area) 1.97 m2 Results Description No Information Available Procedures Date Code Description Status 04/21/2021 34403 Office/Outpatient Established Lo w MDM 20-29 Min Completed Medical Devices Description No Information Available Encounters Type Date Location Provider Dx Diagnosis Office Visit 04/21/2021 8:45a [facility] Lawrenc jazmín Hull MD G47.33 Obstructive sleep apnea (adult) (pediatr ic) J30.9 Allergic rhinitis, unspecifi ed Assessments Date Code Description Provider 08/21/2021 J34.3 Hypertrophy of nasal turbinates Aleks Bertrand MD 04/21/2021 G47.33 Obstructive sleep apnea (adult) (pediatric) Rusty Hull MD 04/21/2021 J30.9 Allergic rhinitis, unspecified L evert Hull MD Plan of Treatment 08/21/2021 - Aleks Bertrand MD* J34.3 Hypertrophy of nasal turbinates* Comments: * We discussed continued medical management versus surgery. We reviewed the risks and benefits and all questions were answered. He would avoid any NSAID type products and Multivite for 2 weeks prior to the procedure. He indicated that he would like to consider his options and call with a decision. Functional Status Description No Information Available Mental Status Description No Information Available Referrals Refer to Reason for Referral Status Appt Date Aleks Bertrand M.D. ALLERGIC RHINITIS Created [address] [address] [phone]
--- OUTSIDE RECORDS SUMMARY | 2021-09-17 08:00 | CCD ---
Author Author [facility] Organization [facility] Address Unknown Phone Unavailable Care Team Providers Care Filler Feeder Name Role Phone Katie Harvey Unavailable PROBLEMS Type Condition ICD9-CM Code [id number] Code Onset Dates Condition S tatus W/U Status Risk SNOMED Code Notes Problem Low testosterone level in male E29.1 Active confir med 472869469 Problem S/P ablation of atrial fibrillation Z98.89 Active c onfirmed Problem KIKI on CPAP G47.33 Active confirmed 11973076 Problem Potential for heavy metal poisoning Z91.89 Acti ve confirmed 69468881 Problem Thyroid function test abnormal R94.6 Active confir med 528914356 Problem Atrial fibrillation I48.91 Active confirmed 62697704 converted to NSR, Eliquis d/c 4/18 by cardio Problem Personal history of other diseases of the circulatory syst em Z86.79 Active confirmed 484536247 Problem Chronic fatigue and malaise R53.82 Active confirmed 242240029 Problem Hypertensive heart disease without heart failure I 11.9 Active confirmed 91227911 Problem Allergic rhinitis, unspecified J30.9 Active confir med 71053981 Problem Vitamin D deficiency E55.9 Active confirmed 59388927 Problem Hypothyroidism, unspecified type E03.9 Active conf irmed 40876749 Problem Allergic rhinitis J30.9 Active confirmed 61 410266 Problem Allergic rhinitis, unspecifi ed allergic rhinitis trigger, unspecified rhinitis seasonality J30.9 Active confirmed 98290101 Problem Screening for prostate cancer Z12.5 Active confirm ed 339373756 Problem Other and unspecified hyperlipidemia E78.5 Act stephanie confirmed 94415651 Problem Acute atopic conjunctivitis, bilateral H10.13 A ctive confirmed 511999154 ALLERGIES No Known Allergies ENCOUNTERS from 1965 to 2021-08-10 Encounter Location Date Provider Diagnosis [facility] Dermatology [facility] [phone] [place] [address] Jul, Katie Candice Onychomycosis B35.1 and Sebo rrheic dermatitis L21.9 IMMUNIZATIONS No Information SOCIAL HISTORY Tobacco Use: [...] FOR REFERRAL No Information VITAL SIGNS Weight 191.2 lbs Jul, Weight-kg 86.73 kg Jul, Height 66 in Jul, BMI 30.86 kg/m2 Jul, Blood pressure systolic 142 mm Hg Jul, Blood pressure diastolic 82 mm Hg Jul, MEDICATIONS Medication SIG (Take, Route, Frequency, Duration) Notes Start Da te End Date Status Zyrtec 1 tab Oral for 14 days Ac tive Mometasone Furoate 0.1 % 1 application Externally Onc e a day as needed for UP TO TEN DAYS to dry skin rash for 10 days Jul, Active Levothyroxine Sodium 50 MCG 1 tablet in the morning on an empty stomach Orally Once a day for 30 Active Aspir-81 81 MG 2 tablet Orally Once a day Active Azelastine HCl 137 MCG/SPRAY 1 puff in each nostril Na chris Twice a day for 30 day(s) Active Metoprolol Tartrate 50 MG 1 tablet with food Orally Daily Active Ciclopirox 8 % 1 application Externally Onc e a day to affected toenails for 30 days Jul, Active PROCEDURES No Information RESULTS No Results REASON FOR VISIT 8-10 week nail f/u MEDICAL (GENERAL) HISTORY Type Description Date Medical History at [facility], failed ablation-- fo [place] cardio Dr Sorenson (limited records). Converted NSR, taken off Eliquis by cardio 02/15, started aspirin Medical History chronic fatigue Medical History ? hypothyroidism-- saw endoc rine 03/15, nl TFTs off TRT, felt to be euthyroid; nl TFT 10/16 Medical History hypogonadism- saw endo 03/15, offered tx/ declined Medical History contaminated well 2015, saw atv mechanic TRINIDAD 05/15, felt to be w/o evidence of poisoning Medical History all rhinitis Medical History KIKI, on nasal CPAP Medical History TIA Medical History HTN Medical History Vit D defic-- resolved 09/19 Medical History hyperlipidemia-10 yr ASCVD risk 3.7% (6 18) Surgical History cardiac ablation Dr Delta ABDI 03/08/15 Surgical History colonoscopy--tubular adenoma (fragments) 01/16 Hospitalization History at [facility]-- [facility] 10/13/15 Goals Section No Information Health Concerns No Information MEDICAL EQUIPMENT No Information MENTAL STATUS No Information FUNCTIONAL STATUS No Information ASSESSMENTS Encounter Date Diagnosis Assessment Notes Treatment Notes Treatm ent Clinical Notes Jul, Onychomycosis (ICD-10 - B35.1) Jul, Seborrheic dermatitis (ICD-10 - L21.9) Advised patient that overusing topical steroids can lead to thinning of the skin, stretch leyva, acne, possible lightening of the skin pigmentation and significant systemic absorption which can be dangerous. Described the proper way to apply and how to use correctly to minimize risk of side effects. Warned to avoid application on the thin skin of the face and groin unless specifically instructed to do so. PLAN OF TREATMENT Treatment Notes Assessment Notes Clinical Notes Seborrheic dermatitis Advised patient th at overusing topical steroids can lead to thinning of the skin, stretch leyva, acne, possible lightening of the skin pigmentation and significant systemic absorption which can be dangerous. Described the proper way to apply and how to use correctly to minimize risk of side effects. Warned to avoid application on the thin skin of the face and groin unless specifically instructed to do so. Treatment Notes Test Name Order Date FUNGUS SM & CULT HAIR NAIL SKI 2021-07-27 Next Appt Details 3 Months Reason:nail f/u Provider Name:Aron Ayon, 2021-08 10:45:00 AM, [address], , [place], [address], Provider Name:Katie Harvey, 09:00:00 AM, [address] [place] [address], , [place], [address], Follow Up:3 Monthsnail f/u Insurance Providers Payer Name Payer Address Payer Phone Insured Name Patient Relati onship to Insured Coverage Start Date Coverage End Date [employer] PPO [id number] [facility] [address] [facility] [id number] ESTEVAN OLSEN self
--- OUTSIDE RECORDS SUMMARY | 2021-09-17 08:00 | CCD | Continuity of Care Document ---
Author Author Dyllan Young Organization Unknown Address [address], [place] [address] Phone [phone] Care Team Providers Care Shipwright Supervisor Name Role Phone Aron Ayon MD AUTM [phone] Problems Active Problems Provider Date Allergic rhinitis due to house dust mite Jordon Armando M.D. Onset: 07/09/2020 Note: On IT. 3+ reaction to dust mite on intradermal test completed in 2018. Allergic rhinitis due to pollen Onset: 0 03/16/2018 Note: On IT. 2+ reaction to tree mix #1 and ragweed on intradermal test completed in 2019. Essential hypertension ISABELL Gibson Onset: 08/23/20 19 Vasomotor rhinitis Jordon Armando M.D. Onset: 020 Social History Type Date Description Comments Sex Unknown Tobacco Use Reviewed: 05/14/21 Patient has never smoked Smoking Status Reviewed: 05/14/21 Patient has never smoked Allergies and adverse reactions Description No Known Drug Allergies Medications Active Medications SIG Qnty Indications Ordering Provide r Date Azelastine HCL (Nasal) 137mcg/Beverly Solution 2 sprays each nostril up to twice a day 1units J30.0 Jordon Armando M.D. 05/14/2021 Cetirizine HCL 10mg Tablets take 1 tablet (10 mg) by oral route once daily for 30 days 30tabs Chau Armando M.D. Levothyroxine Sodium 100mcg Tablet s Take one half-tablet ( 50 mcg) by mouth once daily as directed Unknown SM Aspirin Adult Low Strength 81mg Tablets DR Unknown Metoprolol Succinate ER 50mg Tablets ER 24HR Take One Tablet By Mouth Every Day Unknow n Fluconazole 150mg Tablets Take 1 tablet once weekly Katie Harvey MPAS RPA-C Saline Mist Beverly 0.65% Solution 1 spray each nostril three times a day as needed Unknown Medications Administered in Office Medication SIG Qnty Indications Ordering Provider Date Allergy Injection 2 Or More Injection Jordon Armando M.D. 08/27/2021 Allergy Injection 2 Or More Injection Jordon Armando M.D. 08/06/2021 Allergy Injection 2 Or More Injection Jordon Armando M.D. 07/16/2021 Allergy Injection 2 Or More Injection Jordon Armando M.D. 06/18/2021 Allergy Injection 2 Or More Injection Jordon Armando M.D. 05/28/2021 Allergy Injection 2 Or More Injection Jordon Armando M.D. 05/05/2021 Allergy Injection 2 Or More Injection Jordon Armando M.D. 04/06/2021 Allergy Injection 2 Or More Injection Jordon Armando M.D. 03/18/2021 Allergy Injection 2 Or More Injection Jordon Armando M.D. 02/26/2021 Allergy Injection 2 Or More Injection Jordon Armando M.D. 02/03/2021 Allergy Injection 2 Or More Injection Jordon Armando M.D. 01/14/2021 Allergy Injection 2 Or More Injection Jordon Armando M.D. 12/22/2020 Allergy Injection 2 Or More Injection Jordon Armando M.D. 12/03/2020 Allergy Injection 2 Or More Injection Jordon Armando M.D. 11/11/2020 Allergy Injection 2 Or More Injection Jordon Armando M.D. 10/21/2020 Allergy Injection 2 Or More Injection Jordon Armando M.D. 09/30/2020 Allergy Injection 2 Or More Injection Jordon Armando M.D. 09/11/2020 Allergy Injection 2 Or More Injection Jordon Armando M.D. 08/21/2020 Allergy Injection 2 Or More Injection MIS Chavez 07/31/2020 Allergy Injection 2 Or More Injection Jordon Armando M.D. 07/31/2020 Allergy Injection 2 Or More Injection JordonVee BobDMarie 07/10/2020 Allergy Injection 2 Or More Injection Camila Perla.Allyssa 06/17/2020 Allergy Injection 2 Or More Injection Jordon Armando M.D. 05/29/2020 Allergy Injection 2 Or More Injection JordonCamila Bob.Allyssa 05/08/2020 Allergy Injection 2 Or More Injection Jordonterrie Armando M.D. 04/17/2020 Allergy Injection 2 Or More Injection Jordon Armando M.D. 03/27/2020 Allergy Injection 2 Or More Injection Camila Perla.Allyssa 03/05/2020 Allergy Injection 2 Or More Injection Jordon Armando M.D. 02/14/2020 Allergy Injection 2 Or More Injection Jordongraeme Armando M.D. 01/24/2020 Allergy Injection 2 Or More Injection JordonCamila Bob.Allyssa 01/01/2020 Allergy Injection 2 Or More Injection Jordongraeme Armando M.D. 12/18/2019 Allergy Injection 2 Or More Injection Jordongraeme Armando M.D. 12/11/2019 Allergy Injection 2 Or More Injection Vee PerlaDMarie 12/04/2019 Allergy Injection 2 Or More Injection Jordon Armando M.D. 11/27/2019 Allergy Injection 2 Or More Injection JordonCamila Bob.DMarie 11/20/2019 Allergy Injection 2 Or More Injection Jordon Camila Armando.DMarie 11/13/2019 Allergy Injection 2 Or More Injection Jordongraeme Armando M.D. 11/06/2019 Allergy Injection 2 Or More Injection JordonVee BobDMarie 10/29/2019 Allergy Injection 2 Or More Injection JordonCamila Bob.DMarie 10/22/2019 Allergy Injection 2 Or More Injection Jordon Armando M.D. 10/16/2019 Allergy Injection 2 Or More Injection JordonCamila Bob.Allyssa 10/10/2019 Allergy Injection 2 Or More Injection Jordon Armando M.D. 10/02/2019 Allergy Injection 2 Or More Injection Jordon Armando M.D. 09/25/2019 Allergy Injection 2 Or More Injection Jordon Armando M.D. 09/18/2019 Allergy Injection 2 Or More Injection Jordon Armando M.D. 09/11/2019 Allergy Injection 2 Or More Injection Jordon Armando M.D. 09/04/2019 Allergy Injection 2 Or More Injection Jordon Armando M.D. 08/28/2019 Allergy Injection 2 Or More Injection Jordon Armando M.D. 08/21/2019 Allergy Injection 2 Or More Injection Jordon Armando M.D. 08/14/2019 Allergy Injection 2 Or More Injection Jordon Armando M.D. 08/07/2019 Allergy Injection 2 Or More Injection ISABELL Gibson 07/31/2019 Allergy Injection 2 Or More Injection Jordon Armando M.D. 07/31/2019 Allergy Injection 2 Or More Injection ISABELL Gibson 07/24/2019 Allergy Injection 2 Or More Injection Jordon Armando M.D. 07/24/2019 Allergy Injection 2 Or More Injection Jordon Armando M.D. 07/17/2019 Allergy Injection 2 Or More Injection Jordon Armando M.D. 07/10/2019 Allergy Injection 2 Or More Injection Jordon Armando M.D. 07/03/2019 Allergy Injection 2 Or More Injection Jordon Armando M.D. 06/26/2019 Immunizations Description No Information Available [...] Information Available Procedures Date Code Description Status 08/27/2021 71366 Allergy Injection 2 Or More Comp leted 08/06/2021 62677 Allergy Injection 2 Or More Comp leted 07/16/2021 70908 Allergy Injection 2 Or More Comp leted 06/18/2021 25639 Allergy Injection 2 Or More Comp leted 05/28/2021 10955 Allergy Injection 2 Or More Comp leted 05/14/2021 60791 Office/Outpatient Established Mo d MDM 30-39 Min Completed 05/05/2021 71101 Allergy Injection 2 Or More Comp leted 04/06/2021 97673 Allergy Injection 2 Or More Comp leted 04/03/2021 15226 Allergy Antigens Single Or Multi ple Completed 03/18/2021 62604 Allergy Injection 2 Or More Comp leted 02/26/2021 76592 Allergy Injection 2 Or More Comp leted Medical Devices Description No Information Available Encounters Type Date Location Provider Dx Diagnosis Office Visit 05/14/2021 9:45a Main Office Jordon Armando M.D. J30.0 Vasomotor rhinitis J30.1 Allergic rhinitis due to brijesh kristy J30.89 Other allergic rhinitis Assessments Date Code Description Provider 08/27/2021 J30.1 Allergic rhinitis due to pollen Jordon Armando M.D. 08/27/2021 J30.89 Other allergic rhinitis Jordon Armando M.D. Plan of Treatment Future Appointment(s):* 09/17/2021 9:00 am - Allergy Injection at Main Office * 11/19/2021 8:45 am - Jordon Armando M.D. at Main Office 05/14/2021 - Jordon Armando M.D.* J30.0 Vasomotor rhinitis* New Medication:* Azelastine HCL (Nasal) 137 mcg/Beverly - 2 sprays each nostril up to [...]
--- OUTSIDE RECORDS SUMMARY | 2021-09-17 08:00 | CCD ---
Author Author [facility] Organization [facility] Address Unknown Phone Unavailable Care Team Providers Care Buckle Stringer Name Role Phone Aron Ayon Unavailable PROBLEMS Type Condition ICD9-CM Code WFW13-MC Code Onset Dates Condition S tatus W/U Status Risk SNOMED Code Notes Problem Low testosterone level in male E29.1 Active confir med 866551182 Problem S/P ablation of atrial fibrillation Z98.89 Active c onfirmed Problem KIKI on CPAP G47.33 Active confirmed 47795278 Problem Potential for heavy metal poisoning Z91.89 Acti ve confirmed 58421383 Problem Thyroid function test abnormal R94.6 Active confir med 432309816 Problem Atrial fibrillation I48.91 Active confirmed 28417604 converted to NSR, Eliquis d/c 18 by cardio Problem Personal history of other diseases of the circulatory syst em Z86.79 Active confirmed 275097020 Problem Chronic fatigue and malaise R53.82 Active confirmed 001410309 Problem Hypertensive heart disease without heart failure I 11.9 Active confirmed 88747000 Problem Allergic rhinitis, unspecified J30.9 Active confir med 54894753 Problem Vitamin D deficiency E55.9 Active confirmed 54414352 Problem Hypothyroidism, unspecified type E03.9 Active conf irmed 18497600 Problem Allergic rhinitis J30.9 Active confirmed 61 021758 Problem Allergic rhinitis, unspecifi ed allergic rhinitis trigger, unspecified rhinitis seasonality J30.9 Active confirmed 72195356 Problem Screening for prostate cancer Z12.5 Active confirm ed 780256367 Problem Other and unspecified hyperlipidemia E78.5 Act stephanie confirmed 03398398 Problem Acute atopic conjunctivitis, bilateral H10.13 A ctive confirmed 218361871 ALLERGIES No Known Allergies ENCOUNTERS from 1965 to 2021-08-07 Encounter Location Date Provider Diagnosis [place] [address] [facility] [phone] [place] [address] Jul, Aron Ayon IMMUNIZATIONS No Information SOCIAL HISTORY Tobacco [...] Information RESULTS No Results REASON FOR VISIT call MEDICAL (GENERAL) HISTORY Type Description Date Medical History at [facility], failed ablation-- fo [place] cardio Dr Sorenson (limited records). Converted NSR, taken off Eliquis by cardio 02/15, started aspirin Medical History chronic fatigue Medical History ? hypothyroidism-- saw endoc rine 03/15, nl TFTs off TRT, felt to be euthyroid; nl TFT 10/16 Medical History hypogonadism- saw endo 03/15, offered tx/ declined Medical History contaminated well 2015, saw men's and boys' clothing salesperson [employer]INID[employer] 05/15, felt to be w/o evidence of poisoning Medical History all rhinitis Medical History KIKI, on nasal CPAP Medical History TIA Medical History HTN Medical History Vit D defic-- resolved 09/19 Medical History hyperlipidemia-10 yr ASCVD risk 3.7% (6 ) Surgical History cardiac ablation Dr Delta ABDI 03/08/15 Surgical History colonoscopy--tubular adenoma (fragments) 01/16 Hospitalization History at [facility]-- [facility] 10/13/15 Goals Section No Information Health Concerns No Information MEDICAL EQUIPMENT No Information MENTAL STATUS No Information FUNCTIONAL STATUS No Information ASSESSMENTS No Information PLAN OF TREATMENT Next Appt Details Provider Name:Aron Ayon, 2021-08 10:45:00 AM, [address] [facility] , [place], [address], Provider Name:Katie Harvey, 09:00:00 AM, [address] [place] [address], , [place], [address], Insurance Providers Payer Name Payer Address Payer Phone Insured Name Patient Relati onship to Insured Coverage Start Date Coverage End Date [facility] [phone] [facility] [place] [id number] ESTEVAN OLSEN self
--- OUTSIDE RECORDS SUMMARY | 2021-09-17 08:00 | CCD ---
Author Author [facility] Organization [facility] Syst ems Address Unknown Phone Unavailable Care Team Providers Care Turkey Egg Gatherer Name Role Phone Aron Ayon Unavailable PROBLEMS Type Condition ICD9-CM Code [id number] Code Onset Dates Condition S tatus W/U Status Risk SNOMED Code Notes Problem Low testosterone level in male E29.1 Active confir med 396844956 Problem S/P ablation of atrial fibrillation Z98.89 Active c onfirmed Problem KIKI on CPAP G47.33 Active confirmed 25545326 Problem Potential for heavy metal poisoning Z91.89 Acti ve confirmed 94810569 Problem Thyroid function test abnormal R94.6 Active confir med 518015836 Problem Atrial fibrillation I48.91 Active confirmed 59502133 converted to NSR, Eliquis d/c 18 by cardio Problem Personal history of other diseases of the circulatory syst em Z86.79 Active confirmed 358954408 Problem Chronic fatigue and malaise R53.82 Active confirmed 023458889 Problem Hypertensive heart disease without heart failure I 11.9 Active confirmed 35486721 Problem Allergic rhinitis, unspecified J30.9 Active confir med 74046549 Problem Vitamin D deficiency E55.9 Active confirmed 61017185 Problem Hypothyroidism, unspecified type E03.9 Active conf irmed 09627016 Problem Allergic rhinitis J30.9 Active confirmed 61 314945 Problem Allergic rhinitis, unspecifi ed allergic rhinitis trigger, unspecified rhinitis seasonality J30.9 Active confirmed 45846685 Problem Screening for prostate cancer Z12.5 Active confirm ed 309726512 Problem Other and unspecified hyperlipidemia E78.5 Act stephanie confirmed 54944745 Problem Acute atopic conjunctivitis, bilateral H10.13 A ctive confirmed [id number] ALLERGIES No Known Allergies ENCOUNTERS from 1967 to 2021-08-07 Encounter Location Date Provider Diagnosis [facility] [place] [address] [place] [address] Jul, Aron Ayon Atrial fibrillation I48.91 ; Hypertensiv e heart disease without heart failure I11.9 ; Chronic fatigue and malaise R53.82 ; KIKI on CPAP G47.33 ; Screening for prostate cancer Z12.5 ; S/P ablation of atrial fibrillation Z98.89 ; Hypothyroidism, unspecified type E03.9 ; Vitamin D deficiency E55.9 and Allergic rhinitis J30.9 IMMUNIZATIONS No Information SOCIAL HISTORY Tobacco Use: [...] you a: never smoker REASON FOR REFERRAL from 1967 to 2021-08-07 Reason chronic congestion Diagnosis 1 Allergic rhinitis (J30.9) Referral Organization [facility] [place] Referring Provider First Name Aron Referring Provider Last Name Gabo Referring Provider Specialty Family Medicine Referred Provider DAVE,ENT ([facility]) Referred Provider Specialty Otolaryngology Referral Priority Routine General Notes Riya Miller 08/06/2021 4: 26:03 PM > faxed Reason allergies Diagnosis 1 Allergic rhinitis (J30.9) Referral Organization [facility] [place] Referring Provider First Name Aron Referring Provider Last Name Gabo Referring Provider Specialty Family Medicine Referred Provider Clay Coulter Referred Provider Specialty Allergy/Immunology Referral Priority Routine General Notes Riya Miller 08/06/2021 4: 26:37 PM > faxed VITAL SIGNS Weight 189 lbs Jul, Height 66 in Jul, BMI 30.50 kg/m2 Jul, Heart Rate 75 /min Jul, Respiratory Rate 18 /min Jul, Temperature 98.0 degrees Fahrenheit Jul, Oximetry 96 Jul, Blood pressure systolic 138 mm Hg Jul, Blood pressure diastolic 72 mm Hg Jul, MEDICATIONS Medication SIG (Take, [...] Information RESULTS No Results REASON FOR VISIT follow up/ in car MEDICAL (GENERAL) HISTORY Type Description Date Medical History at [facility], failed ablation-- [facility] cardio Dr Sorenson (limited records). Converted NSR, taken off Eliquis by cardio 02/15, started aspirin Medical History chronic fatigue Medical History ? hypothyroidism-- saw endoc rine 03/15, nl TFTs off TRT, felt to be euthyroid; nl TFT 10/16 Medical History hypogonadism- saw endo 03/15, offered tx/ declined Medical History contaminated well 2015, saw material handler 2nd shift [place] 05/15, felt to be w/o evidence of poisoning Medical History all rhinitis Medical History KIKI, on nasal CPAP Medical History TIA Medical History HTN Medical History Vit D defic-- resolved 09/19 Medical History hyperlipidemia-10 yr ASCVD risk 3.7% (6 ) Surgical History cardiac ablation Dr Delta ABDI 03/08/15 Surgical History colonoscopy--tubular adenoma (fragments) 01/16 Hospitalization History at [facility]-- [facility] 10/13/15 Goals Section No Information Health Concerns No Information MEDICAL EQUIPMENT No Information MENTAL STATUS No Information FUNCTIONAL STATUS No Information ASSESSMENTS Encounter Date Diagnosis Assessment Notes Treatment Notes Treatm ent Clinical Notes Jul, Hypertensive heart disease without heart failure (ICD-10 - I11.9) Per JNC 8 guidelines, goal BP < 140/90 (150/90 if age >60), is meeting goal on current regimen. Advised heart-healthy diet, sodium restriction Jul, Atrial fibrillation (ICD-10 - I48.91) co nverted to NSR, Erum d/lyle 02/15 by cardio in NSR on exam. sees cardio in Jul, Chronic fatigue and malaise (ICD-10 - R53.82) extensive workups have been unrevealing Jul, KIKI on CPAP (ICD-10 - G47.33) compliant [facility] CPAP Jul, Screening for prostate cancer (ICD-10 - Z12.5) Jul, S/P ablation of atrial fibrillation (ICD-10 - Z9 8.89) Jul, Hypothyroidism, unspecified type (ICD-10 - E03.9 ) Thyroid function tests WNL on current dose of thyroid replacement w/o sx of over/underdosing Jul, Vitamin D deficiency (ICD-10 - E55.9) Jul, Allergic rhinitis (ICD-10 - J30.9) he doesn't feel the allergy shots are helping. Will get ENT referral. He is considering a second opinion Jul, Other 10 year ASCVD r isk using ASCVD Risk Gas Operations Superintendent + calculated to be: <10% ; medical tx not indicated. PLAN OF TREATMENT Treatment Notes Assessment Notes Clinical Notes Hypertensive heart disease without heart failure Per JNC 8 guidelines, goal BP < 140/90 (150/90 if age >60), is meeting goal on current regimen. Advised heart- healthy diet, sodium restriction Atrial fibrillation in NSR on exam. sees cardio in August Chronic fatigue and malaise extensive wo rkups have been unrevealing KIKI on CPAP compliant [facility] CPAP Hypothyroidism, unspecified type Thyroid function tests WNL on current dose of thyroid replacement w/o sx of over/underdosing Allergic rhinitis he doesn't feel the allergy shots are helping. Will get ENT referral. He is considering a second opinion Future Test Test Name Order Date FREE T4 & TSH PANEL [id number] Referrals Referral Date Details chronic congestion, ENT ([facility]) [facility] allergies, Clay Coulter Next Appt Details 4 Months Reason: Provider Name:Aron Ayon, 2021-08 10:45:00 AM, [address], , [place], [address], Provider Name:Katie Castle Amberlysarbjit, 09:00:00 AM, [address] [place] [address], , [place], [address], Insurance Providers Payer Name Payer Address Payer Phone Insured Name Patient Relati onship to Insured Coverage Start Date Coverage End Date [phone] [facility] [place] [id number] ESTEVAN OLSEN self
--- OUTSIDE RECORDS SUMMARY | 2021-09-17 08:00 | CCD | Continuity of Care Document ---
Author Author Dyllan SURESH Organization Unknown Address [address], [address], [place] [address] Phone [phone] Care Team Providers Care Trail Construction Worker Name Role Phone Aron Ayon MD AUTM [phone] Problems Active Problems Provider Date Allergic rhinitis [...] Ordering Provide r Date Azelastine HCL (Nasal) 137mcg/[place] Solution 2 sprays each nostril up to [...] weekly Katie Harvey MPAS RPA-C Saline Mist [place] 0.65% Solution 1 spray each nostril three [...] Injection 2 Or More Injection Jordon Camila Suresh.DMarie 07/31/2020 Allergy Injection 2 Or More Injection Jordon Tr M.DMarie 07/10/2020 Allergy Injection 2 Or More Injection Jordon Tr M.DMarie 06/17/2020 Allergy Injection 2 Or More Injection Jordon Tr M.DMarie 05/29/2020 Allergy Injection 2 Or More Injection Jordon Camila Suresh.DMarie 05/08/2020 Allergy Injection 2 Or More Injection Jordon Tr M.DMarie 04/17/2020 Allergy Injection 2 Or More Injection Jordon Camila Suresh.DMarie 03/27/2020 Allergy Injection 2 Or More Injection Jordon Camila Suresh.DMarie 03/05/2020 Allergy Injection 2 Or More Injection Jordon Camila Suresh.DMarie 02/14/2020 Allergy Injection 2 Or More Injection Jordon Israel Suresh 01/24/2020 Allergy Injection 2 Or More Injection Jordon Camila Suresh.DMarie 01/01/2020 Allergy Injection 2 Or More Injection Jordon Tr M.DMarie 12/18/2019 Allergy Injection 2 Or More Injection Jordon Camila Suresh.DMarie 12/11/2019 Allergy Injection 2 Or More Injection Jordon Camila Suresh.DMarie 12/04/2019 Allergy Injection 2 Or More Injection Jordon Tr M.DMarie 11/27/2019 Allergy Injection 2 Or More Injection Jordon Camila Suresh.DaMrie 11/20/2019 Allergy Injection 2 Or More Injection Jordon Tr M.DMarie 11/13/2019 Allergy Injection 2 Or More Injection Jordon Tr M.DMarie 11/06/2019 Allergy Injection 2 Or More Injection Jordon Camila Suresh.DMarie 10/29/2019 Allergy Injection 2 Or More Injection Jordon Tr M.DMarie 10/22/2019 Allergy Injection 2 Or More Injection Jordon Tr M.DMarie 10/16/2019 Allergy Injection 2 Or More Injection JordonCamila Bob.DMarie 10/10/2019 Allergy Injection 2 Or More Injection Jordon Vee SureshD. 10/02/2019 Allergy Injection 2 Or More Injection [...] 08/07/2019 Allergy Injection 2 Or More Injection NATHANAEL Gibson-C 07/31/2019 Allergy Injection 2 Or More Injection [...] Information Available Procedures Date Code Description Status 08/06/2021 99200 Allergy Injection 2 Or More Comp leted 07/16/2021 03753 Allergy Injection 2 Or More Comp leted 06/18/2021 26447 Allergy Injection 2 Or More Comp leted 05/28/2021 17976 Allergy Injection 2 Or More Comp leted 05/14/2021 86002 Office/Outpatient Established Mo d MDM 30-39 Min Completed 05/05/2021 89459 Allergy Injection 2 Or More Comp leted 04/06/2021 60976 Allergy Injection 2 Or More Comp leted 04/03/2021 60522 Allergy Antigens Single Or Multi ple Completed 03/18/2021 49733 Allergy Injection 2 Or More Comp leted 02/26/2021 07017 Allergy Injection 2 Or More Comp leted Medical Devices Description No Information Available Encounters Type Date Location Provider Dx Diagnosis Office Visit 05/14/2021 9:45a Main Office Jordon Suresh M.D. J30.0 Vasomotor rhinitis J30.1 Allergic rhinitis due to brijesh kristy J30.89 Other allergic rhinitis Assessments Date Code Description Provider 08/06/2021 J30.1 Allergic rhinitis due to pollen Jordon Suresh M.D. 08/06/2021 J30.89 Other allergic rhinitis Jordon Suresh M.D. Plan of Treatment Future Appointment(s):* 08/27/2021 9:40 am - Allergy Injection at Main Office * 11/19/2021 8:45 am - Jordon Suresh M.D. at Main Office 05/14/2021 - Jordon Suresh M.D.* J30.0 Vasomotor rhinitis* New Medication:* Azelastine HCL (Nasal) 137 mcg/Reno - 2 sprays each nostril up to [...]
--- OUTSIDE RECORDS SUMMARY | 2021-09-17 08:00 | CCD | Continuity of Care Document ---
Author Author Dyllan Young Organization Unknown Address [address], [address], [place] [address] Phone [phone] Care Team Providers Care Gas Engine Operator Name Role Phone Aron Ayon MD AUTM [phone] Problems Active Problems Provider Date Allergic rhinitis [...] Ordering Provide r Date Azelastine HCL (Nasal) 137mcg/[place] Solution 2 sprays each nostril up to [...] weekly Katie Harvey MPAS RPA-C Saline Mist [place] 0.65% Solution 1 spray each nostril three [...] 2 Or More Injection Jordon Camila Armando.DMarie 07/31/2020 Allergy Injection 2 Or More Injection Jordon Camila Armando.DMarie 07/10/2020 Allergy Injection 2 Or More Injection Jordon Tr M.DMarie 06/17/2020 Allergy Injection 2 Or More Injection Jordon Tr M.DMarie 05/29/2020 Allergy Injection 2 Or More Injection Jordonterrie Armando M.D. 05/08/2020 Allergy Injection 2 Or More Injection Jordon Tr M.DMarie 04/17/2020 Allergy Injection 2 Or More Injection Jordon Tr M.DMarie 03/27/2020 Allergy Injection 2 Or More Injection Jordonterrie Armando M.D. 03/05/2020 Allergy Injection 2 Or More Injection JordonCamila Bob.DMarie 02/14/2020 Allergy Injection 2 Or More Injection JordonCamila Bob.Allyssa 01/24/2020 Allergy Injection 2 Or More Injection Jordonterrie Armando M.D. 01/01/2020 Allergy Injection 2 Or More Injection Jordon Camila Armando.DMarie 12/18/2019 Allergy Injection 2 Or More Injection JordonCamila Bob.Allyssa 12/11/2019 Allergy Injection 2 Or More Injection JordonCamila Bob.DMarie 12/04/2019 Allergy Injection 2 Or More Injection JordonCamila Bob.DMarie 11/27/2019 Allergy Injection 2 Or More Injection JordonCamila Bob.Allyssa 11/20/2019 Allergy Injection 2 Or More Injection Jordon Camila Armando.DMarie 11/13/2019 Allergy Injection 2 Or More Injection Jordon Tr M.DMarie 11/06/2019 Allergy Injection 2 Or More Injection JordonCamila Bob.DMarie 10/29/2019 Allergy Injection 2 Or More Injection Jordon Camila Armando.DMarie 10/22/2019 Allergy Injection 2 Or More Injection JordonCamila Bob.DMarie 10/16/2019 Allergy Injection 2 Or More Injection JordonCamila Bob.Allyssa 10/10/2019 Allergy Injection 2 Or More Injection Jordon Camila Armando.DMaire 10/02/2019 Allergy Injection 2 Or More Injection [...] Available Procedures Date Code Description Status 08/06/2021 51040 Allergy Injection 2 Or More Comp leted 07/16/2021 47759 Allergy Injection 2 Or More Comp leted 06/18/2021 35747 Allergy Injection 2 Or More Comp leted 05/28/2021 75343 Allergy Injection 2 Or More Comp leted 05/14/2021 60555 Office/Outpatient Established Mo d MDM 30-39 Min Completed 05/05/2021 78232 Allergy Injection 2 Or More Comp leted 04/06/2021 97179 Allergy Injection 2 Or More Comp leted 04/03/2021 48885 Allergy Antigens Single Or Multi ple Completed 03/18/2021 51522 Allergy Injection 2 Or More Comp leted 02/26/2021 07887 Allergy Injection 2 Or More Comp leted Medical Devices Description No Information Available Encounters Type Date Location Provider Dx Diagnosis Office Visit 05/14/2021 9:45a Main Office Jordon Armando M.D. J30.0 Vasomotor rhinitis J30.1 Allergic rhinitis due to brijesh kristy J30.89 Other allergic rhinitis Assessments Date Code Description Provider 08/06/2021 J30.1 Allergic rhinitis due to pollen Jordon Armando M.D. 08/06/2021 J30.89 Other allergic rhinitis Jordon Armando M.D. Plan of Treatment Future Appointment(s):* 08/27/2021 9:40 am - Allergy Injection at Main Office * 11/19/2021 8:45 am - Jordon Armando M.D. at Main Office 05/14/2021 - Jordon Armando M.D.* J30.0 Vasomotor rhinitis* New Medication:* Azelastine HCL (Nasal) 137 mcg/[place] - 2 sprays each nostril up to [...]
--- OUTSIDE RECORDS SUMMARY | 2021-09-17 08:00 | CCD | Continuity of Care Document ---
Author Author Dyllan BERTRAND MD Organization Unknown Address [address] [place] [address] [address] [place] [address] Phone [phone] Care Team Providers Care Newspaper Columnist Name Role Phone Aron Ayon M.D. AUTM [phone] AUTM Unavailable Problems Active Problems Provider Date [...] lb BMI (Body Mass Index) 29.6 kg/m2 [place] Body Weight 148 lb Weight 85.730 kg BSA (Body Surface Area) 1.97 m2 04/21/2021 8:42am BP Systolic 118 mmHg BP Diastolic 80 mmHg Heart Rate 70 /min O2 % BldC Oximetry 98 % Room Air Height 67 inches 5'7" Weight 188.00 lb BMI (Body Mass Index) 29.4 kg/m2 [place] Body Weight 148 lb Weight 85.277 kg BSA (Body Surface Area) 1.97 m2 Results Description No Information Available Procedures Date Code Description Status 04/21/2021 37111 Office/Outpatient Established Lo w MDM 20-29 Min Completed Medical Devices Description No Information Available Encounters Type Date Location Provider Dx Diagnosis Office Visit 04/21/2021 8:45a [facility] Lawrenc jazmín [place] MD G47.33 Obstructive [...] Aleks Bertrand M.D. ALLERGIC RHINITIS Created [address] [address] [phone]
--- OUTSIDE RECORDS SUMMARY | 2021-09-17 08:00 | CCD ---
Author Author [facility] Organization [facility] Address Unknown Phone Unavailable Care Team Providers Care Obstetrics Specialist Name Role Phone Aron Ayon Unavailable PROBLEMS Type Condition ICD9-CM Code [id number] Code Onset Dates Condition S tatus W/U Status Risk SNOMED Code Notes Problem Low testosterone level in male E29.1 Active confir med 659213602 Problem S/P ablation of atrial fibrillation Z98.89 Active c onfirmed Problem KIKI on CPAP G47.33 Active confirmed 38841793 Problem Potential for heavy metal poisoning Z91.89 Acti ve confirmed 79859558 Problem Thyroid function test abnormal R94.6 Active confir med 305279834 Problem Atrial fibrillation I48.91 Active confirmed 69653072 converted to NSR, Eliquis d/c 18 by cardio Problem Personal history of other diseases of the circulatory syst em Z86.79 Active confirmed 993948151 Problem Chronic fatigue and malaise R53.82 Active confirmed 078743128 Problem Hypertensive heart disease without heart failure I 11.9 Active confirmed 14525730 Problem Allergic rhinitis, unspecified J30.9 Active confir med 29904988 Problem Vitamin D deficiency E55.9 Active confirmed 03155941 Problem Hypothyroidism, unspecified type E03.9 Active conf irmed 40407333 Problem Allergic rhinitis J30.9 Active confirmed 61 086453 Problem Allergic rhinitis, unspecifi ed allergic rhinitis trigger, unspecified rhinitis seasonality J30.9 Active confirmed 53654301 Problem Screening for prostate cancer Z12.5 Active confirm ed 813106592 Problem Other and unspecified hyperlipidemia E78.5 Act stephanie confirmed 58928290 Problem Acute atopic conjunctivitis, bilateral H10.13 A ctive confirmed 507723532 ALLERGIES No Known Allergies ENCOUNTERS from 1965 to 2021-07-28 Encounter Location Date Provider Diagnosis [facility] [place] [address] [place] [address] Jul, Aron Ayon Atrial fibrillation I48.91 ; Hypertensiv e heart disease without heart failure I11.9 ; Thyroid function test abnormal R94.6 and Vitamin D deficiency E55.9 IMMUNIZATIONS No Information SOCIAL HISTORY Tobacco Use: [...] Notes Start Da te End Date Status Mometasone Furoate 0.1 % 1 application Externally Onc e a day as needed for UP TO TEN DAYS to dry skin rash for 10 days Jul, Active Urea 40 % 1 application as needed Exte rnally Once a day to toenails as instructed for 30 days February, Not-Takin g Metoprolol Tartrate 50 MG 1 tablet with food Orally Daily Active Urea 20 20 % 1 application as needed Exte rnally Once a day to affected nails for 90 days Mar, Not-Taking Vitamin D 125 MCG (5000 UT) 1 capsule Orally twice a week Not-Taking Polytrim 65292-8.1 UNIT/ML 1 drop into each eye Ophtha lmic Four times a day for 5 days Apr, Not-Taking Diflucan 150 MG 1 tablet Orally Once a week for 30 days Apr, Not-Taking Urea Nail 45 % 1 application as needed to thickened clint ls AT NIGHT for 30 days February, Not-Taking Nystatin 740313 UNIT/GM 1 application Externally Twice a day for 21 days Dec, Not-Taking Aspir-81 81 MG 2 tablet Orally Once a day Active Ciclopirox 8 % 1 application Externally Onc e a day to affected toenails for 30 days Jul, Active Flonase Allergy Relief 50 MCG/ACT 1 spray in each nost ril Nasally Once a day for 30 day(s) Not-Taking Levothyroxine Sodium 50 MCG 1 tablet in the morning on an empty stomach Orally Once a day for 30 Active Amoxicillin 875 MG 1 tablet Orally every 12 hrs for 10 days Dec, Not-Taking Clotrimazole-Betamethasone 1-0.05 % 1 application Exte rnally Twice a day for 5 days Dec, Not-Taking PROCEDURES No Information RESULTS No Results REASON FOR VISIT bloodwork MEDICAL (GENERAL) HISTORY Type Description Date Medical History at [facility], failed ablation-- [facility] cardio Dr Sorenson (limited records). Converted NSR, taken off Eliquis by cardio 02/15, started aspirin Medical History chronic fatigue Medical History ? hypothyroidism-- saw endoc rine 03/15, nl TFTs off TRT, felt to be euthyroid; nl TFT 10/16 Medical History hypogonadism- saw endo 03/15, offered tx/ declined Medical History contaminated well 2015, saw technology auditor [place] 05/15, felt to be w/o evidence of poisoning Medical History all rhinitis Medical History KIKI, on nasal CPAP Medical History TIA Medical History HTN Medical History Vit D defic-- resolved 09/19 Medical History hyperlipidemia-10 yr ASCVD risk 3.7% (6 ) Surgical History cardiac ablation Dr Delta ABDI 03/08/15 Surgical History colonoscopy--tubular adenoma (fragments) 01/16 Hospitalization History at [facility]-- [facility] 10/13/15 Goals Section No Information Health Concerns No Information MEDICAL EQUIPMENT No Information MENTAL STATUS No Information FUNCTIONAL STATUS No Information ASSESSMENTS Encounter Date Diagnosis Assessment Notes Treatment Notes Treatm ent Clinical Notes Jul, Atrial fibrillation (ICD-10 - I48.91) co nverted to NSR, Eliquis d/c 02/15 by cardio Jul, Hypertensive heart disease without heart failure (ICD-10 - I11.9) Jul, Thyroid function test abnormal (ICD-10 - R94.6) Jul, Vitamin D deficiency (ICD-10 - E55.9) PLAN OF TREATMENT Medication Medication Name Sig Start Date Stop Date Mometasone Furoate 0.1 % 1 application Externally Onc e a day as needed for UP TO TEN DAYS to dry skin rash for 10 days Jul, Ciclopirox 8 % 1 application Externally Onc e a day to affected toenails for 30 days Jul, Future Test Test Name Order Date FREE T4 & TSH PANEL [id number] Comprehensive Metabolic Profile (CMP) [id number] VITAMIN D 25-HYDROXY [id number] Next Appt Details Provider Name:Aron Ayon, 2021-07 09:45:00 AM, [address], , [place], [address], Provider Name:Aron Ayon, 2021-08 10:45:00 AM, [address], , [place], [address], Provider Name:Katie Harvey, 09:00:00 AM, [address] [place] [address], , [place], [address], Insurance Providers Payer Name Payer Address Payer Phone Insured Name Patient Relati onship to Insured Coverage Start Date Coverage End Date BCBS [place] MERYL PPO [phone] [facility] [place] [facility] [place] [id number] ESTEVAN OLSEN self
--- OUTSIDE RECORDS SUMMARY | 2021-09-17 08:00 | CCD | Continuity of Care Document ---
Author Author Dyllan BERTRAND MD Organization Unknown Address [address] [place] [address] [address] [place] [address] Phone [phone] Care Team Providers Care Forest Ecology Professor Name Role Phone Aron Ayon M.D. AUTM [phone] AUTM Unavailable Problems Active Problems Provider Date [...] lb BMI (Body Mass Index) 29.6 kg/m2 [place] Body Weight 148 lb Weight 85.730 kg BSA (Body Surface Area) 1.97 m2 04/21/2021 8:42am BP Systolic 118 mmHg BP Diastolic 80 mmHg Heart Rate 70 /min O2 % BldC Oximetry 98 % Room Air Height 67 inches 5'7" Weight 188.00 lb BMI (Body Mass Index) 29.4 kg/m2 [place] Body Weight 148 lb Weight 85.277 kg BSA (Body Surface Area) 1.97 m2 Results Description No Information Available Procedures Date Code Description Status 04/21/2021 65385 Office/Outpatient Established Lo w MDM 20-29 Min Completed Medical Devices Description No Information Available Encounters Type Date Location Provider Dx Diagnosis Office Visit 04/21/2021 8:45a [facility] Lawren[facility] jazmín Hull MD G47.33 Obstructive [...] Aleks Bertrand M.D. ALLERGIC RHINITIS Created [address] [address] [phone]
--- OUTSIDE RECORDS SUMMARY | 2021-09-17 08:00 | CCD | Continuity of Care Document ---
Author Author Dyllan SURESH Organization Unknown Address [address], [place] [address] Phone [phone] Care Team Providers Care Early Childhood Education Coordinator Name Role Phone Aron Ayon MD AUTM [phone] Problems Active Problems Provider Date Allergic rhinitis [...] Ordering Provide r Date Azelastine HCL (Nasal) 137mcg/Mchenry Solution 2 sprays each nostril up to [...] weekly Katie Harvey MPAS RPA-C Saline Mist Mchenry 0.65% Solution 1 spray each nostril three [...] Available Procedures Date Code Description Status 08/27/2021 99147 Allergy Injection 2 Or More Comp leted 08/06/2021 42105 Allergy Injection 2 Or More Comp leted 07/16/2021 96645 Allergy Injection 2 Or More Comp leted 06/18/2021 48698 Allergy Injection 2 Or More Comp leted 05/28/2021 37967 Allergy Injection 2 Or More Comp leted 05/14/2021 23815 Office/Outpatient Established Mo d MDM 30-39 Min Completed 05/05/2021 92234 Allergy Injection 2 Or More Comp leted 04/06/2021 53940 Allergy Injection 2 Or More Comp leted 04/03/2021 53708 Allergy Antigens Single Or Multi ple Completed 03/18/2021 82576 Allergy Injection 2 Or More Comp leted 02/26/2021 51890 Allergy Injection 2 Or More Comp leted Medical Devices Description No Information Available Encounters Type Date Location Provider Dx Diagnosis Office Visit 05/14/2021 9:45a Main Office Jordon Suresh M.D. J30.0 Vasomotor rhinitis J30.1 Allergic rhinitis due to brijesh kristy J30.89 Other allergic rhinitis Assessments Date Code Description Provider 08/27/2021 J30.1 Allergic rhinitis due to pollen Jordon Suresh M.D. 08/27/2021 J30.89 Other allergic rhinitis Jordon Suresh M.D. Plan of Treatment Future Appointment(s):* 11/19/2021 8:45 am - Jordon Suresh M.D. at Main Office 05/14/2021 - Jordon Suresh M.D.* J30.0 Vasomotor rhinitis* New Medication:* Azelastine HCL (Nasal) 137 mcg/Mchenry - 2 sprays each nostril up to [...]
--- OUTSIDE RECORDS SUMMARY | 2021-09-17 08:01 | CCD ---
Author Author [facility] Organization [facility] Address Unknown Phone Unavailable Care Team Providers Care Design Technician Name Role Phone ELVIE SURESH MD Unavailable Unavailable ELVIE SURESH MD Unavailable Unavailable ELVIE SURESH MD Unavailable Unavailable ELVIE SURESH MD Unavailable Unavailable ELVIE SURESH MD Unavailable Unavailable ELVIE SURESH MD Unavailable Unavailable ELVIE SURESH MD Unavailable Unavailable ELVIE SURESH MD Unavailable Unavailable ELVIE SURESH MD Unavailable Unavailable ELVIE SURESH MD Unavailable Unavailable ELVIE SURESH MD Unavailable Unavailable ELVIE SURESH MD Unavailable Unavailable ELVIE SURESH MD Unavailable Unavailable CHROSTELVIE GARRISON MD Unavailable Unavailable CHROSTELVIE GARRISON MD Unavailable Unavailable CHROSTELVIE GARRISON MD Unavailable Unavailable CHROSTELVIE GARRISON MD Unavailable Unavailable CHROSTELVIE GARRISON MD Unavailable Unavailable CHROSTELVIE GARRISON MD Unavailable Unavailable CHROSTOWSKIELVIE MD Unavailable Unavailable CHROSTOWSKIELVIE MD Unavailable Unavailable CHROSTOWSKIELVIE MD Unavailable Unavailable CHROSTOWSKIELVIE MD Unavailable Unavailable CHROSTOWSKIELVIE MD Unavailable Unavailable CHROSTOWSKIELVIE MD Unavailable Unavailable CHROSTOWSKIELVIE MD Unavailable Unavailable CHROSTOWSKIELVIE MD Unavailable Unavailable CHROSTOWSKIELVIE MD Unavailable Unavailable CHROSTOWSKIELVIE MD Unavailable Unavailable CHROSTOWSKIELVIE MD Unavailable Unavailable CHROSTELVIE GARRISON MD Unavailable Unavailable CHROSTELVIE GARRISON MD Unavailable Unavailable CHROSTELVIE GARRISON MD Unavailable Unavailable CHROSTELVIE GARRISON MD Unavailable Unavailable CHROSTELVIE GARRISON MD Unavailable Unavailable CHROSTELVIE GARRISON MD Unavailable Unavailable CHROSTELVIE GARRISON MD Unavailable Unavailable CHROSTELVIE GARRISON MD Unavailable Unavailable CHROSTELVIE GARRISON MD Unavailable Unavailable Eren Hull MD Unavailable [...] Unavailable Unavailable Eren Hull MD Unavailable Unavailable Hull, Eren Rusty MD Unavailable Unavailable Hull, Eren Ojeda MD Unavailable Unavailable Hull, Eren Rusty MD Unavailable Unavailable Hull, Eren Rusty MD Unavailable Unavailable Hull, Eren Ojeda MD Unavailable Unavailable Hull, Eren Rusty MD Unavailable Unavailable Hull, Eren Rusty MD Unavailable Unavailable Hull, Eren Rusty MD Unavailable Unavailable Hull, Eren Rusty MD Unavailable Unavailable Hull, Eren Rusty MD Unavailable Unavailable Hull, Eren Rusty MD Unavailable Unavailable Hull, Eren Rusty MD Unavailable Unavailable Hull, Eren Rusty MD Unavailable Unavailable Hull, Eren Ojeda MD Unavailable Unavailable Hull, Eren Ojeda MD Unavailable Unavailable Hull, Eren Rusty MD Unavailable Unavailable Hull, Eren Rusty MD Unavailable Unavailable Hull, Eren Rusty MD Unavailable Unavailable Hull, Eren Rusty MD Unavailable Unavailable Hull, Eren Rusty MD Unavailable Unavailable Hull, Eren Rusty MD Unavailable Unavailable Jerzy, Jean Fink PH.D., M.D. Unavailable Unavailable Jerzy, Jean Fink PH.D., M.D. Unavailable Unavailable Jerzy, Jean Fink PH.D., M.D. Unavailable Unavailable Jerzy, Jean Fink PH.D., M.D. Unavailable Unavailable Jerzy, Jean Fink PH.D., M.D. Unavailable Unavailable Jerzy, Jean Fink PH.D., M.D. Unavailable Unavailable Jerzy, eJan Fink PH.D., M.D. Unavailable Unavailable Jerzy, Jean Fink PH.D., M.D. Unavailable Unavailable Jerzy, Jean Fink PH.D., M.D. Unavailable Unavailable Jerzy, Jean Fink PH.D., M.D. Unavailable Unavailable Jerzy, Jean Fink PH.D., M.D. Unavailable Unavailable Jerzy, Jean Fink PH.D., M.D. Unavailable Unavailable Jerzy, Jean Fink PH.D., M.D. Unavailable Unavailable Jerzy, Jean Fink PH.D., M.D. Unavailable Unavailable Jerzy, Jean Fink PH.D., M.D. Unavailable Unavailable Jerzy, Jean Fink PH.D., M.D. Unavailable Unavailable Jerzy, Jean Fink PH.D., M.D. Unavailable Unavailable Jerzy, Jean Fink PH.D., M.D. Unavailable Unavailable Jerzy, Jean Fink PH.D., M.D. Unavailable Unavailable Jerzy, Jean Fink PH.D., M.D. Unavailable Unavailable Jerzy, Jean Fink PH.D., M.D. Unavailable Unavailable Jerzy, Jean Fink PH.D., M.D. Unavailable Unavailable Jerzy, Jean Fink PH.D., M.D. Unavailable Unavailable Jerzy, Jean Fink PH.D., M.D. Unavailable Unavailable Jerzy, C Aleks PH.D., M.D. Unavailable Unavailable Jerzy, C Aleks PH.D., M.D. Unavailable Unavailable Jerzy, C Aleks PH.D., M.D. Unavailable Unavailable Jerzy, C Aleks PH.D., M.D. Unavailable Unavailable Jerzy, C Aleks PH.D., M.D. Unavailable Unavailable Jerzy, C Aleks PH.D., M.D. Unavailable Unavailable Jerzy, C Aleks PH.D., M.D. Unavailable Unavailable Jerzy, C Aleks PH.D., M.D. Unavailable Unavailable Jerzy, C Aleks PH.D., M.D. Unavailable Unavailable Jerzy, C Aleks PH.D., M.D. Unavailable Unavailable Jerzy, C Aleks PH.D., M.D. Unavailable Unavailable Jerzy, C Aleks PH.D., M.D. Unavailable Unavailable Jerzy, C Aleks PH.D., M.D. Unavailable Unavailable Jerzy, C Aleks PH.D., M.D. Unavailable Unavailable Jerzy, C Aleks PH.D., M.D. Unavailable Unavailable Jerzy, C Aleks PH.D., M.D. Unavailable Unavailable Jerzy, C Aleks PH.D., M.D. Unavailable Unavailable Jerzy, C Aleks PH.D., M.D. Unavailable Unavailable Jerzy, C Aleks PH.D., M.D. Unavailable Unavailable Jerzy, C Aleks PH.D., M.D. Unavailable Unavailable Jerzy, C Aleks PH.D., M.D. Unavailable Unavailable Jerzy, C Aleks PH.D., M.D. Unavailable Unavailable Jerzy, C Aleks PH.D., M.D. Unavailable Unavailable Jerzy, C Aleks PH.D., M.D. Unavailable Unavailable Jerzy, C Aleks PH.D., M.D. Unavailable Unavailable Jerzy, C Aleks PH.D., M.D. Unavailable Unavailable Jerzy, C Aleks PH.D., M.D. Unavailable Unavailable Jerzy, C Aleks PH.D., M.D. Unavailable Unavailable Jerzy, C Aleks PH.D., M.D. Unavailable Unavailable Jerzy, C Aleks PH.D., M.D. Unavailable Unavailable Jerzy, C Aleks PH.D., M.D. Unavailable Unavailable Jerzy, C Aleks PH.D., M.D. Unavailable Unavailable Jerzy, C Aleks PH.D., M.D. Unavailable Unavailable Jerzy, C Aleks PH.D., M.D. Unavailable Unavailable Jerzy, C Aleks PH.D., M.D. Unavailable Unavailable Jerzy, C Aleks PH.D., M.D. Unavailable Unavailable Jerzy, C Aleks PH.D., M.D. Unavailable Unavailable Jerzy, C Aleks PH.D., M.D. Unavailable Unavailable Jerzy, C Aleks PH.D., M.D. Unavailable Unavailable Jerzy, C Aleks PH.D., M.D. Unavailable Unavailable Jerzy, C Aleks PH.D., M.D. Unavailable Unavailable Jerzy, C Aleks PH.D., M.D. Unavailable Unavailable Jerzy, C Aleks PH.D., M.D. Unavailable Unavailable Jerzy, C Aleks PH.D., M.D. Unavailable Unavailable Jerzy, C Aleks PH.D., M.D. Unavailable Unavailable Jerzy, C Aleks PH.D., M.D. Unavailable Unavailable Jerzy, Jean Fink PH.D., M.D. Unavailable Unavailable Jerzy, Jean Fink PH.D., M.D. Unavailable Unavailable Jerzy, Jean Fink PH.D., M.D. Unavailable Unavailable Jerzy, C Aleks PH.D., M.D. Unavailable Unavailable Jerzy, Jean Fink PH.D., M.D. Unavailable Unavailable Jerzy, Jean Fink PH.D., M.D. Unavailable Unavailable Jerzy, C Aleks PH.D., M.D. Unavailable Unavailable Jerzy, C Aleks PH.D., M.D. Unavailable Unavailable Jerzy, Jean Fink PH.D., M.D. Unavailable Unavailable Jerzy, Jean Fink PH.D., M.D. Unavailable Unavailable Jerzy, C Aleks PH.D., M.D. Unavailable Unavailable Jerzy, C Aleks PH.D., M.D. Unavailable Unavailable Re-disclosure Warning The records that [...] is protected by Article 27-F of the [facility] Public Health law. If you continue you may have access to information: Regarding HIV / AIDS; Provided by facilities licensed or operated by the [facility] Office of Mental Health; or Provided by the [facility] Office for People With Developmental Disabilities. If such information is present, then the following [facility] mandated warning applies: This information has [...] law may result in a fine or fpc sentence or both. A general authorization for the release of medical or other information is NOT sufficient authorization for further disc losure. Family History Family Member Name Family Member Gender Family Member Status Date o f Status Description Data Source(s) Unknown Unknown Problem MEDENT ([facility]) Encounters Encounter Providers Location Date Indications Data Source(s ) Outpatient Attender: Aleks Bertrand PH.D., M.D. Riena/Joseph/Noam vicente/Perla 08/21/2021 10:00:00 AM EDT MEDENT ([facility] Linda romero, RICARDO) Unknown [address] [id number] 08/07/2021 12:00:00 AM EDT eCW1 ([facility]) Outpatient [address] [id number] 08/06/2021 12:00:00 AM EDT eCW1 ([facility]) Outpatient [address] [facility] [place] [address] 07/27/2021 12:00:00 AM EDT eCW1 ([facility]) Unknown [address] [facility] [place] [address] 07/27/2021 12:00:00 AM EDT eCW1 ([facility]) [place] [address] [facility] [address] 05/15/2021 12:00:00 AM EDT eCW1 ([facility]) Outpatient Attender: ELVIE SURESH MD Main Office 05/14/2021 09:45:00 AM EDT [facility] ([facility]) [place]patient [address] [facility] [address] 05/11/2021 12:00:00 AM EDT eCW1 ([facility]) [place] [address] [facility] [address] 05/11/2021 12:00:00 AM EDT eCW1 ([facility]) [place] [address] [facility] [address] 04/30/2021 12:00:00 AM EDT eCW1 ([facility]) Outpatient Attender: Rusty Huang/Joseph/Ambrocio/Darrian blanca 04/21/2021 08:45:00 AM EDT [facility] ([facility]) [place] [address] [facility] [address] 04/16/2021 12:00:00 AM EDT eCW1 ([facility]) Unknown [address] [facility] [address] 04/06/2021 12:00:00 AM EDT eCW1 ([facility]) Unknown [address] [facility] [address] 04/06/2021 12:00:00 AM EDT eCW1 ([facility]) [place] [address] [facility] [address] 03/26/2021 12:00:00 AM EDT eCW1 ([facility]) Outpatient [address] [facility] [address] 03/23/2021 12:00:00 AM EDT eCW1 ([facility]) Outpatient [address] [facility] [address] 03/12/2021 12:00:00 AM EDT eCW1 ([facility]) Unknown [address] [facility] [address] 03/10/2021 12:00:00 AM EDT eCW1 ([facility]) Unknown [address] [facility] [address] 03/03/2021 12:00:00 AM EDT eCW1 ([facility]) Unknown [address] [facility] [address] 01/15/2021 12:00:00 AM EDT eCW1 ([facility]) Unknown [address] [facility] [address] 01/07/2021 12:00:00 AM EST eCW1 ([facility]) Outpatient [address] [facility] [address] 12/22/2020 12:00:00 AM EST eCW1 ([facility]) Unknown [address] [facility] [address] 12/16/2020 12:00:00 AM EST eCW1 ([facility]) Outpatient [address] [facility] [address] 12/04/2020 12:00:00 AM EST eCW1 ([facility]) Unknown [address] [facility] [address] 12/04/2020 12:00:00 AM EST eCW1 ([facility]) Unknown [address] [facility] [place] [address] 11/17/2020 12:00:00 AM EST eCW1 ([facility]) Unknown [address] [facility] [address] 11/17/2020 12:00:00 AM EST eCW1 ([facility]) Unknown [address] [facility] [address] 10/21/2020 12:00:00 AM EST eCW1 ([facility]) Outpatient [address] [facility] [address] 09/11/2020 12:00:00 AM EST eCW1 ([facility]) [place] [address] [facility] [address] 09/09/2020 12:00:00 AM EST eCW1 ([facility]) [place] [address] [facility] [place] [address] 09/05/2020 12:00:00 AM EST eCW1 ([facility]) Unknown [address] [facility] [address] 09/05/2020 12:00:00 AM EST eCW1 ([facility]) Unknown [address] [facility] [place] [address] 08/25/2020 12:00:00 AM EDT eCW1 ([facility]) Unknown [address] [facility] [place] [address] 08/25/2020 12:00:00 AM EDT eCW1 ([facility]) Unknown [address] [facility] [place] [address] 08/18/2020 12:00:00 AM EDT eCW1 ([facility]) Unknown [address] [facility] [address] 08/15/2020 12:00:00 AM EDT eCW1 ([facility]) Medications Medication Brand Name Start Date Product Form Dose Route Admi nistrative Instructions Pharmacy Instructions Status Indications Reaction Description Data Source(s) Allergy Injection 2 Or More 08/27/2021 12:00:00 AM EDT completed [facility] ([facility]) Medication administered onsite 50 mg 08/17/2021 12:00:00 AM EDT tablet extended release 24 hr 30 TAKE ONE TABLET BY MOUTH EVERY DAY TAKE ONE TABLET BY MOUTH EVERY DAY SOLD: 08/24/2021 [facility] Allergy Injection 2 Or More 08/06/2021 12:00:00 AM EDT completed [facility] ([facility]) Medication administered onsite 0.1 % 07/28/2021 12:00:00 AM EDT cream 45 APPLY TO AFFECTED AREA(S) OF DRY SKIN RASH ONCE DAILY NEEDED FOR UP TO 10 DAYS APPLY TO AFFECTED AREA(S) OF DRY SKIN RASH ONCE DAILY NEEDED FOR UP TO 10 DAYS SOLD: 07/29/2021 [facility] 8 % 07/28/2021 12:00:00 AM EDT solution 6 APPLY TO AFFECTED AREA(S) OF TOENAILS ONCE DAILY APPLY TO AFFECTED AREA(S) OF TOENAILS ONCE DAILY SOLD: 07/29/2021 [facility] mometasone furoate 1 MG/ML Topical Cream Mometasone Fu roate 0.1 % Mometasone Furoate 0.1 % 07/27/2021 12:00:00 AM EDT 1.0 {application} active Mometasone Furoate 0.1 % eCW1 ([facility]) ciclopirox 80 MG/ML Topical Solution Ciclopirox 8 % Ciclopir ox 8 % 07/27/2021 12:00:00 AM EDT 1.0 {application} active Ciclopirox 8 % eCW1 ([facility]) ciclopirox 80 MG/ML Topical Solution Ciclopirox 8 % Ciclopir ox 8 % 07/27/2021 12:00:00 AM EDT 1.0 {application} active Ciclopirox 8 % eCW1 ([facility]) ciclopirox 80 MG/ML Topical Solution Ciclopirox 8 % Ciclopir ox 8 % 07/27/2021 12:00:00 AM EDT 1.0 {application} active Ciclopirox 8 % eCW1 ([facility]) mometasone furoate 1 MG/ML Topical Cream Mometasone Fu roate 0.1 % Mometasone Furoate 0.1 % 07/27/2021 12:00:00 AM EDT 1.0 {application} active Mometasone Furoate 0.1 % eCW1 ([facility]) ciclopirox 80 MG/ML Topical Solution Ciclopirox 8 % Ciclopir ox 8 % 07/27/2021 12:00:00 AM EDT 1.0 {application} active Ciclopirox 8 % eCW1 ([facility]) mometasone furoate 1 MG/ML Topical Cream Mometasone Fu roate 0.1 % Mometasone Furoate 0.1 % 07/27/2021 12:00:00 AM EDT 1.0 {application} active Mometasone Furoate 0.1 % eCW1 ([facility]) mometasone furoate 1 MG/ML Topical Cream Mometasone Fu roate 0.1 % Mometasone Furoate 0.1 % 07/27/2021 12:00:00 AM EDT 1.0 {application} active Mometasone Furoate 0.1 % eCW1 ([facility]) 10 mg 07/22/2021 12:00:00 AM EDT tablet 30 TAKE ONE TABLET BY MOUTH EVERY DAY TAKE ONE TABLET BY MOUTH EVERY DAY SOLD: 07/24/2021 [facility] Allergy Injection 2 Or More 07/16/2021 12:00:00 AM EDT completed [facility] ([facility]) Medication administered onsite 150 mg 07/04/2021 12:00:00 AM EDT tablet 4 TAKE ONE TABLET BY MOUTH ONCE WEEKLY INSTRUCTED TAKE ONE TABLET BY MOUTH ONCE WEEKLY INSTRUCTED DOMENICO [facility] Allergy Injection 2 Or More 06/18/2021 12:00:00 AM EDT completed [facility] ([facility]) Medication administered onsite 50 mcg 06/12/2021 12:00:00 AM EDT tablet 30 TAKE ONE TABLET BY MOUTH EVERY MORNING ON EMPTY STOMACH TAKE ONE TABLET BY MOUTH EVERY MORNING O N EMPTY STOMACH SOLD: 07/13/2021 [facility] 50 mcg 06/12/2021 12:00:00 AM EDT tablet 30 TAKE ONE TABLET BY MOUTH EVERY MORNING ON EMPTY STOMACH TAKE ONE TABLET BY MOUTH EVERY MORNING O N EMPTY STOMACH SOLD: 08/13/2021 [facility] 50 mcg 06/12/2021 12:00:00 AM EDT tablet 30 TAKE ONE TABLET BY MOUTH EVERY MORNING ON EMPTY STOMACH TAKE ONE TABLET BY MOUTH EVERY MORNING O N EMPTY STOMACH SOLD: 09/11/2021 [facility] 50 mcg 06/12/2021 12:00:00 AM EDT tablet 30 TAKE ONE TABLET BY MOUTH EVERY MORNING ON EMPTY STOMACH TAKE ONE TABLET BY MOUTH EVERY MORNING O N EMPTY STOMACH SOLD: 06/13/2021 [facility] Allergy Injection 2 Or More 05/28/2021 12:00:00 AM EDT completed [facility] ([facility]) Medication administered onsite 137 mcg (0.1 %) 05/15/2021 12:00:00 AM EDT aerosol,spray 30 SPRAY TWO SPRAYS IN EACH NOSTRIL UP TO TWICE A DAY SPRAY TWO SPRAYS IN EACH NOSTRIL UP TO T WICE A DAY SOLD: 08/03/2021 [facility] 50 mcg 05/15/2021 12:00:00 AM EDT tablet 30 TAKE ONE TABLET BY MOUTH EVERY MORNING ON AN EMPTY STOMACH TAKE ONE TABLET BY MOUTH EVERY MORNING O N AN EMPTY STOMACH SOLD: 05/15/2021 [facility] 137 mcg (0.1 %) 05/15/2021 12:00:00 AM EDT aerosol,spray 30 SPRAY TWO SPRAYS IN EACH NOSTRIL UP TO TWICE A DAY SPRAY TWO SPRAYS IN EACH NOSTRIL UP TO T WICE A DAY SOLD: 05/15/2021 [facility] 137 mcg (0.1 %) 05/15/2021 12:00:00 AM EDT aerosol,spray 30 SPRAY TWO SPRAYS IN EACH NOSTRIL UP TO TWICE A DAY SPRAY TWO SPRAYS IN EACH NOSTRIL UP TO T WICE A DAY SOLD: 06/13/2021 [facility] Azelastine HCL (Nasal) Azelastine HCL (Nasal) 05/14/2021 12:00:00 AM E DT active [facility] ([facility] Polymyxin B 77962 UNT/ML / Trimethoprim 1 MG/ML Ophthalmic Solution [Polytrim] Polytrim 13299-6.1 UNIT/ML Polytrim 47342-8.1 UNIT/ML 05/11/2021 12:00:00 AM EDT suspended Polytrim 22779 -0.1 UNIT/ML eCW1 ([facility]) Polymyxin B 70861 UNT/ML / Trimethoprim 1 MG/ML Ophthalmic Solution [Polytrim] Polytrim 27961-0.1 UNIT/ML Polytrim 83012-7.1 UNIT/ML 05/11/2021 12:00:00 AM EDT active eCW1 ([facility]) Polymyxin B 09315 UNT/ML / Trimethoprim 1 MG/ML Ophthalmic Solution [Polytrim] Polytrim 91912-9.1 UNIT/ML Polytrim 06777-8.1 UNIT/ML 05/11/2021 12:00:00 AM EDT active Polytrim 13333-3. 1 UNIT/ML eCW1 ([facility]) Polymyxin B 44020 UNT/ML / Trimethoprim 1 MG/ML Ophthalmic Solution [Polytrim] Polytrim 72353-3.1 UNIT/ML Polytrim 30492-1.1 UNIT/ML 05/11/2021 12:00:00 AM EDT active Polytrim 00358-2. 1 UNIT/ML eCW1 ([facility]) Polymyxin B 09343 UNT/ML / Trimethoprim 1 MG/ML Ophthalmic Solution 10,000 unit- 1 mg/mL POLYMYXIN B SULF/TRIMETHOPRIM 05/11/2021 12:00:00 AM EDT drops 1 0 INSTILL ONE DROP INTO EACH EYE FOUR TIMES A DAY FOR 5 DAYS INSTILL ONE DROP INTO EACH EYE FOUR TIMES A DAY FOR 5 DAYS SOLD: 05/11/2021 [facility] Allergy Injection 2 Or More 05/05/2021 12:00:00 AM EDT completed [facility] ([facility]) Medication administered onsite 150 mg 04/08/2021 12:00:00 AM EDT tablet 4 TAKE 1 TABLET BY MOUTH WEEKLY DIRECTED TAKE 1 TABLET BY MOUTH WEEKLY DIRECTED SOLD: 04/09/2021 [facility] 150 mg 04/08/2021 12:00:00 AM EDT tablet 4 TAKE 1 TABLET BY MOUTH WEEKLY DIRECTED TAKE 1 TABLET BY MOUTH WEEKLY DIRECTED SOLD: 05/08/2021 [facility] 150 mg 04/08/2021 12:00:00 AM EDT tablet 4 TAKE 1 TABLET BY MOUTH WEEKLY DIRECTED TAKE 1 TABLET BY MOUTH WEEKLY DIRECTED SOLD: 06/07/2021 [facility] Urea 20 20 % Urea 20 20 % 04/06/2021 12:00:00 AM EDT 1 .0 {application_as_needed} active Urea 20 20 % eCW1 ([facility]) Urea 20 20 % Urea 20 20 % 04/06/2021 12:00:00 AM EDT 1 .0 {application_as_needed} active Urea 20 20 % eCW1 ([facility]) Urea 20 20 % Urea 20 20 % 04/06/2021 12:00:00 AM EDT 1 .0 {application_as_needed} active Urea 20 20 % eCW1 ([facility]) Urea 20 20 % Urea 20 20 % 04/06/2021 12:00:00 AM EDT 1 .0 {application_as_needed} active Urea 20 20 % eCW1 ([facility]) Urea 20 20 % Urea 20 20 % 04/06/2021 12:00:00 AM EDT 1 .0 {application_as_needed} active Urea 20 20 % eCW1 ([facility]) Allergy Injection 2 Or More 04/06/2021 12:00:00 AM EDT completed [facility] ([facility]) Medication administered onsite Urea 20 20 % Urea 20 20 % 04/06/2021 12:00:00 AM EDT 1 .0 {application_as_needed} active eCW1 ([facility]) Urea 20 20 % Urea 20 20 % 04/06/2021 12:00:00 AM EDT 1 .0 {application_as_needed} active Urea 20 20 % eCW1 ([facility]) Urea 20 20 % Urea 20 20 % 04/06/2021 12:00:00 AM EDT 1 .0 {application_as_needed} suspended Urea 2 0 20 % eCW1 ([facility]) Urea 400 MG/ML Topical Cream Urea 40 % Urea 40 % 03/27/2021 12:0 0:00 AM EDT 1.0 {application_as_needed} active Urea 40 % eCW1 ([facility]) Urea 400 MG/ML Topical Cream Urea 40 % Urea 40 % 03/27/2021 12:0 0:00 AM EDT 1.0 {application_as_needed} suspended Ur ea 40 % eCW1 ([facility]) Urea 400 MG/ML Topical Cream Urea 40 % Urea 40 % 03/27/2021 12:0 0:00 AM EDT 1.0 {application_as_needed} active Urea 40 % eCW1 ([facility]) Urea 400 MG/ML Topical Cream Urea 40 % Urea 40 % 03/27/2021 12:0 0:00 AM EDT 1.0 {application_as_needed} active Urea 40 % eCW1 ([facility]) Urea 400 MG/ML Topical Cream Urea 40 % Urea 40 % 03/27/2021 12:0 0:00 AM EDT 1.0 {application_as_needed} active Urea 40 % eCW1 ([facility]) Urea 400 MG/ML Topical Cream Urea 40 % Urea 40 % 03/27/2021 12:0 0:00 AM EDT 1.0 {application_as_needed} active Urea 40 % eCW1 ([facility]) Urea 400 MG/ML Topical Cream Urea 40 % Urea 40 % 03/27/2021 12:0 0:00 AM EDT 1.0 {application_as_needed} active Urea 40 % eCW1 ([facility]) Urea 400 MG/ML Topical Cream Urea 40 % Urea 40 % 03/27/2021 12:0 0:00 AM EDT 1.0 {application_as_needed} active Urea 40 % eCW1 ([facility]) Urea 400 MG/ML Topical Cream Urea 40 % Urea 40 % 03/27/2021 12:0 0:00 AM EDT 1.0 {application_as_needed} active eCW1 ([facility]) Urea 0.45 MG/MG Topical Gel Urea Nail 45 % Urea Nail 45 % 03/23/2021 12:00:00 AM EDT 1.0 {application_as_needed} active Urea Nail 45 % eCW1 ([facility]) Urea 0.45 MG/MG Topical Gel Urea Nail 45 % Urea Nail 45 % 03/23/2021 12:00:00 AM EDT 1.0 {application_as_needed} active Urea Nail 45 % eCW1 ([facility]) Urea 0.45 MG/MG Topical Gel Urea Nail 45 % Urea Nail 45 % 03/23/2021 12:00:00 AM EDT 1.0 {application_as_needed} active Urea Nail 45 % eCW1 ([facility]) Urea 0.45 MG/MG Topical Gel Urea Nail 45 % Urea Nail 45 % 03/23/2021 12:00:00 AM EDT 1.0 {application_as_needed} suspended Urea Nail 45 % eCW1 ([facility]) Urea 0.45 MG/MG Topical Gel Urea Nail 45 % Urea Nail 45 % 03/23/2021 12:00:00 AM EDT 1.0 {application_as_needed} active Urea Nail 45 % eCW1 ([facility]) Urea 0.45 MG/MG Topical Gel Urea Nail 45 % Urea Nail 45 % 03/23/2021 12:00:00 AM EDT 1.0 {application_as_needed} active Urea Nail 45 % eCW1 ([facility]) Urea 0.45 MG/MG Topical Gel Urea Nail 45 % Urea Nail 45 % 03/23/2021 12:00:00 AM EDT 1.0 {application_as_needed} active Urea Nail 45 % eCW1 ([facility]) Urea 0.45 MG/MG Topical Gel Urea Nail 45 % Urea Nail 45 % 03/23/2021 12:00:00 AM EDT 1.0 {application_as_needed} active eCW1 ([facility]) Urea 0.45 MG/MG Topical Gel Urea Nail 45 % Urea Nail 45 % 03/23/2021 12:00:00 AM EDT 1.0 {application_as_needed} active Urea Nail 45 % eCW1 ([facility]) Urea 0.45 MG/MG Topical Gel Urea Nail 45 % Urea Nail 45 % 03/23/2021 12:00:00 AM EDT 1.0 {application_as_needed} active Urea Nail 45 % eCW1 ([facility]) Allergy Injection 2 Or More 03/18/2021 12:00:00 AM EDT completed [facility] ([facility] Medication administered onsite 150 mg 03/10/2021 12:00:00 AM EDT tablet 4 TAKE 1 TABLET BY MOUTH ONCE WEEKLY TAKE 1 TABLET BY MOUTH ONCE WEEKLY SOLD: 03/11/2021 [facility] 81 mg 03/03/2021 12:00:00 AM EDT tablet,delayed release (DR/EC) 60 TAKE TWO TABLETS BY MOUTH EVERY DAY TAKE TWO TABLETS BY MOUTH EVERY DAY SOLD: 03/03/2021 [facility] 81 mg 03/03/2021 12:00:00 AM EDT tablet,delayed release (DR/EC) 60 TAKE TWO TABLETS BY MOUTH EVERY DAY TAKE TWO TABLETS BY MOUTH EVERY DAY SOLD: 07/19/2021 [facility] 81 mg 03/03/2021 12:00:00 AM EDT tablet,delayed release (DR/EC) 60 TAKE TWO TABLETS BY MOUTH EVERY DAY TAKE TWO TABLETS BY MOUTH EVERY DAY SOLD: 04/05/2021 [facility] 81 mg 03/03/2021 12:00:00 AM EDT tablet,delayed release (DR/EC) 60 TAKE TWO TABLETS BY MOUTH EVERY DAY TAKE TWO TABLETS BY MOUTH EVERY DAY SOLD: 09/15/2021 [facility] 81 mg 03/03/2021 12:00:00 AM EDT tablet,delayed release (DR/EC) 60 TAKE TWO TABLETS BY MOUTH EVERY DAY TAKE TWO TABLETS BY MOUTH EVERY DAY SOLD: 05/19/2021 [facility] Allergy Injection 2 Or More 02/26/2021 12:00:00 AM EDT completed [facility] ([facility] Medication administered onsite Allergy Injection 2 Or More 02/03/2021 12:00:00 AM EDT completed [facility] ([facility] Medication administered onsite 150 mg 01/16/2021 12:00:00 AM EDT tablet 4 TAKE 1 TABLET BY MOUTH ONCE WEEKLY DIRECTED TAKE 1 TABLET BY MOUTH ONCE WEEKLY DIRECTED SOLD: 01/17/2021 [facility] 150 mg 01/16/2021 12:00:00 AM EDT tablet 4 TAKE 1 TABLET BY MOUTH ONCE WEEKLY DIRECTED TAKE 1 TABLET BY MOUTH ONCE WEEKLY DIRECTED SOLD: 02/12/2021 [facility] Allergy Injection 2 Or More 01/14/2021 12:00:00 AM EDT completed [facility] ([facility] Medication administered onsite Nystatin 395211 UNT/ML Topical Cream Nystatin 618528 U NIT/GM Nystatin 048686 UNIT/GM 01/07/2021 12:00:00 AM EST 1.0 {application} active Nystatin 237500 UNIT/GM eCW1 ([facility]) Nystatin 957692 UNT/ML Topical Cream Nystatin 574234 U NIT/GM Nystatin 501661 UNIT/GM 01/07/2021 12:00:00 AM EST 1.0 {application} suspended Nystatin 750096 UNIT/GM eCW1 ([facility]) Nystatin 117353 UNT/ML Topical Cream Nystatin 639681 U NIT/GM Nystatin 603234 UNIT/GM 01/07/2021 12:00:00 AM EST 1.0 {application} active Nystatin 780958 UNIT/GM eCW1 ([facility]) Nystatin 803531 UNT/ML Topical Cream Nystatin 720350 U NIT/GM Nystatin 685291 UNIT/GM 01/07/2021 12:00:00 AM EST 1.0 {application} active Nystatin 549656 UNIT/GM eCW1 ([facility]) Nystatin 418851 UNT/ML Topical Cream Nystatin 486867 U NIT/GM Nystatin 253182 UNIT/GM 01/07/2021 12:00:00 AM EST 1.0 {application} suspended Nystatin 048266 UNIT/GM eCW1 ([facility]) Nystatin 190303 UNT/ML Topical Cream Nystatin 516988 U NIT/GM Nystatin 009249 UNIT/GM 01/07/2021 12:00:00 AM EST 1.0 {application} suspended Nystatin 368173 UNIT/GM eCW1 ([facility]) Nystatin 317663 UNT/ML Topical Cream Nystatin 273340 U NIT/GM Nystatin 628509 UNIT/GM 01/07/2021 12:00:00 AM EST 1.0 {application} active Nystatin 666009 UNIT/GM eCW1 ([facility]) Nystatin 982178 UNT/ML Topical Cream Nystatin 412437 U NIT/GM Nystatin 898285 UNIT/GM 01/07/2021 12:00:00 AM EST 1.0 {application} suspended Nystatin 427987 UNIT/GM eCW1 ([facility]) Nystatin 598516 UNT/ML Topical Cream Nystatin 904217 U NIT/GM Nystatin 824721 UNIT/GM 01/07/2021 12:00:00 AM EST 1.0 {application} suspended Nystatin 287934 UNIT/GM eCW1 ([facility]) Nystatin 174468 UNT/ML Topical Cream Nystatin 801247 U NIT/GM Nystatin 488464 UNIT/GM 01/07/2021 12:00:00 AM EST 1.0 {application} suspended Nystatin 274858 UNIT/GM eCW1 ([facility]) Nystatin 557676 UNT/ML Topical Cream Nystatin 515691 U NIT/GM Nystatin 875711 UNIT/GM 01/07/2021 12:00:00 AM EST 1.0 {application} suspended Nystatin 397304 UNIT/GM eCW1 ([facility]) Nystatin 726628 UNT/ML Topical Cream Nystatin 710424 U NIT/GM Nystatin 510035 UNIT/GM 01/07/2021 12:00:00 AM EST 1.0 {application} suspended Nystatin 360965 UNIT/GM eCW1 ([facility]) 100,000 unit/gram 01/07/2021 12:00:00 AM EST cream 30 APPLY TO AFFECTED AREA(S) TWO TIMES A DAY FOR 21 DAYS APPLY TO AFFECTED AREA(S) TWO TIMES A DA Y FOR 21 DAYS SOLD: 01/10/2021 [facility] Nystatin 203807 UNT/ML Topical Cream Nystatin 176406 U NIT/GM Nystatin 994279 UNIT/GM 01/07/2021 12:00:00 AM EST 1.0 {application} mayra pended eCW1 ([facility]) Nystatin 033404 UNT/ML Topical Cream Nystatin 021854 U NIT/GM Nystatin 920896 UNIT/GM 01/07/2021 12:00:00 AM EST 1.0 {application} suspended Nystatin 429218 UNIT/GM eCW1 ([facility]) Nystatin 366216 UNT/ML Topical Cream Nystatin 570078 U NIT/GM Nystatin 864871 UNIT/GM 01/07/2021 12:00:00 AM EST 1.0 {application} suspended Nystatin 533164 UNIT/GM eCW1 ([facility]) 1-0.05 % 01/07/2021 12:00:00 AM EST cream 15 APPLY TO AFFECTED AREA(S) TWO TIMES A DAY FOR 5 DAYS APPLY TO AFFECTED AREA(S) TWO TIMES A DAY FOR 5 DAYS SOLD: 01/10/2021 [facility] Betamethasone 0.5 MG/ML / Clotrimazole 1 0 MG/ML Topical Cream Clotrimazole- Betamethasone 1-0.05 % Clotrimazole-Betamethasone 1-0.05 % 12/22/2020 12:00:0 0 AM EST 1.0 {application} suspended Clotrimazole-Betamethasone 1-0.05 % eCW1 ([facility]) Betamethasone 0.5 MG/ML / Clotrimazole 1 0 MG/ML Topical Cream Clotrimazole- Betamethasone 1-0.05 % Clotrimazole-Betamethasone 1-0.05 % 12/22/2020 12:00:0 0 AM EST 1.0 {application} active Clotri mazole-Betamethasone 1-0.05 % eCW1 ([facility]) Betamethasone 0.5 MG/ML / Clotrimazole 1 0 MG/ML Topical Cream Clotrimazole- Betamethasone 1-0.05 % Clotrimazole-Betamethasone 1-0.05 % 12/22/2020 12:00:0 0 AM EST 1.0 {application} suspended Clotrimazole-Betamethasone 1-0.05 % eCW1 ([facility]) Betamethasone 0.5 MG/ML / Clotrimazole 1 0 MG/ML Topical Cream Clotrimazole- Betamethasone 1-0.05 % Clotrimazole-Betamethasone 1-0.05 % 12/22/2020 12:00:0 0 AM EST 1.0 {application} suspended Clotrimazole-Betamethasone 1-0.05 % eCW1 ([facility]) Betamethasone 0.5 MG/ML / Clotrimazole 1 0 MG/ML Topical Cream Clotrimazole- Betamethasone 1-0.05 % Clotrimazole-Betamethasone 1-0.05 % 12/22/2020 12:00:0 0 AM EST 1.0 {application} suspended Clotrimazole-Betamethasone 1-0.05 % eCW1 ([facility]) Betamethasone 0.5 MG/ML / Clotrimazole 1 0 MG/ML Topical Cream Clotrimazole- Betamethasone 1-0.05 % Clotrimazole-Betamethasone 1-0.05 % 12/22/2020 12:00:0 0 AM EST 1.0 {application} suspended Clotrimazole-Betamethasone 1-0.05 % eCW1 ([facility]) Betamethasone 0.5 MG/ML / Clotrimazole 1 0 MG/ML Topical Cream Clotrimazole- Betamethasone 1-0.05 % Clotrimazole-Betamethasone 1-0.05 % 12/22/2020 12:00:0 0 AM EST 1.0 {application} active Clotri mazole-Betamethasone 1-0.05 % eCW1 ([facility]) Betamethasone 0.5 MG/ML / Clotrimazole 1 0 MG/ML Topical Cream Clotrimazole- Betamethasone 1-0.05 % Clotrimazole-Betamethasone 1-0.05 % 12/22/2020 12:00:0 0 AM EST 1.0 {application} active Clotri mazole-Betamethasone 1-0.05 % eCW1 ([facility]) Betamethasone 0.5 MG/ML / Clotrimazole 1 0 MG/ML Topical Cream Clotrimazole- Betamethasone 1-0.05 % Clotrimazole-Betamethasone 1-0.05 % 12/22/2020 12:00:0 0 AM EST 1.0 {application} suspended Clotrimazole-Betamethasone 1-0.05 % eCW1 ([facility]) Betamethasone 0.5 MG/ML / Clotrimazole 1 0 MG/ML Topical Cream Clotrimazole- Betamethasone 1-0.05 % Clotrimazole-Betamethasone 1-0.05 % 12/22/2020 12:00:0 0 AM EST 1.0 {application} suspended Clotrimazole-Betamethasone 1-0.05 % eCW1 ([facility]) Betamethasone 0.5 MG/ML / Clotrimazole 1 0 MG/ML Topical Cream Clotrimazole- Betamethasone 1-0.05 % Clotrimazole-Betamethasone 1-0.05 % 12/22/2020 12:00:0 0 AM EST 1.0 {application} active Clotri mazole-Betamethasone 1-0.05 % eCW1 ([facility]) Allergy Injection 2 Or More 12/22/2020 12:00:00 AM EST completed [facility] ([facility]) Medication administered onsite Betamethasone 0.5 MG/ML / Clotrimazole 1 0 MG/ML Topical Cream Clotrimazole- Betamethasone 1-0.05 % Clotrimazole-Betamethasone 1-0.05 % 12/22/2020 12:00:0 0 AM EST 1.0 {application} suspended Clotrimazole-Betamethasone 1-0.05 % eCW1 ([facility]) Betamethasone 0.5 MG/ML / Clotrimazole 1 0 MG/ML Topical Cream Clotrimazole- Betamethasone 1-0.05 % Clotrimazole-Betamethasone 1-0.05 % 12/22/2020 12:00:0 0 AM EST 1.0 {application} active Clotri mazole-Betamethasone 1-0.05 % eCW1 ([facility]) Betamethasone 0.5 MG/ML / Clotrimazole 1 0 MG/ML Topical Cream Clotrimazole- Betamethasone 1-0.05 % Clotrimazole-Betamethasone 1-0.05 % 12/22/2020 12:00:0 0 AM EST 1.0 {application} suspended eCW1 ([facility]) 1-0.05 % 12/22/2020 12:00:00 AM EST cream 15 APPLY TWO TIMES A DAY FOR 5 DAYS APPLY TWO TIMES A DAY FOR 5 DAYS SOLD: 12/22/2020 [facility] Betamethasone 0.5 MG/ML / Clotrimazole 1 0 MG/ML Topical Cream Clotrimazole- Betamethasone 1-0.05 % Clotrimazole-Betamethasone 1-0.05 % 12/22/2020 12:00:0 0 AM EST 1.0 {application} suspended Clotrimazole-Betamethasone 1-0.05 % eCW1 ([facility]) Betamethasone 0.5 MG/ML / Clotrimazole 1 0 MG/ML Topical Cream Clotrimazole- Betamethasone 1-0.05 % Clotrimazole-Betamethasone 1-0.05 % 12/22/2020 12:00:0 0 AM EST 1.0 {application} suspended Clotrimazole-Betamethasone 1-0.05 % eCW1 ([facility]) 150 mg 12/16/2020 12:00:00 AM EST tablet 4 TAKE ONE TABLET BY MOUTH ONCE A WEEK TAKE ONE TABLET BY MOUTH ONCE A WEEK SOLD: 12/17/2020 [facility] Amoxicillin 875 MG Oral Tablet Amoxicillin 875 MG 12/05/2020 12:00: 00 AM EST 1.0 {tablet} suspended Amoxicillin 875 M G eCW1 ([facility]) Amoxicillin 875 MG Oral Tablet Amoxicillin 875 MG 12/05/2020 12:00: 00 AM EST 1.0 {tablet} active Amoxicillin 875 MG eCW1 ([facility]) Amoxicillin 875 MG Oral Tablet Amoxicillin 875 MG 12/05/2020 12:00: 00 AM EST 1.0 {tablet} suspended Amoxicillin 875 M G eCW1 ([facility]) Amoxicillin 875 MG Oral Tablet Amoxicillin 875 MG 12/05/2020 12:00: 00 AM EST 1.0 {tablet} suspended Amoxicillin 875 M G eCW1 ([facility]) Amoxicillin 875 MG Oral Tablet Amoxicillin 875 MG 12/05/2020 12:00: 00 AM EST 1.0 {tablet} suspended eCW1 ([facility]) Amoxicillin 875 MG Oral Tablet Amoxicillin 875 MG 12/05/2020 12:00: 00 AM EST 1.0 {tablet} active Amoxicillin 875 MG eCW1 ([facility]) Amoxicillin 875 MG Oral Tablet Amoxicillin 875 MG 12/05/2020 12:00: 00 AM EST 1.0 {tablet} suspended Amoxicillin 875 M G eCW1 ([facility]) Amoxicillin 875 MG Oral Tablet Amoxicillin 875 MG 12/05/2020 12:00: 00 AM EST 1.0 {tablet} suspended Amoxicillin 875 M G eCW1 ([facility]) Amoxicillin 875 MG Oral Tablet Amoxicillin 875 MG 12/05/2020 12:00: 00 AM EST 1.0 {tablet} suspended Amoxicillin 875 M G eCW1 ([facility]) Amoxicillin 875 MG Oral Tablet Amoxicillin 875 MG 12/05/2020 12:00: 00 AM EST 1.0 {tablet} active Amoxicillin 875 MG eCW1 ([facility]) Amoxicillin 875 MG Oral Tablet Amoxicillin 875 MG 12/05/2020 12:00: 00 AM EST 1.0 {tablet} active Amoxicillin 875 MG eCW1 ([facility]) Amoxicillin 875 MG Oral Tablet Amoxicillin 875 MG 12/05/2020 12:00: 00 AM EST 1.0 {tablet} active Amoxicillin 875 MG eCW1 ([facility]) Amoxicillin 875 MG Oral Tablet Amoxicillin 875 MG 12/05/2020 12:00: 00 AM EST 1.0 {tablet} suspended Amoxicillin 875 M G eCW1 ([facility]) Amoxicillin 875 MG Oral Tablet Amoxicillin 875 MG 12/05/2020 12:00: 00 AM EST 1.0 {tablet} active Amoxicillin 875 MG [facility] ([facility]) 875 mg 12/05/2020 12:00:00 AM EST tablet 20 TAKE ONE TABLET BY MOUTH EVERY 12 HOURS TAKE ONE TABLET BY MOUTH EVERY 12 HOURS SOLD: 12/05/2020 [facility] Amoxicillin 875 MG Oral Tablet Amoxicillin 875 MG 12/05/2020 12:00: 00 AM EST 1.0 {tablet} suspended Amoxicillin 875 M G eCW1 ([facility]) Amoxicillin 875 MG Oral Tablet Amoxicillin 875 MG 12/05/2020 12:00: 00 AM EST 1.0 {tablet} active Amoxicillin 875 MG eC1 ([facility]) Amoxicillin 875 MG Oral Tablet Amoxicillin 875 MG 12/05/2020 12:00: 00 AM EST 1.0 {tablet} suspended Amoxicillin 875 M G eCW1 ([facility]) Amoxicillin 875 MG Oral Tablet Amoxicillin 875 MG 12/05/2020 12:00: 00 AM EST 1.0 {tablet} active Amoxicillin [address] [facility] ([facility]) Amoxicillin 875 MG Oral Tablet Amoxicillin 875 MG 12/05/2020 12:00: 00 AM EST 1.0 {tablet} suspended Amoxicillin [address] [facility] ([facility]) Allergy Injection 2 Or More 12/03/2020 12:00:00 AM EST completed [facility] ([facility] Medication administered onsite 150 mg 11/19/2020 12:00:00 AM EST tablet 4 TAKE ONE TABLET BY MOUTH ONCE WEEKLY DIRECTED TAKE ONE TABLET BY MOUTH ONCE WEEKLY DIRECTED SOLD: 11/19/2020 [facility] 50 mcg 11/18/2020 12:00:00 AM EST tablet 30 TAKE ONE TABLET BY MOUTH EVERY MORNING ON AN EMPTY STOMACH TAKE ONE TABLET BY MOUTH EVERY MORNING O N AN EMPTY STOMACH SOLD: 02/16/2021 [facility] 50 mcg 11/18/2020 12:00:00 AM EST tablet 30 TAKE ONE TABLET BY MOUTH EVERY MORNING ON AN EMPTY STOMACH TAKE ONE TABLET BY MOUTH EVERY MORNING O N AN EMPTY STOMACH SOLD: 01/17/2021 [facility] 50 mcg 11/18/2020 12:00:00 [...] MORNING O N AN EMPTY STOMACH SOLD: 04/17/2021 [facility] 50 mcg 11/18/2020 12:00:00 AM EST tablet 30 TAKE ONE TABLET BY MOUTH EVERY MORNING ON AN EMPTY STOMACH TAKE ONE TABLET BY MOUTH EVERY MORNING O N AN EMPTY STOMACH SOLD: 11/18/2020 [facility] 50 mcg 11/18/2020 12:00:00 AM EST tablet 30 TAKE ONE TABLET BY MOUTH EVERY MORNING ON AN EMPTY STOMACH TAKE ONE TABLET BY MOUTH EVERY MORNING O N AN EMPTY STOMACH SOLD: 03/17/2021 [facility] Allergy Injection 2 Or More 11/11/2020 12:00:00 AM EST completed [facility] ([facility] Medication administered onsite 150 mg 10/21/2020 12:00:00 AM EST tablet 4 TAKE ONE TABLET BY MOUTH EVERY WEEK DIRECTED TAKE ONE TABLET BY MOUTH EVERY WEEK DIRECTED SOLD: 10/23/2020 [facility] Allergy Injection 2 Or More 10/21/2020 12:00:00 AM EST completed [facility] ([facility]) Medication administered onsite Magnesium Hydroxide 80 MG/ML Oral Suspension Milk Of Magnesi a 10/09/2020 12:00:00 AM EST ORAL active M [facility]ENT ([facility] ) Clenpiq Clenpiq 10/09/2020 12:00:00 AM EST active [facility] ([facility] ) 10 mg-3.5 gram -12 gram/160 mL 10/09/2020 12:00:00 AM EST so lution 320 TAKE DIRECTED PER [employer] INSTRUCTIONS TAKE DIRECTED PER [employer] INSTRUCTIONS SOLD: 10/18/2020 [facility] Allergy Injection 2 Or More 09/30/2020 12:00:00 [...] 1.0 {tablet} active Diflucan 150 MG eCW1 ([facility]) Fluconazole 150 MG Oral Tablet [Diflucan] Diflucan 150 MG Di flucan 150 MG 09/05/2020 12:00:00 AM EST 1.0 {tablet} active Diflucan 150 MG eCW1 ([facility]) Fluconazole 150 MG Oral Tablet [Diflucan] Diflucan 150 MG Di flucan 150 MG 09/05/2020 12:00:00 AM EST 1.0 {tablet} active Diflucan 150 MG eCW1 ([facility]) Fluconazole 150 MG Oral Tablet [Diflucan] Diflucan 150 MG Di flucan 150 MG 09/05/2020 12:00:00 AM EST 1.0 {tablet} active Diflucan 150 MG eCW1 ([facility]) Fluconazole 150 MG Oral Tablet [Diflucan] Diflucan 150 MG Di flucan 150 MG 09/05/2020 12:00:00 AM EST 1.0 {tablet} active Diflucan 150 MG eCW1 ([facility]) Fluconazole 150 MG Oral Tablet [Diflucan] Diflucan 150 MG Di flucan 150 MG 09/05/2020 12:00:00 AM EST 1.0 {tablet} active Diflucan 150 MG eCW1 ([facility]) Fluconazole 150 MG Oral Tablet [Diflucan] Diflucan 150 MG Di flucan 150 MG 09/05/2020 12:00:00 AM EST 1.0 {tablet} active Diflucan 150 MG eCW1 ([facility]) 150 mg 08/25/2020 12:00:00 AM EDT tablet 4 TAKE ONE TABLET BY MOUTH ONCE A WEEK TAKE ONE TABLET BY MOUTH ONCE A WEEK SOLD: 2020 [facility] Allergy Injection 2 Or More 08/21/2020 12:00:00 AM EDT completed [facility] ([facility]) Medication administered onsite 50 mg 08/16/2020 12:00:00 AM EDT tablet extended release 24 hr 30 TAKE ONE TABLET BY MOUTH EVERY DAY TAKE ONE TABLET BY MOUTH EVERY DAY SOLD: 04/24/2021 [facility] 50 mg 08/16/2020 12:00:00 AM EDT tablet extended release 24 hr 30 TAKE ONE TABLET BY MOUTH EVERY DAY TAKE ONE TABLET BY MOUTH EVERY DAY SOLD: 12/24/2020 [facility] 50 mg 08/16/2020 12:00:00 AM EDT tablet extended release 24 hr 30 TAKE ONE TABLET BY MOUTH EVERY DAY TAKE ONE TABLET BY MOUTH EVERY DAY SOLD: 01/23/2021 [facility] 50 mg 08/16/2020 12:00:00 AM EDT tablet extended release 24 hr 30 TAKE ONE TABLET BY MOUTH EVERY DAY TAKE ONE TABLET BY MOUTH EVERY DAY SOLD: 05/25/2021 [facility] 50 mg 08/16/2020 12:00:00 AM EDT tablet extended release 24 hr 30 TAKE ONE TABLET BY MOUTH EVERY DAY TAKE ONE TABLET BY MOUTH EVERY DAY SOLD: 02/23/2021 [facility] 50 mg 08/16/2020 12:00:00 AM EDT tablet extended release 24 hr 30 TAKE ONE TABLET BY MOUTH EVERY DAY TAKE ONE TABLET BY MOUTH EVERY DAY SOLD: 10/26/2020 [facility] 50 mg 08/16/2020 12:00:00 AM EDT tablet extended release 24 hr 30 TAKE ONE TABLET BY MOUTH EVERY DAY TAKE ONE TABLET BY MOUTH EVERY DAY SOLD: 06/24/2021 [facility] 50 mg 08/16/2020 12:00:00 AM [...] MOUTH EVERY DAY SOLD: 09/24/2020 [facility] 50 mg 08/16/2020 12:00:00 AM EDT tablet extended release 24 hr 30 TAKE ONE TABLET BY MOUTH EVERY DAY TAKE ONE TABLET BY MOUTH EVERY DAY SOLD: 07/26/2021 [facility] 50 mg 08/16/2020 12:00:00 AM EDT tablet extended release 24 hr 30 TAKE ONE TABLET BY MOUTH EVERY DAY TAKE ONE TABLET BY MOUTH EVERY DAY SOLD: 03/26/2021 [facility] levocetirizine dihydrochloride 5 MG Oral Tablet Levocetirizi ne Dihydrochloride 08/13/2020 12:00:00 AM EDT active [facility] ([facility]) Allergy Injection 2 Or More 07/31/2020 12:00:00 AM EDT completed [facility] ([facility] Medication administered onsite Allergy Injection 2 Or More 07/31/2020 12:00:00 AM EDT completed [facility] ([facility] Medication administered onsite 50 mcg 05/22/2020 12:00:00 [...] ON EMPTY STOMACH SOLD: 09/18/2020 [facility] 50 mcg 05/22/2020 12:00:00 AM EDT tablet 30 TAKE 1 TABLET BY MOUTH ONCE DAILY IN THE MORNING ON EMPTY STOMACH TAKE 1 TABLET BY MOUTH ONCE DAILY IN THE MORNING ON EMPTY STOMACH SOLD: 08/19/2020 [facility] 150 mg 05/08/2020 12:00:00 AM EDT tablet 4 TAKE ONE TABLET BY MOUTH ONCE WEEKLY TAKE ONE TABLET BY MOUTH ONCE WEEKLY SOLD: 07/29/2020 [facility] 81 mg 03/01/2020 12:00:00 AM EDT tablet,delayed release (DR/EC) 60 TAKE TWO TABLETS BY MOUTH EVERY DAY TAKE TWO TABLETS BY MOUTH EVERY DAY SOLD: 11/29/2020 [facility] 81 mg 03/01/2020 12:00:00 AM EDT tablet,delayed release (DR/EC) 60 TAKE TWO TABLETS BY MOUTH EVERY DAY TAKE TWO TABLETS BY MOUTH EVERY DAY SOLD: 12/30/2020 [facility] 81 mg 03/01/2020 12:00:00 AM [...] TWO TABLETS BY MOUTH EVERY DAY SOLD: 01/29/2021 [facility] 81 mg 03/01/2020 12:00:00 AM EDT tablet,delayed release (DR/EC) 60 TAKE TWO TABLETS BY MOUTH EVERY DAY TAKE TWO TABLETS BY MOUTH EVERY DAY SOLD: 08/01/2020 [facility] 25 mg 08/21/2019 12:00:00 AM EDT tablet extended release 24 hr 30 TAKE ONE TABLET BY MOUTH EVERY DAY TAKE ONE TABLET BY MOUTH EVERY DAY SOLD: 08/09/2020 [facility] Insurance Providers Payer name Policy type / Coverage type Policy ID Covered alliance party ID Covered alliance party's relationship to solomon Policy Solomon Plan Information [facility] Commercial [id number] Self [facility] [id number] Self [id number] [facility] [[email or web address] Commercial [id number] Self [place] O 302/307 [id number] SP [id number] [facility] Health Maintenance Organization (O) [id number] Self [id number] [facility] Health Maintenance Organization (O) [id number] Self [id number] [facility] [place] O 302/307 [id number] SP [id number] [facility] Health Maintenance Organization (O) [id number] Self [id number] [facility] Health Maintenance Organization (HMO) [id number] Self [id number] [facility] Health Maintenance Organization (O) [id number] Self [id number] [facility] Commercial [id number] [facility] [id number] ANSI-Commercial [id number] ANSI-Commercial [id number] [employer] [place] PPO 302/307 [id number] SP [id number] [employer] [place] PPO 302/307 [id number] SP [id number] [place] 305/805 [id number] SP [id number] BLUE CROSS BLUE SHIELD-O/P [id number] 18 [id number] BLUE CROSS O [id number] S [id number] [employer] [place] PPO 302/307 [id number] SP [id number] [employer] [place] PPO 302/307 [id number] SP [id number] [employer] [id number] [employer] [id number] BCBS [id number] Blue [employer] Shield [id number] [employer] [id number] BCBS/[employer] Commercial [id number] Self [id number] ANSI-Commercial [id number] ANSI-Commercial [id number] ANSI-Commercial [id number] ANSI-Commercial [id number] Problems, Conditions, and Diagnoses Code Display Name Description Problem Type Effective Dates Data Source(s) J34.3 Hypertrophy of nasal turbinates Hypertrophy of nasal t urbinates Problem 08/21/2021 12:00:00 AM EDT [facility] ([facility]) Surgeries/Procedures Procedure Description Date Indications Data Source(s) PREPJ& ALLERGEN IMMUNOTHERAPY 1/FRESH [employer] TECHNICIAN ANTIGEN 08/28/2021 12:00:00 AM EDT [facility] ([facility]) PROF CHARLES ALLG IMMNTX X W/PRV ALLGIC XTRCS NJXS 2020 12:00:00 AM EDT [facility] ([facility]) Endoscopy Nasal Diagnostic 08/21/2021 12:00:00 AM EDT [facility] ([facility]) OFFICE OUTPATIENT NEW 30 MINUTES 08/21/2021 12:00:00 A M EDT [facility] ([facility]) PROF ARACELI GHOSH IMMNTX X W/PRV ALLGIC XTRCS NJXS 2020 12:00:00 AM EDT [facility] ([facility]) PROF CHARLES ALLG IMMNTX X W/PRV ALLGIC XTRCS NJXS 2020 12:00:00 AM EDT [facility] ([facility]) PROF ARACELI ALLG IMMNTX X W/PRV ALLGIC XTRCS NJXS 2020 12:00:00 AM EDT [facility] ([facility]) PROF HANNA ALLG IMMNTX X W/PRV ALLGIC XTRCS NJXS 2020 12:00:00 AM EDT [facility] ([facility]) OFFICE OUTPATIENT VISIT 25 MINUTES 05/14/2021 12:00:00 AM EDT [facility] ([facility]) PROF ARACELI ALLG IMMNTX X W/PRV ALLGIC XTRCS NJXS 2020 12:00:00 AM EDT [facility] ([facility] [facility]) OFFICE OUTPATIENT VISIT 15 MINUTES 04/21/2021 12:00:00 AM EDT MEDENT ([facility], ) PROF HANNA ALLG IMMNTX X W/PRV ALLGIC XTRCS NJXS 2020 12:00:00 AM EDT [facility] ([facility]) PREPJ& ALLERGEN IMMUNOTHERAPY 1/FRESH 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 ANTIGEN 04/03/2021 12:00:00 AM EDT [facility] ([facility] PROF HANNA ALLG IMMNTX X W/PRV ALLGIC XTRCS NJXS 2020 12:00:00 AM EDT [facility] ([facility] PROF HANNA ALLG IMMNTX X W/PRV ALLGIC XTRCS NJXS 2020 12:00:00 AM EDT [facility] ([facility] PROF FERREIRA ALLG IMMNTX X W/PRV ALLGIC XTRCS NJXS 2020 12:00:00 AM EDT [facility] ([facility] PROF CHARLES ALLG IMMNTX X W/PRV ALLGIC XTRCS NJXS 2020 12:00:00 AM EDT [facility] ([facility]) Colonoscopy Flexible Proximal To Splenic Flexure W/Biopsy Si ngle/ 12/23/2020 12:00:00 AM EST MEDENT ([facility], ) Colonoscopy W/ Poly 12/23/2020 12:00:00 AM EST MEDENT ([facility], ) PROF FERREIRA ALLG IMMNTX X W/PRV ALLGIC XTRCS NJXS 2020 12:00:00 AM EST [facility] ([facility] PROF HANNA ALLG IMMNTX X W/PRV ALLGIC XTRCS NJXS 2020 12:00:00 AM EST [facility] ([facility] PROF FERREIRA ALLG IMMNTX X W/PRV ALLGIC XTRCS NJXS 2020 12:00:00 AM EST [facility] ([facility] PROF FERREIRA ALLG IMMNTX X W/PRV ALLGIC XTRCS NJXS 2019 12:00:00 AM EST [facility] ([facility] PROF HANNA ALLG IMMNTX X W/PRV ALLGIC XTRCS NJXS 2019 12:00:00 AM EST MED[facility] ([facility]) PREPJ& ALLERGEN IMMUNOTHERAPY 1/FRESH FOODS TECHNICIAN ANTIGEN 09/19/2020 12:00:00 AM EST MED[facility] ([facility] PROF FERREIRA ALLG IMMNTX X W/PRV ALLGIC XTRCS NJXS 2019 12:00:00 AM EST [facility] ([facility] ALLG IMMNTX X W/PRV ALLGIC XTRCS NJXS 2019 12:00:00 AM EDT MED[facility] ([facility] PROF FERREIRA ALLG IMMNTX X W/PRV ALLGIC XTRCS NJXS 2019 12:00:00 AM EDT MED[facility] ([facility] PROF FERREIRA ALLG IMMNTX X W/PRV ALLGIC XTRCS NJXS 2019 12:00:00 AM EDT MED[facility] ([facility] Results ID Date Data Source VITAMIN D 25-HYDROXY 03/12/2021 12:00:00 AM EDT eCW1 ([facility]) Name Value Range Interpretation Code Description Data Kym rce(s) Supporting Document(s) 42.3 30.0-100.0 TOTAL 25(OH) VITAMIN D eC W1 ([facility]) ID Date Data Source [id number] 12/23/2020 02:33:00 PM EST MEDENT ([facility], ) Name Value Range Interpretation Code Description Data Kym rce(s) Supporting Document(s) Surgical pathology study Laboratory test result MEDENT ([facility], ) FINAL DIAGNOSIS A - Colon, ascending polyps, polypectomy: Fragments of tubular adenoma. B - Colon, random, biopsies: Colonic mucosa with nonspecific chronic inflammation and lamina propria edema. No evidence for microscopic colitis. 12/25/2020 - 114 CLINICAL DIAGNOSIS Colon polyps 12/24/2020 - 1024 GROSS DIAGNOSIS A - Received in formalin labeled "polyps @ ascending colon" consists of multiple fragments of sierra tissue measuring 0.8 x 0.5 x 0.3 cm in aggregate. All in one. B - Received in formalin labeled "random colon biopsy" consists of fragments of sierra tissue measuring 0.3 x 0.3 x 0.3 cm in aggregate. All in one. -SV 12/24/2020 - 1024 Signed GARETH TAPIA MD 12/25/2020 1236 ID Date Data Source [id number] 12/19/2020 01:00:00 PM EST [facility] Name Value Range Interpretation Code Description Data Kym rce(s) Supporting Document(s) SARS coronavirus 2 RNA Not Detected [facility] [place] This lab was ordered by [facility] and reported by [facility]. ID Date Data Source [id number] 12/04/2020 01:52:00 PM EST [facility] Name Value Range Interpretation Code Description Data Kym rce(s) Supporting Document(s) SARS coronavirus 2 RNA Not Detected [facility] [place] This lab was ordered by [facility] and reported by [facility]. ID Date Data Source [id number] 12/04/2020 12:58:00 PM EST [facility] Name Value Range Interpretation Code Description Data Kym rce(s) Supporting Document(s) SARS COVID ANTIGEN NEGATIVE [facility] This lab was ordered by [facility] reported by [facility]. ID Date Data Source Coronavirus 2019 Nasopharygeal (Send Out) COVID 12/04/2020 1 2:00:00 AM EST eCW1 ([facility]) Name Value Range Interpretation Code Description Data Kym rce(s) Supporting Document(s) This nucleic acid amplification test was developed and its CORONAVIRUS 2019 NASOPHARYGEAL eCW1 ([facility]) ID Date Data Source Comprehensive Metabolic Profile (CMP) 09/08/2020 04:20:33 AM EST eCW1 ([facility]) Name Value Range Interpretation Code Description Data Kym rce(s) Supporting Document(s) 95 GLUCOSE, FASTING eCW1 ([facility]) 17 BLOOD UREA NITROGEN eCW1 ([facility]) 1.00 CREATININE FOR GFR eCW1 ([facility] hospital) 141 SODIUM LEVEL eCW1 ([facility]) > 60.0 GLOMERULAR FILTRATION RATE eCW 1 ([facility]) 4.5 POTASSIUM SERUM eCW1 ([facility]) 107 CHLORIDE LEVEL eCW1 ([facility]) 22 AST/SGOT eCW1 ([facility]) 31 CARBON DIOXIDE LEVEL eCW1 ([facility]) 9.2 CALCIUM LEVEL eCW1 ([facility]) 0.7 BILIRUBIN,TOTAL eCW1 ([facility]) 7.0 TOTAL PROTEIN eCW1 ([facility]) 45 ALT/SGPT eCW1 ([facility]) 71 ALKALINE PHOSPHATASE eCW1 ([facility]) 1.2 ALBUMIN/GLOBULIN RATIO eCW1 ([facility]) 3.8 ALBUMIN eCW1 ([facility]) ID Date Data Source CBC - Complete Blood Count 09/08/2020 03:10:42 AM EST eCW1 ( [facility]) Name Value Range Interpretation Code Description Data Kym rce(s) Supporting Document(s) 5.8 WHITE BLOOD COUNT eCW1 ([facility]) 5.59 RED BLOOD COUNT eCW1 ([facility]) 16.3 HEMOGLOBIN eCW1 ([facility]) 51.6 HEMATOCRIT eCW1 ([facility]) 29.2 MEAN CORPUSCULAR HEMOGLOBIN eC W1 ([facility]) 92.3 MEAN CORPUSCULAR VOLUME eCW1 ( [facility]) 31.6 MEAN CORPUSCULAR HGB CONC eCW1 ([facility]) 183 PLATELET COUNT, AUTOMATED eCW1 ([facility]) 12.3 RED CELL DISTRIBUTION WIDTH eC W1 ([facility]) Procedure Social History Code Duration Value Status Description Data Source(s ) Smoking 08/06/2021 12:00:00 AM EDT Never Smoker completed Never S moker eCW1 ([facility]) Smoking 08/06/2021 12:00:00 AM EDT Never Smoker completed Never S moker eCW1 ([facility]) Smoking 08/06/2021 12:00:00 AM EDT Never Smoker completed Never S moker eCW1 ([facility]) Smoking 07/27/2021 12:00:00 AM EDT Never Smoker completed Never S moker eCW1 ([facility]) Smoking 05/14/2021 12:00:00 AM EDT Patient has never smoked co mpleted Patient has never smoked [facility] ([facility] ) Smoking 05/11/2021 12:00:00 AM EDT Never Smoker completed Never S moker eCW1 ([facility]) Smoking 05/11/2021 12:00:00 AM EDT Never Smoker completed Never S moker eCW1 ([facility]) Smoking 05/11/2021 12:00:00 AM EDT Never Smoker completed Never S moker eCW1 ([facility]) Smoking 04/21/2021 12:00:00 AM EDT Patient has never smoked co mpleted Patient has never smoked MEDENT ([facility], ) Smoking 03/23/2021 12:00:00 AM EDT Never Smoker completed Never S moker eCW1 ([facility]) Smoking 03/23/2021 12:00:00 AM EDT Never Smoker completed Never S moker eCW1 ([facility]) Smoking 03/23/2021 12:00:00 AM EDT Never Smoker completed Never S moker eCW1 ([facility]) Smoking 03/23/2021 12:00:00 AM EDT Never Smoker completed Never S moker eCW1 ([facility]) Smoking 03/23/2021 12:00:00 AM EDT Never Smoker completed Never S moker eCW1 ([facility]) Smoking 03/23/2021 12:00:00 AM EDT Never Smoker completed Never S moker eCW1 ([facility]) Smoking 03/12/2021 12:00:00 AM EDT Never Smoker completed Never S moker eCW1 ([facility]) Smoking 12/22/2020 12:00:00 AM EST Never Smoker completed Never S moker eCW1 ([facility]) Smoking 12/22/2020 12:00:00 AM EST Never Smoker completed Never S moker eCW1 ([facility]) Smoking 12/22/2020 12:00:00 AM EST Never Smoker completed Never S moker eCW1 ([facility]) Smoking 12/22/2020 12:00:00 AM EST Never Smoker completed Never S moker eCW1 ([facility]) Smoking 12/22/2020 12:00:00 AM EST Never Smoker completed Never S moker eCW1 ([facility]) Smoking 12/04/2020 12:00:00 AM EST Never Smoker completed Never S moker eCW1 ([facility]) Smoking 12/04/2020 12:00:00 AM EST Never Smoker completed Never S moker eCW1 ([facility]) Smoking 12/04/2020 12:00:00 AM EST Never Smoker completed Never S moker eCW1 ([facility]) Smoking 09/11/2020 12:00:00 AM EST Never Smoker completed Never S moker eCW1 ([facility]) Smoking 09/11/2020 12:00:00 AM EST Never Smoker completed Never S moker eCW1 ([facility]) Smoking 09/11/2020 12:00:00 AM EST Never Smoker completed Never S moker eCW1 ([facility]) Smoking 09/11/2020 12:00:00 AM EST Never Smoker completed Never S moker eCW1 ([facility]) Smoking 09/11/2020 12:00:00 AM EST Never Smoker completed Never S moker eCW1 ([facility]) Smoking 09/05/2020 12:00:00 AM EST Never Smoker completed Never S moker eCW1 ([facility]) Smoking 09/05/2020 12:00:00 AM EST Never Smoker completed Never S moker eCW1 ([facility]) Vital Signs ID Date Data Source UNK Name Value Range Interpretation Code Description Data Source(s) Systolic blood pressure 136 mm[Hg] 136 mm[Hg] M [facility] ([facility]) Diastolic blood pressure 72 mm[Hg] 72 mm[Hg] [facility] ([facility]) Heart rate 70 /min 70 /min [facility] ([facility]) Oxygen saturation in Arterial blood by Pulse oximetry 97 % 97 % [facility] ([facility]) Body height 67 [in_i] 67 [in_i] [facility] ([facility]) 5'7" Body weight 189.00 [lb_av] 189.00 [lb_av] [facility] Body mass index (BMI) [Ratio] 29.6 kg/m2 29.6 k g/m2 [facility] ([facility]) [place] body weight 148 [lb_av] 148 [lb_av] [facility] Body weight 85.730 kg 85.730 kg [facility] ([facility]) Body surface area Derived from formula 1.97 m2 1.97 m2 [facility] ([facility]) Body weight 189 [lb_av] 189 [lb_av] W1 ([facility] hospital) Body height 66 [in_i] 66 [in_i] W1 ([facility]) Body mass index (BMI) [Ratio] 30.50 kg/m2 30.50 kg/m2 eCW1 ([facility]) Heart rate 75 /min 75 /min eCW1 ([facility]) Respiratory rate 18 /min 18 /min eCW1 ([facility]) Body temperature 98.0 [degF] 98.0 [degF] eCW1 ( [facility]) Systolic blood pressure 138 mm[Hg] 138 mm[Hg] e CW1 ([facility]) Diastolic blood pressure 72 mm[Hg] 72 mm[Hg] eCW1 ([facility]) Body weight 191.2 [lb_av] 191.2 [lb_av] eCW1 ([facility]) Body weight 86.73 kg 86.73 kg eCW1 ([facility]) Body height 66 [in_i] 66 [in_i] eCW1 ([facility]) Body mass index (BMI) [Ratio] 30.86 kg/m2 30.86 kg/m2 eCW1 ([facility]) Systolic blood pressure 142 mm[Hg] 142 mm[Hg] e CW1 ([facility]) Diastolic blood pressure 82 mm[Hg] 82 mm[Hg] eCW1 ([facility]) Diastolic blood pressure 69 mm[Hg] 69 mm[Hg] [facility] Body mass index (BMI) [Ratio] 28.9 kg/m2 28.9 k g/m2 [facility] ([facility] Body weight 184.25 [lb_av] 184.25 [lb_av] MEDEN T ([facility]) Body height 67 [in_i] 67 [in_i] [facility] 5'7" Heart rate 74 /min 74 /min [facility] Respiratory rate 16 /min 16 /min MED[facility] ( [facility] Systolic blood pressure 125 mm[Hg] 125 mm[Hg] M EDENT ([facility] Body weight 189 [lb_av] 189 [lb_av] eCW1 ([facility]) Body height [in_i] eCW1 ([facility]) Body mass index (BMI) [Ratio] 30.50 kg/m2 30.50 kg/m2 eCW1 ([facility]) Heart rate 80 /min 80 /min eCW1 ([facility]) Respiratory rate 18 /min 18 /min eCW1 ([facility]) Body temperature 99 [degF] 99 [degF] eCW1 ([facility]) Systolic blood pressure 130 mm[Hg] 130 mm[Hg] e CW1 ([facility]) Diastolic blood pressure 78 mm[Hg] 78 mm[Hg] eCW1 ([facility]) Oxygen saturation in Arterial blood by Pulse oximetry 98 % 98 % [facility] ([facility], ) Room Air Body height 67 [in_i] 67 [in_i] [facility] ([facility], ) 5'7" Body weight 188.00 [lb_av] 188.00 [lb_av] MEDEN T ([facility]) Body mass index (BMI) [Ratio] 29.4 kg/m2 29.4 k g/m2 [facility] ([facility]) [place] body weight 148 [lb_av] 148 [lb_av] MEDEN T ([facility]) Body weight 85.277 kg 85.277 kg [facility] ([facility]) Body surface area Derived from formula 1.97 m2 1.97 m2 [facility]) Body weight 188.00 [lb_av] 188.00 [lb_av] MEDEN T ([facility]) Body mass index (BMI) [Ratio] 29.4 kg/m2 29.4 k g/m2 [facility] ([facility]) [place] body weight 148 [lb_av] 148 [lb_av] MEDEN T ([facility]) Body weight 85.277 kg 85.277 kg [facility] ([facility]) Body surface area Derived from formula 1.97 m2 1.97 m2 [facility] ([facility]) Systolic blood pressure 118 mm[Hg] 118 mm[Hg] M EDENT ([facility], ) Diastolic blood pressure 80 mm[Hg] 80 mm[Hg] [facility] ([facility], ) Heart rate 70 /min 70 /min [facility] ([facility], ) Oxygen saturation in Arterial blood by Pulse oximetry 98 % 98 % [facility] ([facility], ) Room Air Body height 67 [in_i] 67 [in_i] [facility] ([facility], ) 5'7" Body weight 188 [lb_av] 188 [lb_av] eCW1 ([facility]) Body height [in_i] eCW1 ([facility]) Body mass index (BMI) [Ratio] 30.34 kg/m2 30.34 kg/m2 eCW1 ([facility]) Systolic blood pressure 128 mm[Hg] 128 mm[Hg] e CW1 ([facility]) Diastolic blood pressure 76 mm[Hg] 76 mm[Hg] eCW1 ([facility]) Body weight 190 [lb_av] 190 [lb_av] eCW1 ([facility]) Body height [in_i] eCW1 ([facility]) Body mass index (BMI) [Ratio] 30.66 kg/m2 30.66 kg/m2 W1 ([facility]) Heart rate 72 /min 72 /min eCW1 ([facility]) Respiratory rate 18 /min 18 /min eCW1 ([facility]) Body temperature 97.1 [degF] 97.1 [degF] eCW1 ( [facility]) Systolic blood pressure 134 mm[Hg] 134 mm[Hg] e CW1 ([facility]) Diastolic blood pressure 74 mm[Hg] 74 mm[Hg] eCW1 ([facility]) Body weight 196 [lb_av] 196 [lb_av] eCW1 ([facility]) Body height [in_i] eCW1 ([facility]) Body mass index (BMI) [Ratio] 31.63 kg/m2 31.63 kg/m2 eCW1 ([facility]) Systolic blood pressure 126 mm[Hg] 126 mm[Hg] e CW1 ([facility]) Diastolic blood pressure 72 mm[Hg] 72 mm[Hg] eCW1 ([facility]) Body weight 194 [lb_av] 194 [lb_av] eCW1 ([facility]) Body height [in_i] eCW1 ([facility]) Body mass index (BMI) [Ratio] 31.31 kg/m2 31.31 kg/m2 eCW1 ([facility]) Heart rate 87 /min 87 /min eCW1 ([facility]) Respiratory rate 18 /min 18 /min eCW1 ([facility]) Body temperature 97.5 [degF] 97.5 [degF] eCW1 ( [facility]) Systolic blood pressure 130 mm[Hg] 130 mm[Hg] e CW1 ([facility]) Diastolic blood pressure 74 mm[Hg] 74 mm[Hg] eCW1 ([facility]) Systolic blood pressure 132 mm[Hg] 132 mm[Hg] M EDENT ([facility], ) Diastolic blood pressure 78 mm[Hg] 78 mm[Hg] MEDENT ([facility], ) Body height 67 [in_i] 67 [in_i] [facility] ([facility], ) 5'7" Body weight 193.00 [lb_av] 193.00 [lb_av] MEDEN T ([facility], ) Body mass index (BMI) [Ratio] 30.2 kg/m2 30.2 k g/m2 [facility] ([facility], ) [place] body weight 148 [lb_av] 148 [lb_av] MEDEN T ([facility], ) Body weight 87.545 kg 87.545 kg [facility] ([facility], ) Body surface area Derived from formula 1.99 m2 1.99 m2 [facility] ([facility], ) Body weight 194 [lb_av] 194 [lb_av] eCW1 ([facility]) Body height [in_i] eCW1 ([facility]) Body mass index (BMI) [Ratio] 31.31 kg/m2 31.31 kg/m2 eCW1 ([facility]) Heart rate 58 /min 58 /min eCW1 ([facility]) Respiratory rate 18 /min 18 /min eCW1 ([facility]) Body temperature 96.9 [degF] 96.9 [degF] eCW1 ( [facility]) Systolic blood pressure 144 mm[Hg] 144 mm[Hg] e CW1 ([facility]) Diastolic blood pressure 86 mm[Hg] 86 mm[Hg] eCW1 ([facility]) Body weight 192 [lb_av] 192 [lb_av] eCW1 ([facility]) Body height [in_i] eCW1 ([facility]) Body mass index (BMI) [Ratio] 30.99 kg/m2 30.99 kg/m2 eCW1 ([facility]) Systolic blood pressure 126 mm[Hg] 126 mm[Hg] e CW1 ([facility]) Diastolic blood pressure 76 mm[Hg] 76 mm[Hg] eCW1 ([facility]) Patient Treatment Plan of Care Planned Activity Planned Date Details Description Data Source (s) ciclopirox 80 MG/ML Topical Solution 07/27/2021 12:00:00 AM EDT eCW1 ([facility]) mometasone furoate 1 MG/ML Topical Cream 07/27/2021 12:00:00 AM EDT eCW1 ([facility]) Polymyxin B 55617 UNT/ML / Trimethoprim 1 MG/ML Ophtha lmic Solution [Polytrim] 05/11/2021 12:00:00 AM EDT eCW1 ([facility]) Polymyxin B 84448 UNT/ML / Trimethoprim 1 MG/ML Ophtha lmic Solution [Polytrim] 05/11/2021 12:00:00 AM EDT eCW1 ([facility]) Polymyxin B 00544 UNT/ML / Trimethoprim 1 MG/ML Ophtha lmic Solution [Polytrim] 05/11/2021 12:00:00 AM EDT eCW1 ([facility]) Urea 20 20 % 04/06/2021 12:00:00 AM EDT e CW1 ([facility]) Urea 20 20 % 04/06/2021 12:00:00 AM EDT e CW1 ([facility]) Urea 20 20 % 04/06/2021 12:00:00 AM EDT e CW1 ([facility]) Urea 20 20 % 04/06/2021 12:00:00 AM EDT e CW1 ([facility]) Urea 400 MG/ML Topical Cream 03/27/2021 12:00:00 AM EDT eCW1 ([facility]) Urea 400 MG/ML Topical Cream 03/27/2021 12:00:00 AM EDT eCW1 ([facility]) Urea 400 MG/ML Topical Cream 03/27/2021 12:00:00 AM EDT eCW1 ([facility]) Urea 400 MG/ML Topical Cream 03/27/2021 12:00:00 AM EDT eCW1 ([facility]) Urea 400 MG/ML Topical Cream 03/27/2021 12:00:00 AM EDT eCW1 ([facility]) Urea 0.45 MG/MG Topical Gel 03/23/2021 12:00:00 AM EDT eCW1 ([facility]) Urea 0.45 MG/MG Topical Gel 03/23/2021 12:00:00 AM EDT eCW1 ([facility]) Urea 0.45 MG/MG Topical Gel 03/23/2021 12:00:00 AM EDT eCW1 ([facility]) Urea 0.45 MG/MG Topical Gel 03/23/2021 12:00:00 AM EDT eCW1 ([facility]) Urea 0.45 MG/MG Topical Gel 03/23/2021 12:00:00 AM EDT eCW1 ([facility]) Urea 0.45 MG/MG Topical Gel 03/23/2021 12:00:00 AM EDT eCW1 ([facility]) Nystatin [id number] UNT/ML Topical Cream 01/07/2021 12:00:00 AM EST eCW1 ([facility]) Nystatin 377360 UNT/ML Topical Cream 01/07/2021 12:00:00 AM EST eCW1 ([facility]) Nystatin 294327 UNT/ML Topical Cream 01/07/2021 12:00:00 AM EST eCW1 ([facility]) Nystatin [id number] UNT/ML Topical Cream 01/07/2021 12:00:00 AM EST eCW1 ([facility]) Betamethasone 0.5 MG/ML / Clotrimazole 10 MG/ML Topica l Cream 12/22/2020 12:00:00 AM EST eCW1 ([facility]) Betamethasone 0.5 MG/ML / Clotrimazole 10 MG/ML Topica l Cream 12/22/2020 12:00:00 AM EST eCW1 ([facility]) Betamethasone 0.5 MG/ML / Clotrimazole 10 MG/ML Topica l Cream 12/22/2020 12:00:00 AM EST eCW1 ([facility]) Betamethasone 0.5 MG/ML / Clotrimazole 10 MG/ML Topica l Cream 12/22/2020 12:00:00 AM EST eCW1 ([facility]) Betamethasone 0.5 MG/ML / Clotrimazole 10 MG/ML Topica l Cream 12/22/2020 12:00:00 AM EST eCW1 ([facility]) Amoxicillin 875 MG Oral Tablet 12/05/2020 12:00:00 AM EST eCW1 ([facility]) Amoxicillin 875 MG Oral Tablet 12/05/2020 12:00:00 AM EST eCW1 ([facility]) Amoxicillin 875 MG Oral Tablet 12/05/2020 12:00:00 AM EST eCW1 ([facility]) Fluconazole 150 MG Oral Tablet [Diflucan] 09/05/2020 12:00:00 AM ES T eCW1 ([facility]) Fluconazole 150 MG Oral Tablet [Diflucan] 09/05/2020 12:00:00 AM ES T eCW1 ([facility]) Fluconazole 150 MG Oral Tablet [Diflucan] 09/05/2020 12:00:00 AM ES T eCW1 ([facility]) Fluconazole 150 MG Oral Tablet [Diflucan] 09/05/2020 12:00:00 AM ES T eCW1 ([facility]) Fluconazole 150 MG Oral Tablet [Diflucan] 09/05/2020 12:00:00 AM ES T eCW1 ([facility])
--- NOTE | 2021-09-17 08:31 | REP ---
INDICATION: CHEST PAIN COMPARISON: 08/03/2014 TECHNIQUE: Portable AP view of the chest FINDINGS: The mediastinum and cardiac silhouette are stable and within normal limits for portable technique. The lung marin are clear without acute consolidation, effusion, or pneumothorax. Skeletal structures are intact. IMPRESSION: No acute cardiopulmonary process appreciated. <Electronically signed by Frankie Jiménez > 09/17/21 [id number]
[2021-09-17 08:40] LABS: BASO % 0.3 % (0.0-1.0); EOS % 0.3 % (0.0-3.0); HEMATOCRIT 51.2 % (42.0-52.0); HEMOGLOBIN 17.2 g/dl (13.5-17.5); LYMPH # 0.6 10^3/uL (1.5-5.0); MEAN CORPUSCULAR HEMOGLOBIN 29.8 pg (27.0-33.0); MEAN CORPUSCULAR HGB CONC 33.6 g/dl (32.0-36.5); MEAN CORPUSCULAR VOLUME 88.6 fl (80.0-96.0); MONO # 0.6 10^3/uL (0.0-0.8); MONO % 16.9 % (2.0-8.0); NEUTROPHILS # 2.4 10^3/uL (1.5-8.5); NEUTROPHILS % 66.2 % (36.0-66.0); PLATELET COUNT, AUTOMATED 128 10^3/uL (150-450); RED BLOOD COUNT 5.78 10^6/uL (4.30-6.10); WHITE BLOOD COUNT 3.6 10^3/uL (4.0-10.0)
[2021-09-17 09:10] VITALS: BP 123/63
[2021-09-17] MEDS ORDERED: METOPROLOL SUCC *XL* 25MG TAB (TopROL *XL*) PO ONE ×2 (09:10→14:35)
[2021-09-17 09:17] LABS: ALBUMIN 3.5 GM/DL (3.2-5.2); ALT/SGPT 47 U/L (12-78); BILIRUBIN,DIRECT 0.1 MG/DL (0.0-0.2); BILIRUBIN,TOTAL 0.4 MG/DL (0.2-1.0); BLOOD UREA NITROGEN 12 MG/DL (7-18); CALCIUM LEVEL 8.4 MG/DL (8.5-10.1); CARBON DIOXIDE LEVEL 28 MEQ/L (21-32); CHLORIDE LEVEL 108 MEQ/L (98-107); CREATININE FOR GFR 1.02 MG/DL (0.70-1.30); GLOMERULAR FILTRATION RATE > 60.0 (>56); GLUCOSE, FASTING 109 MG/DL (70-100); LIPASE 119 U/L (73-393); POTASSIUM SERUM 4.1 MEQ/L (3.5-5.1); SODIUM LEVEL 142 MEQ/L (136-145); THYROID STIMULATING HORMONE 0.515 uIU/ML (0.358-3.740); TOTAL PROTEIN 6.8 GM/DL (6.4-8.2)
[2021-09-17 15:23] VITALS: BP 101/70
--- NOTE | 2021-09-19 07:47 | ECGEPIP ---
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
--- NOTE | 2021-09-19 07:48 | ECGEPIP ---
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
--- NOTE | 2021-09-19 07:59 | ECGEPIP ---
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
== END 2021-09-17 15:45 | disposition home or self-care (01) ==
LOC: M ED 07:53
DX: I48.0 Paroxysmal atrial fibrillation (principal); R55 Syncope and collapse; I10 Essential (primary) hypertension; E07.9 Disorder of thyroid, unspecified; Z79.82 Long term (current) use of aspirin; J30.89 Other allergic rhinitis

== ENCOUNTER 2021-09-23 14:14 | Outpatient (CLI) | payer BC ==
[~2021-09-23] VITALS: Ht 170.2 cm; Wt 82.7 kg
[~2021-09-23 14:14] MED LIST changes: +ALBUTEROL 90 MCG/ACT 8GM HFA INHALER INH PRN; +ALBUTEROL SULFATE 2.5 MG/0.5 ML INH NEB SOLN INH PRN; +EPINEPHrine INJ 1 MG/ML 1ML AMP IM PRN; +NS 1,000 ML IV SCH; +diphenhydrAMINE 50MG/ML VIAL (J1200) IV PRN; +methylPREDNISolone 125MG 2ML VIAL IV PRN
[2021-09-23 14:47] VITALS: BP 150/57
[2021-09-23] MEDS ORDERED: CASIRIVIMAB (REGN10933) 600 MG, IMDEVIMAB (REGN10987) 600 MG in NS 250 ML IV ONE (15:00)
[2021-09-23] MEDS ORDERED: ACETAMINOPHEN TAB 650MG DOSE (2X325MG) PO ONE (15:00)
[2021-09-23 15:17] VITALS: BP 105/73
[2021-09-23 15:47] VITALS: BP 114/60
[2021-09-23 16:47] VITALS: BP 104/64
== END 2021-09-23 16:47 | disposition home or self-care (01) ==
LOC: M OPCLI4PR 14:14
PROVIDERS: ATTEND Physician Assistant
DX: U07.1 COVID-19 (principal)

== ENCOUNTER → 2021-10-02 | Outpatient (REF) | payer BC ==
[~2021-10-02] MED LIST changes: -ALBUTEROL 90 MCG/ACT 8GM HFA INHALER INH PRN; -ALBUTEROL SULFATE 2.5 MG/0.5 ML INH NEB SOLN INH PRN; -EPINEPHrine INJ 1 MG/ML 1ML AMP IM PRN; -NS 1,000 ML IV SCH; -diphenhydrAMINE 50MG/ML VIAL (J1200) IV PRN; -methylPREDNISolone 125MG 2ML VIAL IV PRN
[2021-10-02 17:28] LABS: APPEARANCE, URINE HAZY (CLEAR); BACTERIA, URINE AUTO NEGATIVE (NEGATIVE); BILIRUBIN, URINE AUTO NEGATIVE (NEGATIVE); BLOOD, URINE BLOOD NEGATIVE (NEGATIVE); CALCIUM OXALATE CRYSTALS SMALL; COLOR, URINE YELLOW (YELLOW); GLUCOSE, URINE (UA) AUTO NEGATIVE (NEGATIVE); KETONE, URINE AUTO NEGATIVE (NEGATIVE); LEUKOCYTE ESTERASE, URINE AUTO NEGATIVE (NEGATIVE); MUCUS, URINE SMALL (NEGATIVE); NITRITE, URINE AUTO NEGATIVE (NEGATIVE); PROTEIN, URINE AUTO NEGATIVE (NEGATIVE); RBC, URINE AUTO 1 /HPF (0-3); SPECIFIC GRAVITY URINE AUTO 1.024 (1.002-1.035); SQUAMOUS EPITHELIAL CELL UR AU 0 /HPF (0-6); UROBILINOGEN, URINE AUTO 0.2 mg/dL (0.0-2.0); WBC, URINE AUTO 6 /HPF (0-3)
== END ==
LOC: M LAB REF 16:33
PROVIDERS: ATTEND Physician Assistant
DX: R30.0 Dysuria (principal)

== ENCOUNTER → 2021-10-27 | Outpatient (CLI) | payer BC ==
[2021-10-27 12:45] LABS: HEMATOCRIT 47.2 % (42.0-52.0); HEMOGLOBIN 15.4 g/dl (13.5-17.5); MEAN CORPUSCULAR HEMOGLOBIN 29.7 pg (27.0-33.0); MEAN CORPUSCULAR HGB CONC 32.6 g/dl (32.0-36.5); MEAN CORPUSCULAR VOLUME 90.9 fl (80.0-96.0); PLATELET COUNT, AUTOMATED 183 10^3/uL (150-450); RED BLOOD COUNT 5.19 10^6/uL (4.30-6.10); WHITE BLOOD COUNT 6.3 10^3/uL (4.0-10.0)
[2021-10-27 13:14] LABS: BLOOD UREA NITROGEN 19 MG/DL (7-18); CALCIUM LEVEL 8.8 MG/DL (8.5-10.1); CARBON DIOXIDE LEVEL 30 MEQ/L (21-32); CHLORIDE LEVEL 106 MEQ/L (98-107); CREATININE FOR GFR 0.81 MG/DL (0.70-1.30); GLOMERULAR FILTRATION RATE > 60.0 (>56); GLUCOSE, FASTING 100 MG/DL (70-100); POTASSIUM SERUM 4.2 MEQ/L (3.5-5.1); SODIUM LEVEL 140 MEQ/L (136-145)
== END ==
LOC: M LABDRWAD 09:06
PROVIDERS: ATTEND Internal Medicine Cardiovascular Disease
DX: I48.0 Paroxysmal atrial fibrillation (principal)

== ENCOUNTER → 2021-11-11 | Outpatient (REF) | payer BC ==
[2021-11-11 14:11] LABS: BLOOD UREA NITROGEN 21 MG/DL (7-18); CALCIUM LEVEL 9.4 MG/DL (8.5-10.1); CARBON DIOXIDE LEVEL 29 MEQ/L (21-32); CHLORIDE LEVEL 106 MEQ/L (98-107); CREATININE FOR GFR 0.85 MG/DL (0.70-1.30); FREE T4 1.24 NG/DL (0.76-1.46); GLOMERULAR FILTRATION RATE > 60.0 (>56); GLUCOSE, FASTING 89 MG/DL (70-100); MAGNESIUM LEVEL 2.4 MG/DL (1.8-2.4); POTASSIUM SERUM 4.2 MEQ/L (3.5-5.1); SODIUM LEVEL 142 MEQ/L (136-145)
== END ==
LOC: M LAB REF 12:17
PROVIDERS: ATTEND Internal Medicine Cardiovascular Disease
DX: I50.9 Heart failure, unspecified (principal); I48.92 Unspecified atrial flutter; I48.0 Paroxysmal atrial fibrillation

== ENCOUNTER → 2021-12-03 | Outpatient (REF) | payer BC ==
[2021-12-03 13:09] LABS: FREE T4 1.21 NG/DL (0.76-1.46); THYROID STIMULATING HORMONE 0.831 uIU/ML (0.358-3.740)
== END ==
LOC: M SFHCADAM 08:06
PROVIDERS: ATTEND Family Medicine
DX: E03.9 Hypothyroidism, unspecified (principal)

== ENCOUNTER → 2022-06-08 | Outpatient (REF) | payer BC ==
[2022-06-08 13:30] LABS: HEMATOCRIT 49.5 % (42.0-52.0); HEMOGLOBIN 15.9 g/dl (13.5-17.5); MEAN CORPUSCULAR HEMOGLOBIN 29.4 pg (27.0-33.0); MEAN CORPUSCULAR HGB CONC 32.1 g/dl (32.0-36.5); MEAN CORPUSCULAR VOLUME 91.7 fl (80.0-96.0); PLATELET COUNT, AUTOMATED 177 10^3/uL (150-450); WHITE BLOOD COUNT 6.8 10^3/uL (4.0-10.0)
[2022-06-08 14:31] LABS: ALBUMIN 3.7 GM/DL (3.2-5.2); ALT/SGPT 34 U/L (12-78); BILIRUBIN,TOTAL 0.5 MG/DL (0.2-1.0); BLOOD UREA NITROGEN 16 MG/DL (7-18); CALCIUM LEVEL 8.9 MG/DL (8.5-10.1); CARBON DIOXIDE LEVEL 28 MEQ/L (21-32); CHLORIDE LEVEL 109 MEQ/L (98-107); CHOLESTEROL LEVEL 164 MG/DL (<200); CREATININE FOR GFR 0.89 MG/DL (0.70-1.30); FREE T4 1.07 NG/DL (0.76-1.46); GLOMERULAR FILTRATION RATE > 60.0 (>56); GLUCOSE, FASTING 99 MG/DL (70-100); HDL CHOLESTEROL 40 MG/DL (>40); LDL CHOLESTEROL 115 MG/DL (<100); NON-HDL-C 124 MG/DL; POTASSIUM SERUM 4.3 MEQ/L (3.5-5.1); SODIUM LEVEL 142 MEQ/L (136-145); THYROID STIMULATING HORMONE 0.976 uIU/ML (0.358-3.740); TOTAL PROTEIN 6.7 GM/DL (6.4-8.2); TRIGLYCERIDES LEVEL 45 MG/DL (<150)
[2022-06-08 15:12] LABS: TOTAL 25(OH) VITAMIN D 40.6 NG/ML (30.0-100.0)
== END ==
LOC: M SFHCADAM 07:51
PROVIDERS: ATTEND Family Medicine
DX: I48.91 Unspecified atrial fibrillation (principal); R53.82 Chronic fatigue, unspecified; I11.9 Hypertensive heart disease without heart failure; E03.9 Hypothyroidism, unspecified; E55.9 Vitamin D deficiency, unspecified; Z12.5 Encounter for screening for malignant neoplasm of prostate
CPT/HCPCS: 80053; 80061; 82306; 84439; 84443; 85027; G0103

== ENCOUNTER → 2022-06-17 | Outpatient (CLI) | payer BC | LOC: M ADAMS 09:05 | PROVIDERS: ATTEND Family Medicine | DX: M25.561 Pain in right knee (principal) ==

== ENCOUNTER → 2022-07-02 | Outpatient (CLI) | payer BC | LOC: M SOG 08:31 | PROVIDERS: ATTEND Orthopaedic Surgery Adult Reconstructive Orthopaedic Surgery | DX: M25.561 Pain in right knee (principal) ==

== ENCOUNTER → 2022-11-03 | Outpatient (REF) | payer BC ==
[2022-11-03 14:51] LABS: BASO # 0.1 10^3/uL (0.0-0.2); BASO % 0.6 % (0.0-1.0); EOS # 0.2 10^3/uL (0.0-0.5); EOS % 2.9 % (0.0-3.0); HEMATOCRIT 51.2 % (42.0-52.0); HEMOGLOBIN 16.5 g/dl (13.5-17.5); LYMPH % 26.2 % (24.0-44.0); MEAN CORPUSCULAR HEMOGLOBIN 29.7 pg (27.0-33.0); MEAN CORPUSCULAR HGB CONC 32.2 g/dl (32.0-36.5); MEAN CORPUSCULAR VOLUME 92.1 fl (80.0-96.0); MONO # 0.7 10^3/uL (0.0-0.8); MONO % 8.9 % (2.0-8.0); NEUTROPHILS # 4.7 10^3/uL (1.5-8.5); PLATELET COUNT, AUTOMATED 179 10^3/uL (150-450); RED BLOOD COUNT 5.56 10^6/uL (4.30-6.10); WHITE BLOOD COUNT 7.7 10^3/uL (4.0-10.0)
[2022-11-03 15:26] LABS: ALKALINE PHOSPHATASE 64 U/L (46-116); ALT/SGPT 41 U/L (7.0-40); AST/SGOT 24 U/L (<34); BILIRUBIN,TOTAL 0.5 MG/DL (0.3-1.2); BLOOD UREA NITROGEN 17 MG/DL (9-23); CALCIUM LEVEL 9.3 MG/DL (8.5-10.1); CARBON DIOXIDE LEVEL 25 MMOL/L (20-31); CHLORIDE LEVEL 104 MMOL/L (98-107); CREATININE FOR GFR 0.81 MG/DL (0.70-1.30); GLOMERULAR FILTRATION RATE > 60.0 (>56); GLUCOSE, FASTING 87 MG/DL (60-100); POTASSIUM SERUM 4.6 MMOL/L (3.5-5.1); SODIUM LEVEL 142 MMOL/L (136-145); TOTAL PROTEIN 6.8 G/DL (5.7-8.2)
== END ==
LOC: M LABDRWAD 13:23
PROVIDERS: ATTEND Physician Assistant
DX: I10 Essential (primary) hypertension (principal); I48.0 Paroxysmal atrial fibrillation

== ENCOUNTER → 2022-12-06 | Outpatient (REF) | payer BC ==
[2022-12-06 12:51] LABS: HEMATOCRIT 47.7 % (42.0-52.0); HEMOGLOBIN 15.6 g/dl (13.5-17.5); MEAN CORPUSCULAR HEMOGLOBIN 29.8 pg (27.0-33.0); MEAN CORPUSCULAR HGB CONC 32.7 g/dl (32.0-36.5); MEAN CORPUSCULAR VOLUME 91.2 fl (80.0-96.0); PLATELET COUNT, AUTOMATED 189 10^3/uL (150-450); RED BLOOD COUNT 5.23 10^6/uL (4.30-6.10); WHITE BLOOD COUNT 7.3 10^3/uL (4.0-10.0)
[2022-12-06 13:16] LABS: ALBUMIN 3.7 G/DL (3.2-5.2); ALKALINE PHOSPHATASE 69 U/L (46-116); ALT/SGPT 32 U/L (7.0-40); AST/SGOT 26 U/L (<34); BILIRUBIN,TOTAL 0.4 MG/DL (0.3-1.2); BLOOD UREA NITROGEN 17 MG/DL (9-23); CALCIUM LEVEL 9.1 MG/DL (8.5-10.1); CARBON DIOXIDE LEVEL 28 MMOL/L (20-31); CHLORIDE LEVEL 106 MMOL/L (98-107); CREATININE FOR GFR 0.85 MG/DL (0.70-1.30); GLOMERULAR FILTRATION RATE > 60.0 (>56); GLUCOSE, FASTING 96 MG/DL (60-100); POTASSIUM SERUM 4.6 MMOL/L (3.5-5.1); SODIUM LEVEL 142 MMOL/L (136-145); THYROID STIMULATING HORMONE 1.879 uIU/ML (0.55-4.78); TOTAL PROTEIN 6.3 G/DL (5.7-8.2)
== END ==
LOC: M SFHCADAM 09:59
PROVIDERS: ATTEND Family Medicine
DX: I48.91 Unspecified atrial fibrillation (principal); I11.9 Hypertensive heart disease without heart failure

== ENCOUNTER → 2023-05-30 | Outpatient (REF) | payer BC ==
[2023-05-30 14:07] LABS: HEMOGLOBIN A1c 5.6 % (4.0-6.0)
[2023-05-30 14:09] LABS: BASO # 0.1 10^3/uL (0.0-0.2); BASO % 0.8 % (0.0-1.0); EOS # 0.2 10^3/uL (0.0-0.5); EOS % 3.3 % (0.0-3.0); HEMATOCRIT 51.2 % (42.0-52.0); HEMOGLOBIN 16.4 g/dl (13.5-17.5); LYMPH # 1.8 10^3/uL (1.5-5.0); LYMPH % 26.6 % (24.0-44.0); MEAN CORPUSCULAR HEMOGLOBIN 29.5 pg (27.0-33.0); MEAN CORPUSCULAR VOLUME 92.3 fl (80.0-96.0); MONO # 0.6 10^3/uL (0.0-0.8); MONO % 8.6 % (2.0-8.0); NEUTROPHILS % 60.4 % (36.0-66.0); PLATELET COUNT, AUTOMATED 173 10^3/uL (150-450); RED BLOOD COUNT 5.55 10^6/uL (4.30-6.10); WHITE BLOOD COUNT 6.6 10^3/uL (4.0-10.0)
[2023-05-30 14:22] LABS: ALKALINE PHOSPHATASE 61 U/L (46-116); ALT/SGPT 27 U/L (7.0-40); AST/SGOT 12 U/L (<34); BILIRUBIN,TOTAL 0.7 MG/DL (0.3-1.2); BLOOD UREA NITROGEN 19 MG/DL (9-23); CALCIUM LEVEL 9.1 MG/DL (8.5-10.1); CARBON DIOXIDE LEVEL 28 MMOL/L (20-31); CHLORIDE LEVEL 105 MMOL/L (98-107); CHOLESTEROL LEVEL 162 MG/DL (<200); CHOLESTEROL RISK RATIO 3.66 (<5); CREATININE FOR GFR 0.89 MG/DL (0.70-1.30); FREE T4 1.23 NG/DL (0.89-1.76); GLOMERULAR FILTRATION RATE > 60.0 (>56); GLUCOSE, FASTING 90 MG/DL (60-100); HDL CHOLESTEROL 44.2 MG/DL (>40); LDL CHOLESTEROL 108.2 MG/DL (<100); NON-HDL-C 117.8 MG/DL; POTASSIUM SERUM 4.4 MMOL/L (3.5-5.1); SODIUM LEVEL 141 MMOL/L (136-145); THYROID STIMULATING HORMONE 1.653 uIU/ML (0.55-4.78); TOTAL 25(OH) VITAMIN D 35.1 NG/ML (20.0-100.0); TOTAL PROTEIN 6.6 G/DL (5.7-8.2); TRIGLYCERIDES LEVEL 48 MG/DL (<150)
[2023-05-31 15:10] LABS: TESTOSTERONE FREE (DIRECT) 8.7 pg/mL (7.2-24.0)
== END ==
LOC: M SFHCADAM 07:47
PROVIDERS: ATTEND Family Medicine
DX: I11.9 Hypertensive heart disease without heart failure (principal); R53.82 Chronic fatigue, unspecified; R94.6 Abnormal results of thyroid function studies; E78.5 Hyperlipidemia, unspecified; Z12.5 Encounter for screening for malignant neoplasm of prostate; E29.1 Testicular hypofunction; E55.9 Vitamin D deficiency, unspecified
CPT/HCPCS: 80053; 80061; 82306; 83036; 84402; 84403; 84439; 84443; 85025; G0103

== ENCOUNTER → 2023-11-23 | Outpatient (REF) | payer BC ==
[2023-11-23 15:06] LABS: BLOOD UREA NITROGEN 18 MG/DL (9-23); CALCIUM LEVEL 9.1 MG/DL (8.5-10.1); CARBON DIOXIDE LEVEL 30 MMOL/L (20-31); CHLORIDE LEVEL 108 MMOL/L (98-107); CREATININE FOR GFR 0.84 MG/DL (0.70-1.30); GLOMERULAR FILTRATION RATE > 60.0 (>56); GLUCOSE, FASTING 92 MG/DL (60-100); POTASSIUM SERUM 4.1 MMOL/L (3.5-5.1); SODIUM LEVEL 137 MMOL/L (136-145)
[2023-11-23 15:11] LABS: TOTAL 25(OH) VITAMIN D 28.8 NG/ML (20.0-100.0)
[2023-11-23 15:12] LABS: FREE T4 1.18 NG/DL (0.89-1.76)
== END ==
LOC: M SFHCADAM 08:31
PROVIDERS: ATTEND Family Medicine
DX: E55.9 Vitamin D deficiency, unspecified (principal); E03.9 Hypothyroidism, unspecified; I11.9 Hypertensive heart disease without heart failure

== ENCOUNTER → 2023-12-07 | Outpatient (REF) | payer BC ==
[2023-12-07 14:53] LABS: ALBUMIN 3.7 G/DL (3.2-5.2); ALKALINE PHOSPHATASE 67 U/L (46-116); ALT/SGPT 51 U/L (7.0-40); AST/SGOT 22 U/L (<34); BILIRUBIN,TOTAL 0.5 MG/DL (0.3-1.2); BLOOD UREA NITROGEN 17 MG/DL (9-23); CALCIUM LEVEL 9.1 MG/DL (8.5-10.1); CARBON DIOXIDE LEVEL 29 MMOL/L (20-31); CHLORIDE LEVEL 106 MMOL/L (98-107); CREATININE FOR GFR 0.82 MG/DL (0.70-1.30); GLOMERULAR FILTRATION RATE > 60.0 (>56); GLUCOSE, FASTING 102 MG/DL (60-100); POTASSIUM SERUM 4.8 MMOL/L (3.5-5.1); SODIUM LEVEL 138 MMOL/L (136-145); TOTAL PROTEIN 6.9 G/DL (5.7-8.2); VITAMIN B12 LEVEL 381 PG/ML (211-911)
[2023-12-07 14:54] LABS: TOTAL 25(OH) VITAMIN D 33.4 NG/ML (20.0-100.0)
[2023-12-07 14:57] LABS: HEMATOCRIT 52.3 % (42.0-52.0); MEAN CORPUSCULAR HEMOGLOBIN 29.9 pg (27.0-33.0); MEAN CORPUSCULAR HGB CONC 32.5 g/dl (32.0-36.5); MEAN CORPUSCULAR VOLUME 91.9 fl (80.0-96.0); PLATELET COUNT, AUTOMATED 173 10^3/uL (150-450); RED BLOOD COUNT 5.69 10^6/uL (4.30-6.10); WHITE BLOOD COUNT 6.7 10^3/uL (4.0-10.0)
[2023-12-07 14:58] LABS: FOLATE > 24.00 NG/ML (>5.4)
== END ==
LOC: M SFHCADAM 09:02
PROVIDERS: ATTEND Family Medicine
DX: R53.82 Chronic fatigue, unspecified (principal)

== ENCOUNTER → 2024-01-24 | Outpatient (REF) | payer BC ==
[2024-01-24 14:57] LABS: THYROID STIMULATING HORMONE 1.188 uIU/ML (0.55-4.78)
[2024-01-24 14:58] LABS: FREE T4 1.25 NG/DL (0.89-1.76)
== END ==
LOC: M SFHCADAM 08:16
PROVIDERS: ATTEND Family Medicine
DX: E03.9 Hypothyroidism, unspecified (principal)

== ENCOUNTER → 2024-03-07 | Outpatient (REF) | payer BC ==
[2024-03-07 13:24] LABS: FREE T4 1.1 NG/DL (0.89-1.76); THYROID STIMULATING HORMONE 1.768 uIU/ML (0.55-4.78)
== END ==
LOC: M SFHCADAM 08:21
PROVIDERS: ATTEND Family Medicine
DX: E03.9 Hypothyroidism, unspecified (principal)

== ENCOUNTER → 2024-03-14 | Outpatient (REF) | payer BC ==
[2024-03-14 14:52] LABS: FREE T4 1.06 NG/DL (0.89-1.76)
[2024-03-14 14:53] LABS: THYROID STIMULATING HORMONE 1.843 uIU/ML (0.55-4.78)
== END ==
LOC: M SFHCADAM 08:10
PROVIDERS: ATTEND Family Medicine
DX: R94.6 Abnormal results of thyroid function studies (principal)

== ENCOUNTER → 2024-06-04 | Outpatient (REF) | payer BC ==
[~2024-06-04] MED LIST changes: +DOFE125C PO; +XARE10TA PO
[2024-06-04 15:04] LABS: FREE T4 0.87 NG/DL (0.89-1.76); THYROID STIMULATING HORMONE 3.605 uIU/ML (0.55-4.78)
[2024-06-04 15:05] LABS: CORTISOL AM 6.9 UG/DL (4.3-22.4)
== END ==
LOC: M SFHCADAM 08:21
PROVIDERS: ATTEND Family Medicine
DX: E03.9 Hypothyroidism, unspecified (principal); R53.82 Chronic fatigue, unspecified

== ENCOUNTER → 2024-08-29 | Outpatient (REF) | payer BC ==
[2024-08-29 13:47] LABS: CHOLESTEROL RISK RATIO 5.12 (<5); HDL CHOLESTEROL 36.7 MG/DL (>40); LDL CHOLESTEROL 139.1 MG/DL (<100); NON-HDL-C 151.3 MG/DL
[2024-08-29 13:55] LABS: FREE T4 1.15 NG/DL (0.89-1.76); THYROID STIMULATING HORMONE 2.728 uIU/ML (0.55-4.78)
== END ==
LOC: M SFHCADAM 09:02
PROVIDERS: ATTEND Family Medicine
DX: R94.6 Abnormal results of thyroid function studies (principal); E78.5 Hyperlipidemia, unspecified

== ENCOUNTER 2024-12-24 07:04 | Day surgery (SDC) | payer BC ==
[~2024-12-24] VITALS: Ht 170.2 cm; Wt 90.3 kg
[~2024-12-24 07:04] MED LIST changes: -BAYE325T12 PO; +BAYE325T2 PO; +XARE20TA PO
[2024-12-24] MEDS ORDERED: LIDOCAINE 2% 100MG/5ML SDV (FOR ANES.) As Ordered ONE (08:09)
[2024-12-24] MEDS ORDERED: propofoL 200 MG/20 ML VIAL As Ordered ONE (08:09)
[2024-12-24 08:23] VITALS: TEMP 98.6
[2024-12-24 08:42] VITALS: BP 159/91; O2SAT 95
== END 2024-12-24 08:45 | disposition home or self-care (01) ==
LOC: M OPP 07:04
PROVIDERS: ATTEND Internal Medicine Gastroenterology
DX: K63.5 Polyp of colon (principal); K57.30 Diverticulosis of large intestine without perforation or abscess without bleeding; K64.8 Other hemorrhoids; Z86.0101 Personal history of adenomatous and serrated colon polyps; G47.30 Sleep apnea, unspecified; I48.91 Unspecified atrial fibrillation; Z79.01 Long term (current) use of anticoagulants; Z79.899 Other long term (current) drug therapy

== ENCOUNTER → 2025-09-04 | Outpatient (REF) | payer BC ==
[~2025-09-04] MED LIST changes: -DOFE125C PO; +DOFE125C17 PO
[2025-09-04 14:19] LABS: PLATELET COUNT, AUTOMATED 202 10^3/uL (150-450)
[2025-09-04 14:41] LABS: ESTIMATED AVERAGE GLUCOSE 108.0 MG/DL (60-110)
[2025-09-04 14:45] LABS: PSA SCREENING 0.90 NG/ML (< 4.00)
[2025-09-04 14:48] LABS: ALT/SGPT 54 U/L (7.0-40); AST/SGOT 29 U/L (<34); CALCIUM LEVEL 9.5 MG/DL (8.5-10.1); CARBON DIOXIDE LEVEL 28 MMOL/L (20-31); CHLORIDE LEVEL 106 MMOL/L (98-107); CHOLESTEROL LEVEL 180 MG/DL (<200); CHOLESTEROL RISK RATIO 4.50 (<5); CREATININE FOR GFR 0.88 MG/DL (0.70-1.30); GLOMERULAR FILTRATION RATE > 90.0 (>56); LDL CHOLESTEROL 129.4 MG/DL (<100); NON-HDL-C 140.0 MG/DL; POTASSIUM SERUM 4.7 MMOL/L (3.5-5.1); SODIUM LEVEL 144 MMOL/L (136-145); TRIGLYCERIDES LEVEL 53 MG/DL (<150)
[2025-09-04 14:50] LABS: FREE T4 1.09 NG/DL (0.89-1.76)
== END ==
LOC: M SFHCADAM 08:00
PROVIDERS: ATTEND Family Medicine
DX: E78.5 Hyperlipidemia, unspecified (principal); R53.82 Chronic fatigue, unspecified; I11.9 Hypertensive heart disease without heart failure; R94.6 Abnormal results of thyroid function studies; Z13.1 Encounter for screening for diabetes mellitus; Z12.5 Encounter for screening for malignant neoplasm of prostate
CPT/HCPCS: 80053; 80061; 83036; 84439; 84443; 85027; G0103